=== PATIENT | female | born 1960 | race Caucasian/White ===

== ENCOUNTER 2020-04-25 10:23 | Outpatient (CLI) | payer OTHER, SELFPAY ==
--- NOTE | ~2020-04-25 | MM_ITS ---
EXAMINATION: MM screening [facility] BI w lester HISTORY: Screening mammogram TECHNIQUE: Craniocaudal and mediolateral oblique 3-D tomosynthesis images were obtained and synthetic 2-D images were generated. CAD analysis was submitted and interpreted. COMPARISON: 02/24/2019, 02/19/2018, 11/13/2016 BREAST PARENCHYMAL COMPOSITION: There are scattered areas of fibroglandular density. FINDINGS: A mass in the posterior third of the outer right breast demonstrates a waxing and waning ap pearance, likely a cyst. There is no evidence of suspicious mass, calcification, or architectural dis tortion to suggest malignancy in either breast. There has been no suspicious interval change. IMPRESSION: 1. No mammographic evidence of malignancy. 2. Recommend routine screening mammography in one year. BI-RADS Category 2: Benign finding(s). Reviewed, dictated and finalized at location A.
== END 2020-04-25 10:24 | disposition home or self-care (01) ==
PROVIDERS: PCP Registered Nurse; Visit Provider Nurse Practitioner Obstetrics & Gynecology
DX: Z12.31 Encounter for screening mammogram for malignant neoplasm of breast (principal)
CPT/HCPCS: 77063; 77067

== ENCOUNTER 2020-05-19 08:50 | Outpatient (NON) | payer OTHER, SELFPAY ==
[2020-05-20 06:46] LABS: SARS-CoV-2 RNA PCR Positive
== END 2020-05-19 08:51 ==
PROVIDERS: PCP Registered Nurse; Visit Provider Registered Nurse
DX: U07.1 COVID-19 (principal)
CPT/HCPCS: 87635; C9803; U0003

== ENCOUNTER 2021-01-15 02:32 | Inpatient (IN) | payer OTHER, SELFPAY ==
--- NOTE | ~2021-01-15 | CT_ITS ---
EXAMINATION: CT abdomen pelvis wo con DATE: 01/16/2021 14:04 INDICATION: Worsening abdominal pain, diverticulitis TECHNIQUE: Computed tomography (CT) of the abdomen and pelvis was performed without intravenous contr ast. The dose-length product (DLP) was 799.15 mGy-cm. Automated exposure control and iterative recons truction technique were employed. COMPARISON: 01/15/2021 FINDINGS: There is increased atelectasis of the lung bases, left greater than right. The heart size i s normal. The liver is diffusely low in attenuation when compared with the spleen, consistent with he patic steatosis. Hyperattenuating material in the gallbladder could reflect vicarious excretion of co ntrast from recent CT examination. The spleen and adrenal glands are normal. Pancreas divisum is note d. The kidneys are unremarkable. There is persistent inflammatory change of the ascending colon with interval increase in mesenteric fluid. No free intraperitoneal gas is identified. There are no dilate d loops of bowel. A small volume of pelvic ascites is present. No pathologically enlarged abdominal o r pelvic lymph nodes are identified. IMPRESSION: 1. Diverticulitis of the ascending colon with interval increase in adjacent inflammatory fluid in the mesentery. Reviewed, dictated and finalized at location B. IMPRESSION: 1. Diverticulitis of the ascending colon with interval increase in adjacent inf lammatory fluid in the mesentery.
--- NOTE | ~2021-01-15 | CT_ITS ---
EXAMINATION: CT abdomen pelvis w con DATE: 01/15/2021 04:22 INDICATION: Right lower quadrant abdominal pain for one day TECHNIQUE: Computed tomography (CT) of the abdomen and pelvis was performed with 100 cc Omnipaque 350 intravenous contrast. Automated exposure control and iterative reconstruction technique were employe d. Exam dose: 800.50 mGy-cm total exam DLP. COMPARISON: None. FINDINGS: There is bibasilar atelectasis, primarily in the dependent lower lobes. Normal heart size. No pericardial or pleural effusion. Diffuse hepatic steatosis. No hepatic space-occupying mass lesion. The gallbladder is unremarkable; n o gallbladder wall thickening or pericholecystic fluid or fat stranding. No bile duct or pancreatic d uct dilatation. No pancreatic mass lesion or calcification. Normal splenic size. Normal morphology of the adrenal glands. A small cyst of each kidney is suggested. No urinary tract calculus or hydroureteronephrosis. The uri nary bladder, uterus and adnexal areas are unremarkable. Normal caliber of the abdominal aorta. No intraperitoneal or retroperitoneal or pelvic mass lesion or adenopathy or ascites. Diverticulosis of the left and right colon. There is prominent pericolic fat stranding around the asc ending colon and thickening of the wall of the colon this region. There is diverticulosis of the asce nding colon. Diverticulitis of the ascending colon is suspected. No abscess cavity is identified. Normal appendix. No bowel obstruction is detected. IMPRESSION: Diverticulitis of the ascending colon Diverticulosis of left and right colon Normal appendix Gallbladder appears normal Hepatic steatosis Bibasilar atelectasis Reviewed, dictated and finalized at Location A. Reviewed, dictated and finalized at location A.
[2021-01-15 02:37] VITALS: BP 169/94; PULSE 96; RESP 20; TEMP 36.9; O2SAT 97
[2021-01-15] MEDS: ONDANSETRON INJ 4 MG/2 ML VIAL IV PUSH (03:10)
--- NOTE | 2021-01-15 03:10 | ED.GENADULT ---
HPI - General Adult General Chief complaint: Abdominal Pain Stated complaint: side pain Time Seen by Provider: 01/15/21 02:35 History of Present Illness HPI narrative: Patient 60-year-old female presents emergency department chief complaint of right lower quadrant abdominal pain. The patient reports the pain began around 8 PM yesterday reports that sharp reports not improved by anything reports is worsened with movement and palpation. The patient reports a little bit of nausea with this reports she had some diarrhea earlier reports she had no fever reports only surgical history significant for Related Data Home Medications Medication Instructions Recorded Confirmed fenofibrate micronized 134 mg PO DAILY 07/12/19 07/15/19 levothyroxine 100 mcg PO DAILY 07/12/19 07/15/19 multivitamin 1 cap PO DAILY 07/12/19 07/15/19 psyllium husk [Metamucil] 1 tbsp PO DAILY 07/12/19 07/15/19 Allergies Allergy/AdvReac Type Severity Reaction Status Date / Time No Known Allergies Allergy Verified 01/15/21 02:42 Review of Systems Review of Systems: Narrative: A 10 system review of systems was completed on the patient and is negative except for what is stated in the HPI. Nursing and ancillary documentation was reviewed. PMFSH Past Medical History Medical History Dyslipidemia Hx of adenomatous colonic polyps Hypothyroidism Surgical History Surgical History History of bunionectomy Hx of section Hx of colonoscopy Family History Family History Father Malignant neoplasm of prostate Social History Social History Years smoked: 20 Smoking status: Former smoker Tobacco type: cigarettes Alcohol intake: current Drinks per week: 3 Substance use: never Gender identity (if verbalized by the patient): Female Exam Narrative: Exam Narrative: GENERAL: Well-appearing, well-nourished, and in no acute distress. HEAD: Normocephalic, atraumatic. EYES: PERRLA and EOMI. ENT: Nares clear, no rhinorrhea or epistaxis. Mucous membranes moist. NECK: Supple. CHEST: Clear to auscultation. No respiratory distress. HEART: Regular rate and rhythm. No murmur heard. Normal peripheral pulses. ABDOMEN: Soft, tender to palpation the right lower quadrant, nondistended, normal active bowel sounds. EXTREMITIES: Normal range of motion. No edema. SKIN: Warm, dry, no rash. NEURO: No focal deficits. Alert and oriented x3. PSYCH: Normal mood and affect. Course Vital Signs Vital signs: Vital Signs Temperature 36.9 C 01/15/21 02:37 Pulse Rate 96 01/15/21 02:37 Respiratory Rate 20 01/15/21 02:37 Blood Pressure 169/94 H 01/15/21 02:37 Pulse Oximetry 97 01/15/21 02:37 Temperature 36.9 C 01/15/21 02:37 Pulse Rate 87 01/15/21 04:55 Respiratory Rate 14 01/15/21 04:55 Blood Pressure 120/61 01/15/21 04:55 Pulse Oximetry 99 01/15/21 04:55 Medical Decision Making Vital Signs Vital Signs: Vital Signs Temperature 36.9 C 01/15/21 02:37 Pulse Rate 96 01/15/21 02:37 Respiratory Rate 20 01/15/21 02:37 Blood Pressure 169/94 H 01/15/21 02:37 Pulse Oximetry 97 01/15/21 02:37 Temperature 36.9 C 01/15/21 02:37 Pulse Rate 87 01/15/21 04:55 Respiratory Rate 14 01/15/21 04:55 Blood Pressure 120/61 01/15/21 04:55 Pulse Oximetry 99 01/15/21 04:55 Lab Data Result diagrams: 01/15/21 03:16 01/15/21 03:17 Labs: Lab Results 01/15/21 01/15/21 01/15/21 Range/Units 03:16 03:17 03:17 WBC 11.4 H (4.5-10.0) K/mm3 RBC 4.69 (4.2-5.4) M/mm3 Hgb 14.4 (12.0-15.0) g/dL Hct 44.6 (37.0-47.0) % MCV 95.1 (80-100) fl MCH 30.7 (26-34) pg MCHC 32.3 (32-36) g/dl RDW 12.
[2021-01-15] MEDS: SODIUM CHLORIDE 0.9% IV 1,000 ML 999 ML IV CONT (03:11)
[2021-01-15] MEDS: HYDROmorphone HCL INJ (*CRX) 1 MG/ML SYR IV PUSH (03:15)
--- NOTE | 2021-01-15 03:15 | PC.NURSE ---
PT. states she is unable to void at this time.
[2021-01-15 03:21] LABS: Basophils Absolute Auto 0.1 K/mm3 (0.0-0.1); Basophils Percent Auto 0.8 % (0.2-1.2); Eosinophils Absolute Auto 0.1 K/mm3 (0-0.3); Eosinophils Percent Auto 0.8 % (0-4.4); Hematocrit 44.6 % (37.0-47.0); Hemoglobin 14.4 g/dL (12.0-15.0); Immature Granulocyte Absolute 0.04 K/mm3 (0.00-0.031); Immature Granulocyte Percent A 0.4 % (0-0.5); Lymphocytes Absolute Auto 1.45 K/mm3 (0.9-3.2); Lymphocytes Percent Auto 12.7 % (18.3-44.2); Mean Corpuscular HGB Conc 32.3 g/dl (32-36); Mean Corpuscular Hemoglobin 30.7 pg (26-34); Mean Corpuscular Volume 95.1 fl (80-100); Mean Platelet Volume 11.3 fl (7.4-10.4); Monocytes Absolute Auto 0.7 K/mm3 (0.1-0.6); Monocytes Percent Auto 6.3 % (2.6-8.5); Platelet Count Result 213 k/mm3 (150-375); Red Blood Count 4.69 M/mm3 (4.2-5.4); Red Cell Distribution Width 12.5 % (11.5-14.5); White Blood Count 11.4 K/mm3 (4.5-10.0)
[2021-01-15 03:32] LABS: Lipase 53 U/L (23-300)
[2021-01-15 03:34] LABS: Alanine Aminotransferase 78 U/L (4-35); Albumin Level 4.7 g/dL (3.5-5.1); Alkaline Phosphatase 53 U/L (38-126); Anion Gap 12 mmol/L (8-16); Aspartate Amino Transferase 49 U/L (14-36); Blood Urea Nitrogen 12 mg/dL (7-17); Calcium 9.7 mg/dL (8.4-10.2); Carbon Dioxide 20 mmol/L (22-30); Chloride 107 mmol/L (98-107); Estimated CRCL calculation 75 ml/min; Estimated Glomerular Filt Rate > 60; Glucose 147 mg/dL (65-110); Sodium 139 mmol/L (137-145)
[2021-01-15 04:24] LABS: Add Urine Microscopic? YES; Appearance Urine Clear (Clear); Bacteria Urine Trace /hpf; Bilirubin Urine Negative (Negative); Blood Urine Negative (Negative); Color Urine Yellow (Yellow); Glucose Urine UA Negative (Negative); Ketones Urine Trace mg/dL (Negative); Leukocyte Esterase Ur 1+ LEU/UL (Negative); Mucus Urine Few /lpf; Nitrate Urine Negative (Negative); Protein Urine 1+ mg/dL (Negative); RBC Urine 0-2 /hpf (0-2); Specific Grav Ur 1.024 (1.001-1.035); Squamous Epithelial Cell Urine Few /hpf (Few); Urobilinogen Urine Negative mg/dL (<2.0)
[2021-01-15] MEDS: PROCHLORPERAZINE EDISYLATE 10 MG/2 ML VIAL IV PUSH (04:54)
[2021-01-15 04:55] VITALS: BP 120/61; PULSE 87; RESP 14; O2SAT 99
[2021-01-15 06:55] VITALS: BP 123/74; PULSE 88; RESP 14; O2SAT 97
[2021-01-15 07:57] VITALS: BMI 31.4
[2021-01-15 08:00] VITALS: BP 140/72; PULSE 80; RESP 18; TEMP 36.6; O2SAT 97
--- NOTE | 2021-01-15 08:07 | ADMGEN ---
This patient, Angela Duran, was admitted to [facility] Surg Room 325-02. Patient/family oriented to hospital policies and general routines including ID bracelet, bed and alarms, visiting hours, pain management, procedures, bathroom and other care routines, personal items, smoking policy, room service/diet, and visiting hours. Information on how to activate the Rapid Response Team has been discussed. Patient/Family are encouraged to report perceived risks to care and to ask questions if they do not understand what they are told or what they should do.
[2021-01-15] MEDS: SODIUM CHLORIDE 0.9% IV 1,000 ML 125 ML IV CONT (08:11)
--- NOTE | 2021-01-15 09:36 | PM.IMHP ---
H&P: HPI History of Present Illness Date/Time: 01/15/21 09:36 Chief Complaint: Abdominal pain Narrative: 60yo female with hx of diverticulosis but not diverticulitis here for worsening abdominal pain and found to have diverticulitis. Patient had a colonoscopy in Jun 2019 and found to have diverticulosis, internal hemorrhoids, colonic and rectal polyps. Polyps removed with pathology showing tubular and tubulovillous adenoma. 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 The pain persisted through out the day but was mild. Abdomen was tender to touch. The pain continued the following day and was steadily worsening until it became severe around 8PM. Pain is worse with movement. No nausea or vomiting. Had diarrhea on the 01/13 and the morning on 01/14 but took anti-gas medication and antidiarrheal medication. No further BMs since. She is not passing much flatus. No melana or hematochezia. No GERD symptoms. No weight loss. No fever or chills. The remainder of the ROS was nevgative. Her symptoms became unbearable in the culinary chef hours and presented to the ED around 230am In the ED, she was hemodynamically stable with an elevated BP 169/94. She does not have HTN. WBC was 11.4K, serum bicarb 20 and mild elevation of the AST/ALT. CT A/P showing diverticulitis of the ascending colon and hepatic steatosis. UA noted and UCx collected. She was started on IV fluids and Zosyn. She was admitted for further care. Review of Systems Review of Systems: All systems reviewed & are unremarkable except as noted in HPI and below PMFSH Past Medical History Medical History Dyslipidemia Hx of adenomatous colonic polyps Hypothyroidism Surgical History Surgical History History of bunionectomy Hx of section Hx of colonoscopy Family History Family History Father Malignant neoplasm of prostate Mother COVID Pacemaker Son Diabetes mellitus Social History Social History (Updated 01/15/21 @ 09:57 by Ozzie Díaz MD) Social History: Patient lives at home with her , daughter and son. They have a dog. She quit tobacco in October of 2017. She smoked 1-2 packs every month for 25 years prior to that. She drinks 4-5 alcoholic drinks per week. No drug use. She is a full code. She nominates her to be the individual would make medical decisions for her if she is not able. Years smoked: 20 Smoking status: Former smoker Tobacco type: cigarettes Smoking end date: 10/28/17 Alcohol intake: current Drinks per week: 5 Substance use: never Gender identity (if verbalized by the patient): Female Spiritual care concerns: No Meds Home Medications and Allergies Home Medications Medication Instructions Recorded Confirmed Type Metamucil 1 tbsp PO DAILY 07/12/19 01/15/21 History fenofibrate micronized 134 mg PO DAILY 07/12/19 01/15/21 History levothyroxine 100 mcg PO DAILY 07/12/19 01/15/21 History multivitamin 1 cap PO DAILY 07/12/19 01/15/21 History ciprofloxacin HCl 500 mg PO Q12H #13 tablet 01/18/21 Rx hydrocodone-acetaminophen 1 tablet PO Q4H PRN #20 tablet 01/18/21 Rx metronidazole 250 mg PO Q8H #19 tablet 01/18/21 Rx Allergies Allergy/AdvReac Type Severity Reaction Status Date / Time No Known Allergies Allergy Verified 01/15/21 02:42 Vital Signs Vital Signs - 24 hr 01/15/21 02:37 01/15/21 04:55 01/15/21 06:55 Temperature 98.5 F Pulse Rate 96 87 88 Respiratory Rate 20 14 14 Blood Pressure 169/94 H 120/61 123/74 Pulse Oximetry 97 99 97 01/15/21 08:00 Temperature 97.8 F Pulse Rate 80 Respiratory Rate 18 Blood Pressure 140/72 Pulse Oximetry 97 Exam Narrative: Exam Narrative: AF 97.8 140/72 80 18 97% ra Gen - well-nourished, well-developed female in no acute respi
[2021-01-15] MEDS: ENOXAPARIN 40 MG/0.4 ML SYRINGE SUB-Q (12:40)
[2021-01-15] MEDS: LEVOTHYROXINE SODIUM 100 MCG TABLET PO (12:40)
[2021-01-15] MEDS: HYDROcodone/acetaminophen (*CRX) 5-325 MG TABLET 1 TAB PO ×2 (12:40→18:52)
[2021-01-15 14:00] VITALS: BP 127/76; PULSE 77; RESP 16; TEMP 36.7; O2SAT 96
[2021-01-15] MEDS: SODIUM CHLORIDE 0.9% IV 1,000 ML 100 ML IV CONT ×2 (14:18→17:11)
[2021-01-15 22:00] VITALS: BP 129/69; PULSE 85; RESP 18; TEMP 37.4; O2SAT 97
[2021-01-16] MEDS: HYDROcodone/acetaminophen (*CRX) 5-325 MG TABLET 1 TAB PO ×3 (00:55→13:19)
[2021-01-16] MEDS: SODIUM CHLORIDE 0.9% IV 1,000 ML 100 ML IV CONT ×2 (03:56→14:20)
[2021-01-16 05:53] VITALS: BP 134/74; PULSE 81; RESP 18; TEMP 36; O2SAT 96
[2021-01-16 06:29] LABS: Basophils Percent Auto 0.4 % (0.2-1.2); Eosinophils Absolute Auto 0.1 K/mm3 (0-0.3); Eosinophils Percent Auto 0.7 % (0-4.4); Hematocrit 38.6 % (37.0-47.0); Hemoglobin 12.4 g/dL (12.0-15.0); Immature Granulocyte Absolute 0.04 K/mm3 (0.00-0.031); Immature Granulocyte Percent A 0.4 % (0-0.5); Lymphocytes Absolute Auto 1.19 K/mm3 (0.9-3.2); Lymphocytes Percent Auto 13.3 % (18.3-44.2); Mean Corpuscular HGB Conc 32.1 g/dl (32-36); Mean Corpuscular Volume 96.5 fl (80-100); Mean Platelet Volume 11.7 fl (7.4-10.4); Monocytes Absolute Auto 0.6 K/mm3 (0.1-0.6); Monocytes Percent Auto 6.9 % (2.6-8.5); Neutrophils Percent Auto 78.3 % (45.5-73.1); Platelet Count Result 176 k/mm3 (150-375); Red Cell Distribution Width 12.6 % (11.5-14.5)
[2021-01-16 06:59] LABS: Alanine Aminotransferase 58 U/L (4-35); Albumin Level 3.9 g/dL (3.5-5.1); Alkaline Phosphatase 39 U/L (38-126); Anion Gap 7 mmol/L (8-16); Aspartate Amino Transferase 39 U/L (14-36); Bilirubin,Total 1.5 mg/dL (0.2-1.3); Blood Urea Nitrogen 5 mg/dL (7-17); Calcium 8.6 mg/dL (8.4-10.2); Carbon Dioxide 22 mmol/L (22-30); Chloride 107 mmol/L (98-107); Estimated CRCL calculation 75 ml/min; Estimated Glomerular Filt Rate > 60; Glucose 128 mg/dL (65-110); Sodium 136 mmol/L (137-145)
[2021-01-16] MEDS: LEVOTHYROXINE SODIUM 100 MCG TABLET PO (07:10)
[2021-01-16] MEDS: ENOXAPARIN 40 MG/0.4 ML SYRINGE SUB-Q (09:12)
[2021-01-16 11:30] VITALS: O2SAT 92
--- NOTE | 2021-01-16 13:27 | PM.IMPN ---
Progress Note: A&P Assessment and Plan (1) Acute diverticulitis: Code(s): K57.92 - Diverticulitis of intestine, part unspecified, without perforation or abscess without bleeding Status: Acute Assessment and Plan: CT Abd/Pelvis 01/15 showing acute diverticulitis of the ascending colon. No evidence of perforation. WBC 11K. She had a recent colonoscopy that showed diverticulosis but no malignancy. She has been started on Zosyn. WBC normal now and LFTs even improved but she is having considerable pain with guarding and peritoneal signs. Nml BMs so doubt obstruction. Continue IV abx. Repeat CT scan to exclude perforation. Repeat CT showing increase in inflammatory stranding. Make NPO. Contineu IV abx, (2) Elevated LFTs: Code(s): R79.89 - Other specified abnormal findings of blood chemistry Status: Acute Assessment and Plan: AST 49 and ALT 78. This could be chronic related to the hepatic steatosis and/or from focal inflammatory response from the diverticulitis. Repeat levels better. Continue to monitor (3) Hypothyroidism: Code(s): E03.9 - Hypothyroidism, unspecified Status: Acute Assessment and Plan: She states she has her TSH checked regularly so will defer rechecking it here. Continue Synthroid. (4) Dyslipidemia: Code(s): E78.5 - Hyperlipidemia, unspecified Status: Acute Assessment and Plan: LFTs mildly elevated as discussed above. Fenofibrate on hold. (5) DVT prophylaxis: Code(s): Z29.9 - Encounter for prophylactic measures, unspecified Status: Acute Assessment and Plan: Lovenox Subjective Date/time seen: 01/16/21 13:27 Interval history: 60yo female with hypothyroidism here for abdominal pain found to have diverticulitis. Patient continued to have increasing amount of pain in the right lower quadrant. Pain is worse with movement. Having normal bowel movements. No diarrhea. Feeling nauseous now. Has been up walking in her room. Exam Narrative: Exam Narrative: AF 96.8 134/74 81 18 92% ra Gen - NARD Chest - lungs are clear to auscultation anteriroly and in the flanks CV - RRR S1/S2 Abd - abdomen was soft, more protuberant, +BS. Diffuse tenderness but worse in the right mid abdomen. Rebound and referred pain noted still. + voluntary guarding Ext - no pedal edema. Psych - normal mood but obvious pain Skin - warm and dry. Not diaphoretic Objective Data Vital Signs Vital Signs: Vital Signs - 24 hr 01/15/21 14:00 01/15/21 22:00 01/16/21 05:53 Temperature 98.0 F 99.3 F 96.8 F L Pulse Rate 77 85 81 Respiratory Rate 16 18 18 Blood Pressure 127/76 129/69 134/74 Pulse Oximetry 96 97 96 01/16/21 11:30 Temperature Pulse Rate Respiratory Rate Blood Pressure Pulse Oximetry 92 Intake/Output Intake/Output: Intake & Output 01/13/21 01/14/21 01/15/21 01/16/21 23:59 23:59 23:59 23:59 Intake Total 5210 2320 Balance 5210 2320 Meds/Results Medications: Active Medications Generic Name Dose Route Start Last Admin Trade Name Freq PRN Reason Stop Dose Admin Acetaminophen 650 mg 01/15/21 10:10 Acetaminophen 325 Mg Tablet PO Q6H PRN Mild Pain (1-3) or Fever Hydrocodone Bitart/Acetaminophen 1 tab 01/15/21 10:10 01/16/21 13:19 Hydrocodone/Acetaminophen (*Crx) 5-325 Mg Tablet PO 1 tab Q6H PRN Administration Pain Rated 4-6 Enoxaparin Sodium 40 mg 01/15/21 10:15 01/16/21 09:12 Enoxaparin 40 Mg/0.4 Ml Syringe SUB-Q 40 mg DAILY PREMA Administration Hydromorphone HCl 1 mg 01/15/21 06:03 Hydromorphone Hcl Inj (*Crx) 1 Mg/Ml Syr IV PUSH Q4H PRN Pain Rated 7-10 Piperacillin/Tazobactam/Dextrose 3.375 gm in 50 mls @ 100 mls/hr 01/15/21 12:00 01/16/21 12:54 Zosyn 3.375 Gm/D5w 50ml Pm IVPB Infused Q6HR PREMA Infusion Sodium Chloride 1,000 mls @ 100 mls/hr 01/15/21 06:05 01/16/21 03:56 Normal Saline Iv IV CONT 100 mls/hr
[2021-01-16 13:36] VITALS: BP 156/75; PULSE 89; RESP 16; TEMP 35.9; O2SAT 95
[2021-01-16] MEDS: ONDANSETRON INJ 4 MG/2 ML VIAL IV PUSH (14:20)
[2021-01-16] MEDS: SODIUM CHLORIDE 0.9% IV 1,000 ML 70 ML IV CONT (17:41)
[2021-01-16] MEDS: HYDROcodone/acetaminophen (*CRX) 7.5-325 MG TABLET 1 TAB PO (17:41)
[2021-01-16 22:00] VITALS: BP 158/72; PULSE 84; RESP 18; TEMP 36.4; O2SAT 97
[2021-01-17] MEDS: HYDROcodone/acetaminophen (*CRX) 7.5-325 MG TABLET 1 TAB PO ×2 (00:18→08:34)
[2021-01-17] MEDS: ACETAMINOPHEN 325 MG TABLET 650 MG PO ×2 (03:10→23:36)
[2021-01-17] MEDS: SODIUM CHLORIDE 0.9% IV 1,000 ML 70 ML IV CONT ×2 (03:10→17:29)
[2021-01-17 06:00] VITALS: BP 134/69; PULSE 82; RESP 20; TEMP 35.9; O2SAT 94
[2021-01-17 07:09] LABS: Basophils Percent Auto 0.4 % (0.2-1.2); Eosinophils Absolute Auto 0.1 K/mm3 (0-0.3); Eosinophils Percent Auto 0.9 % (0-4.4); Hematocrit 37.6 % (37.0-47.0); Hemoglobin 11.9 g/dL (12.0-15.0); Lymphocytes Absolute Auto 1.38 K/mm3 (0.9-3.2); Lymphocytes Percent Auto 13.8 % (18.3-44.2); Mean Corpuscular HGB Conc 31.6 g/dl (32-36); Mean Corpuscular Hemoglobin 30.7 pg (26-34); Mean Corpuscular Volume 96.9 fl (80-100); Mean Platelet Volume 11.8 fl (7.4-10.4); Monocytes Absolute Auto 0.8 K/mm3 (0.1-0.6); Monocytes Percent Auto 8.2 % (2.6-8.5); Neutrophils Absolute Auto 7.6 K/mm3 (1.3-6.7); Neutrophils Percent Auto 75.7 % (45.5-73.1); Platelet Count Result 175 k/mm3 (150-375); Red Blood Count 3.88 M/mm3 (4.2-5.4); Red Cell Distribution Width 12.5 % (11.5-14.5)
[2021-01-17 07:30] LABS: Anion Gap 9 mmol/L (8-16); Blood Urea Nitrogen 4 mg/dL (7-17); Calcium 8.7 mg/dL (8.4-10.2); Carbon Dioxide 21 mmol/L (22-30); Chloride 107 mmol/L (98-107); Estimated CRCL calculation 85 ml/min; Estimated Glomerular Filt Rate > 60; Glucose 98 mg/dL (65-110); Potassium 3.7 mmol/L (3.4-5.0); Sodium 137 mmol/L (137-145)
[2021-01-17] MEDS: ENOXAPARIN 40 MG/0.4 ML SYRINGE SUB-Q (12:03)
[2021-01-17 14:00] VITALS: BP 137/64; PULSE 84; RESP 18; TEMP 35.5; O2SAT 96
[2021-01-17] MEDS: HYDROcodone/acetaminophen (*CRX) 5-325 MG TABLET 1 TAB PO ×2 (14:25→23:37)
[2021-01-17] MEDS: ONDANSETRON INJ 4 MG/2 ML VIAL IV PUSH (16:47)
--- NOTE | 2021-01-17 17:50 | PM.IMPN ---
Progress Note: A&P Assessment and Plan (1) Acute diverticulitis: Code(s): K57.92 - Diverticulitis of intestine, part unspecified, without perforation or abscess without bleeding Status: Acute Assessment and Plan: CT Abd/Pelvis 01/15 showing acute diverticulitis of the ascending colon. No evidence of perforation. WBC 11K. She had a recent colonoscopy that showed diverticulosis but no malignancy. She has been started on Zosyn. WBC normal now and LFTs improved. Still had considerable pain with guarding and peritoneal signs so CT A/p repeated w/o contrast showing diverticulitis of the ascending colon with interval increase in adjacent inflammatory fluid in the mesentery. Continue IV abx. Start diet. Advance as tolerated (2) Elevated LFTs: Code(s): R79.89 - Other specified abnormal findings of blood chemistry Status: Acute Assessment and Plan: AST 49 and ALT 78. This could be chronic related to the hepatic steatosis and/or from focal inflammatory response from the diverticulitis. Repeat levels better. Continue to monitor (3) Hypothyroidism: Code(s): E03.9 - Hypothyroidism, unspecified Status: Acute Assessment and Plan: She states she has her TSH checked regularly so will defer rechecking it here. Continue Synthroid. (4) Dyslipidemia: Code(s): E78.5 - Hyperlipidemia, unspecified Status: Acute Assessment and Plan: LFTs mildly elevated as discussed above. Fenofibrate on hold. (5) DVT prophylaxis: Code(s): Z29.9 - Encounter for prophylactic measures, unspecified Status: Acute Assessment and Plan: Lovenox Subjective Date/time seen: 01/17/21 17:50 Interval history: 60yo female with hypothyroidism here for abdominal pain found to have diverticulitis. Pain still 5/10 even after pain medications. Se feels her bladder gets distended causing abd pain. Able to void normally and feels that she is emptying her bladder. BMs are loose but no blood. Walking in the room. Exam Narrative: Exam Narrative: AF 96.0 137/64 84 18 96% ra Gen - NARD Chest - CTA bilaterally, nml RR CV - RRR S1/S2 Abd - soft, protuberant, +BS. Diffuse tenderness but worse in the right mid abdomen Ext - no pedal edema. Psych - normal mood and affect Skin - warm and dry. Not diaphoretic Objective Data Vital Signs Vital Signs: Vital Signs - 24 hr 01/16/21 22:00 01/17/21 06:00 01/17/21 14:00 Temperature 97.6 F 96.7 F L 96 F L Pulse Rate 84 82 84 Respiratory Rate 18 20 18 Blood Pressure 158/72 H 134/69 137/64 Pulse Oximetry 97 94 96 Intake/Output Intake/Output: Intake & Output 01/14/21 01/15/21 01/16/21 01/17/21 23:59 23:59 23:59 23:59 Intake Total 5210 6450 3060 Balance 5210 6450 3060 Meds/Results Medications: Active Medications Generic Name Dose Route Start Last Admin Trade Name Freq PRN Reason Stop Dose Admin Acetaminophen 650 mg 01/15/21 10:10 01/17/21 03:10 Acetaminophen 325 Mg Tablet PO 650 mg Q6H PRN Administration Mild Pain (1-3) or Fever Hydrocodone Bitart/Acetaminophen 1 tab 01/17/21 14:17 01/17/21 14:25 Hydrocodone/Acetaminophen (*Crx) 5-325 Mg Tablet PO 1 tab Q4H PRN Administration Pain Rated 4-6 Enoxaparin Sodium 40 mg 01/15/21 10:15 01/17/21 12:03 Enoxaparin 40 Mg/0.4 Ml Syringe SUB-Q 40 mg DAILY PREMA Administration Hydromorphone HCl 1 mg 01/15/21 06:03 Hydromorphone Hcl Inj (*Crx) 1 Mg/Ml Syr IV PUSH Q4H PRN Pain Rated 7-10 Piperacillin/Tazobactam/Dextrose 3.375 gm in 50 mls @ 100 mls/hr 01/15/21 12:00 01/17/21 17:29 Zosyn 3.375 Gm/D5w 50ml Pm IVPB 100 mls/hr Q6HR PREMA Administration Sodium Chloride 1,000 mls @ 70 mls/hr 01/15/21 06:05 01/17/21 17:29 Normal Saline Iv IV CONT 70 mls/hr .[id number] PREMA Administration Levothyroxine Sodium 100 mcg 01/15/21 10:15 01/17/21 06:10 Levothyroxine Sodium 100 Mcg Tablet PO Not Given
[2021-01-17 21:36] VITALS: BP 137/73; PULSE 81; RESP 18; TEMP 37.2; O2SAT 96
[2021-01-18] MEDS: LEVOTHYROXINE SODIUM 100 MCG TABLET PO (05:23)
[2021-01-18 05:38] VITALS: BP 129/80; PULSE 73; RESP 18; TEMP 36.5; O2SAT 97
[2021-01-18] MEDS: SODIUM CHLORIDE 0.9% IV 1,000 ML 70 ML IV CONT (09:34)
[2021-01-18] MEDS: ENOXAPARIN 40 MG/0.4 ML SYRINGE SUB-Q (09:34)
[2021-01-18] MEDS: HYDROcodone/acetaminophen (*CRX) 5-325 MG TABLET 1 TAB PO (12:48)
[2021-01-18 14:00] VITALS: BP 130/77; PULSE 70; RESP 16; TEMP 36.5; O2SAT 97
--- NOTE | 2021-01-18 16:38 | PM.DS ---
DS: Admitting Diagnosis Admitting Diagnosis Abdominal pain DS: Discharge Diagnosis Discharge Diagnosis (1) Acute diverticulitis: Code(s): K57.92 - Diverticulitis of intestine, part unspecified, without perforation or abscess without bleeding Status: Acute Assessment and Plan: CT Abd/Pelvis 01/15 showing acute diverticulitis of the ascending colon. No evidence of perforation. WBC 11K. She had a recent colonoscopy that showed diverticulosis but no malignancy. She was started on Zosyn. WBC normalized. LFTs improved. Still had considerable pain with guarding so CT A/P repeated 01/17 showing diverticulitis of the ascending colon with interval increase in adjacent inflammatory fluid in the mesentery. She was started on clear liquids and diet advanced. She tolerated low fiber diet and pain improved. Nml BMs. She feels ready for discharge. Patient able to be discharged home today. (2) Elevated LFTs: Code(s): R79.89 - Other specified abnormal findings of blood chemistry Status: Acute Assessment and Plan: AST 49 and ALT 78. This could be chronic related to the hepatic steatosis and/or from focal inflammatory response from the diverticulitis. Repeat levels improved. (3) Hypothyroidism: Code(s): E03.9 - Hypothyroidism, unspecified Status: Acute Assessment and Plan: She states she has her TSH checked regularly so we deferred rechecking it here. We continued her Synthroid. (4) Dyslipidemia: Code(s): E78.5 - Hyperlipidemia, unspecified Status: Acute Assessment and Plan: LFTs mildly elevated as discussed above. Fenofibrate held DS: Summary Hospital Course Reason for hospitalization: 60yo female here for abdominal pain found to have diverticulitis. Please see H&P for details Hospital Course: Please see above for details of hospital course. Status at Discharge Cognitive/behavioral status at discharge: stable Time Spent with Patient Time attestation: Total time spent providing and/or coordinating discharge services:35 minutes Time spent: Greater than 30 minutes Exam Narrative: Exam Narrative: AF 97.7 130/77 70 16 97% ra Gen - NARD Chest - CTA bilaterally, nml RR CV - RRR S1/S2 Abd - soft, less protuberant, +BS. Minimal right sided tenderness now Ext - no pedal edema. Psych - normal mood and affect Skin - warm and dry. Discharge Plan Discharge Attending physician on discharge: Ozzie Díaz Discharging Clinician: Ozzie Díaz Anticipated Discharge Date/Time: 01/18/21 16:45 Patient Disposition: Home, Self-Care Activity: as tolerated Diet: low fiber Discharge Instructions: Please avoid large gathering, wear face coverings in public and practice social distance. Please complete your antibiotic course even if you are starting to feel well. Take precautions to avoid falls. Rise slowly from a lying or sitting position. Pause before standing or walking. Contact your doctor or call 911 and come to the Emergency Room if you have any fever, worsening abdominal pain or other worrisome symptoms. Avoid NSAIDs (ibuprofen, naproxen, Aleve). Tylenol is safe to take. Follow-up with your primary care doctor in 1-2 weeks. Please call for appointment. Patient Instructions: Antibiotic Form, Diverticulitis (DC) Stand Alone Forms: General Discharge Information Follow-up/Referrals: Jayashree,Jodie [employer] [Primary Care Provider] - Call for Appointment Discharge Medications: New hydrocodone-acetaminophen 5-325 mg Tablet 1 tablet PO Q4H PRN (Reason: Pain Rated 4-6) Qty: 20 RF: 0 metronidazole 250 mg tablet 250 mg PO Q8H Qty: 19 RF: 0 ciprofloxacin HCl 500 mg tablet 500 mg PO Q12H Qty: 13 RF: 0 Continued fenofibrate micronized 134 mg capsule 134 mg PO DAILY RF: 0 levothyroxine 100 mcg tablet 100 mcg PO DAILY RF: 0 multivitamin Capsule 1 cap PO DAILY RF: 0 Held Metamucil 3.
== END 2021-01-18 17:30 | disposition home or self-care (01) | DRG 392 ==
LOC: ANHED 06:05 → ANH3MEDSUR 01-17 14:21
PROVIDERS: Admitting Provider Internal Medicine; Emergency Provider Emergency Medicine; PCP Registered Nurse; Visit Provider Internal Medicine
DX: K57.32 Diverticulitis of large intestine without perforation or abscess without bleeding (principal); R79.89 Other specified abnormal findings of blood chemistry; E03.9 Hypothyroidism, unspecified; E78.5 Hyperlipidemia, unspecified; Z86.010 Personal history of colon polyps; Z79.899 Other long term (current) drug therapy
CPT/HCPCS: 36415; 74176; 74177; 80048; 80053; 80076; 81001; 83690; 85025; 87086; 87088; 96361; 96374; 96375; 99285; A9270; J0780; J1170; J1650; J2405; J2543; J7030; Q9967

== ENCOUNTER 2021-05-08 16:32 | Outpatient (CLI) | payer OTHER, SELFPAY ==
--- NOTE | ~2021-05-08 | MM_ITS ---
CORRECTED REPORT Ordering provider changed to Yuridia Carpenter. Dr. Rosangela Richardson removed as attending provider. 05/10/2021 sef 05/14/2021 sef EXAMINATION: MM screening ruth ann BI w lester HISTORY: Screening mammogram TECHNIQUE: Craniocaudal and mediolateral oblique 3-D tomosynthesis images were obtained and synthetic 2-D images were generated. CAD analysis was submitted and interpreted. COMPARISON: No prior mammogram is available for comparison at this institution. BREAST PARENCHYMAL COMPOSITION: There are scattered areas of fibroglandular density. FINDINGS: Approximately 7.5 mm circumscribed mass is noted posteriorly in the lower outer right breast. Diagnostic right mammogram and right breast ultrasound examination are recommended. Otherwise there is no evidence of suspicious mass, calcification, or architectural distortion to suggest malignancy in either breast. IMPRESSION: 1. 7.5 mm circumscribed mass in posterior lower outer right breast 2. Diagnostic right mammogram and right breast ultrasound examination are recommended. BI-RADS Category 0: Incomplete: Needs additional imaging evaluation. Reviewed, dictated and finalized at location A. ER STRAIGHTENER MTDD IMPRESSION: 1. 7.5 mm circumscribed mass in posterior lower outer right breast 2. Diagnostic right mammogram and right breast ultrasound examination are recom mended. BI-RADS Category 0: Incomplete: Needs additional imaging evaluation.
== END 2021-05-08 16:33 | disposition home or self-care (01) ==
LOC: ANHIMG 16:34
PROVIDERS: PCP Registered Nurse; Visit Provider Nurse Practitioner Obstetrics & Gynecology
DX: Z12.31 Encounter for screening mammogram for malignant neoplasm of breast (principal); R92.8 Other abnormal and inconclusive findings on diagnostic imaging of breast
CPT/HCPCS: 77063; 77067

== ENCOUNTER 2021-06-19 13:35 | Outpatient (CLI) | payer OTHER, SELFPAY ==
--- NOTE | ~2021-06-19 | MMUS_ITS ---
EXAMINATION: MM diagnostic ruth ann RT w lester, US breast RT limited HISTORY: Possible right breast mass on screening mammogram TECHNIQUE: Additional 3-D tomosynthesis images of the right breast were performed and synthetic 2-D i mages were generated. CAD analysis was submitted and interpreted. High resolution limited right breas t ultrasound was performed. COMPARISON: 05/08/2021, 04/25/2020, 02/24/2019, 02/19/2018 BREAST PARENCHYMAL COMPOSITION: The breasts are heterogeneously dense, which may obscure small masses . FINDINGS: MAMMOGRAPHIC FINDINGS: There appears to be a stable low-density obscured mass in the posterior third of the outer breast at the 9:00 location 7 cm from the nipple. Spot compression views demonstrate no suspicious interval marcio nge when compared to prior mammograms. No suspicious calcification or architectural distortion are id entified. ULTRASOUND: There is no evidence of focal abnormal solid or cystic mass in the vicinity of the mammographic findi ng in question. IMPRESSION: 1. No mammographic or sonographic evidence of malignancy. 2. Recommend routine screening mammography in one year. BI-RADS Category 2: Benign finding(s). Reviewed, dictated and finalized at location A. ORK SYSTEMS CONSULTANT IMPRESSION: 1. No mammographic or sonographic evidence of malignancy. 2. Recommend routine screening mammography in one year. BI-RADS Category 2: Benign finding(s).
== END 2021-06-19 13:36 | disposition home or self-care (01) ==
PROVIDERS: PCP Registered Nurse; Visit Provider Nurse Practitioner Obstetrics & Gynecology
DX: R92.8 Other abnormal and inconclusive findings on diagnostic imaging of breast (principal)
CPT/HCPCS: 76642; 77061; 77065; G0279

== ENCOUNTER → 2021-11-13 11:39 | Outpatient (CLI) | payer OTHER, SELFPAY ==
--- NOTE | ~2021-11-13 | US_ITS ---
US abdomen limited INDICATION: Elevated liver function tests. PROCEDURE: Realtime right upper abdominal ultrasound. COMPARISON: No prior studies for comparison. FINDINGS: The pancreas is normal without focal mass or pancreatic ductal dilation. Liver echotexture is increased, consistent with fatty infiltration. There is normal directional flow in the portal ve in. The gallbladder is normal without stones, gallbladder wall thickening or pericholecystic fluid. Comm on bile duct measures 3.5 mm. No sonographic Richter's sign. IMPRESSION: 1: Hepatic steatosis. Reviewed, dictated and finalized at location A. IMPRESSION: 1: Hepatic steatosis.
== END ==
PROVIDERS: PCP Registered Nurse; Visit Provider Registered Nurse
DX: K76.0 Fatty (change of) liver, not elsewhere classified (principal)
CPT/HCPCS: 76705

== ENCOUNTER 2022-07-12 15:17 | Outpatient (CLI) | payer OTHER, SELFPAY ==
--- NOTE | ~2022-07-12 | MM_ITS ---
EXAMINATION: MM screening ruth ann BI w lester HISTORY: Screening TECHNIQUE: Craniocaudal and mediolateral oblique 3-D tomosynthesis images were obtained and synthetic 2-D images were generated. CAD analysis was submitted and interpreted. COMPARISON: Comparison to multiple prior studies sequentially, with oldest reviewed study dated 11/13. BREAST PARENCHYMAL COMPOSITION: Breast composed of scattered areas of fibroglandular density. FINDINGS: The left breast is stable without evidence for malignancy. There are developing asymmetries centered in the outer aspect of the right breast. IMPRESSION: 1. Developing right breast asymmetries. 2. Additional mammographic views and possible breast ultrasound are recommended. BI-RADS Category 0: Incomplete: Needs additional imaging evaluation. Reviewed, dictated and finalized at location A. SALTER IMPRESSION: 1. Developing right breast asymmetries. 2. Additional mammographic views and possible breast ultrasound are recommended . BI-RADS Category 0: Incomplete: Needs additional imaging evaluation.
== END 2022-07-12 15:18 | disposition home or self-care (01) ==
PROVIDERS: PCP Registered Nurse; Visit Provider Nurse Practitioner Obstetrics & Gynecology
DX: Z12.31 Encounter for screening mammogram for malignant neoplasm of breast (principal); R92.8 Other abnormal and inconclusive findings on diagnostic imaging of breast
CPT/HCPCS: 77063; 77067

== ENCOUNTER 2022-08-01 12:47 | Outpatient (CLI) | payer OTHER, SELFPAY ==
--- NOTE | ~2022-08-01 | MMUS_ITS ---
EXAMINATION: MM diagnostic ruth ann RT w lester, US breast RT complete HISTORY: Comparison to multiple prior studies sequentially, with oldest reviewed study dated 02/20/20 18. TECHNIQUE: Additional 3-D tomosynthesis images of the right breast were performed and synthetic 2-D i mages were generated. CAD analysis was submitted and interpreted. High resolution complete right deya st ultrasound was performed. COMPARISON: Comparison to multiple prior studies sequentially, with oldest reviewed study dated 02/19. BREAST PARENCHYMAL COMPOSITION: Breast composed of scattered areas of fibroglandular density FINDINGS: MAMMOGRAPHIC FINDINGS: There is a low-density mass in the lower outer quadrant of the right breast. There are no suspicious calcifications or architectural distortion. ULTRASOUND: Real-time complete ultrasound of the right breast including all 4 quadrants in the subareolar locatio ns:. There is a 3 mm cyst at 5:00, 10 cm from the nipple. At 7:00, 3 cm from the nipple there is an 8 mm cyst corresponding to the mammographic finding. No suspicious masses to suggest malignancy. IMPRESSION: 1. No evidence for malignancy in the right breast. Benign findings. 2. Routine yearly screening mammogram and regular clinical breast examination are recommended. BI-RADS Category 2: Benign finding(s). Reviewed, dictated and finalized at location A. LANCE MODEL IMPRESSION: 1. No evidence for malignancy in the right breast. Benign findings. 2. Routine yearly screening mammogram and regular clinical breast examination a re recommended. BI-RADS Category 2: Benign finding(s).
== END 2022-08-01 12:48 | disposition home or self-care (01) ==
PROVIDERS: PCP Registered Nurse; Visit Provider Nurse Practitioner Obstetrics & Gynecology
DX: R92.8 Other abnormal and inconclusive findings on diagnostic imaging of breast (principal)
CPT/HCPCS: 76641; 77061; 77065; G0279

== ENCOUNTER 2022-11-19 11:37 | Outpatient (NON) | payer OTHER, SELFPAY | END 2022-11-19 11:38 | disposition home or self-care (01) | LOC: ANHLAB 11-20 11:39 | PROVIDERS: PCP Registered Nurse; Visit Provider Nurse Practitioner | DX: C44.619 Basal cell carcinoma of skin of left upper limb, including shoulder (principal) | CPT/HCPCS: 88305 ==

== ENCOUNTER 2022-12-24 10:42 | Outpatient (NON) | payer OTHER, SELFPAY | END 2022-12-24 10:43 | disposition home or self-care (01) | PROVIDERS: PCP Registered Nurse; Visit Provider Nurse Practitioner | DX: C44.619 Basal cell carcinoma of skin of left upper limb, including shoulder (principal) | CPT/HCPCS: 88305 ==

== ENCOUNTER 2023-06-17 12:45 | Outpatient (CLI) | payer OTHER, SELFPAY ==
--- NOTE | ~2023-06-17 | MMUS_ITS ---
EXAMINATION: MM diagnostic ruth ann BI w lester, US breast BI complete HISTORY: 9:00 right breast lump TECHNIQUE: ML, MLO and CC full field and spot 3-D tomosynthesis images of both breasts were performed and synthetic 2-D images were generated. CAD analysis was submitted and interpreted. High resolution complete bilateral breast examination including all 4 quadrants and subareolar areas ultrasound was performed. COMPARISON: August 01, 2022 diagnostic right mammogram and complete right breast ultrasound examinat ion July 12, 2022 bilateral screening mammogram 06/19/2021 diagnostic right mammogram and limited right breast ultrasound May 08, 2021 bilateral screening BREAST PARENCHYMAL COMPOSITION: The breasts are heterogeneously dense, which may obscure small masses . FINDINGS: MAMMOGRAPHIC FINDINGS: Focal asymmetry is noted in the mid to upper outer breasts. No malignant calcification, skin thickening or retraction is detected.. ULTRASOUND: Right breast: 7:00 3 cm from nipple: Parallel circumscribed 7.5 x 4.4 x 7.9 mm sonolucency without internal vascula rity, with through transmission, consistent with benign finding, not significantly changed since 2022. No suspicious mass or shadowing of the right breast is noted otherwise. Left breast: No suspicious mass or shadowing or other significant abnormality of the left breast is detected. IMPRESSION: 1. Benign finding 2. Routine annual mammographic screening is recommended BI-RADS Category 2: Benign finding(s). Reviewed, dictated and finalized at location A. R TECHNICIAN IMPRESSION: 1. Benign finding 2. Routine annual mammographic screening is recommended BI-RADS Category 2: Benign finding(s).
== END 2023-06-17 12:46 | disposition home or self-care (01) ==
PROVIDERS: PCP Registered Nurse; Visit Provider Nurse Practitioner Obstetrics & Gynecology
DX: N63.15 Unspecified lump in the right breast, overlapping quadrants (principal)
CPT/HCPCS: 76641; 77062; 77066; G0279

== ENCOUNTER 2023-09-16 08:53 | Outpatient (CLI) | payer OTHER, SELFPAY ==
--- NOTE | ~2023-09-16 | DEXA_ITS ---
Bone Density Report Name: LUIS MAJOR Age: 62 Sex: Female Ethnicity: White Date of : 1960 Indication: osteopenia; parental hip fracture; cancer; Referring Provider: NIESHA, NIRMALA Study: Bone densitometry was performed. Exam Date: September 16, 2023 Accession number: [id number] Bone Density: Region BMD T-score Z-score Classification AP Spine(L1-L4) 1.051 0.0 1.6 Normal Femoral Neck (Left) 0.679 -1.5 -0.1 Osteopenia Total Hip (Left) 0.861 -0.7 0.4 Normal Femoral Neck (Right) 0.731 -1.1 0.4 Osteopenia Total Hip (Right) 0.800 -1.2 -0.1 Osteopenia Total Hip Mean 0.830 -1.0 0.2 Normal World Health Organization criteria for BMD impression classify patients as: Normal (T-score at or above -1.0), Osteopenia (T-score between -1.0 and -2.5), or Osteoporosis (T-score at or below -2.5). 10-year Fracture Risk(1): Major Osteoporotic Fracture 16% Hip Fracture 0.8% Reported Risk Factors: [place] (), Neck BMD=0.679, BMI=30.4, parental fracture (1) FRAX(R) Version 3.08. Fracture probability calculated for an untreated patient. Fracture probability may be lower if the patient has received treatment. Previous Exams: Region Exam Age BMD T-score BMD Change BMD Change Date g/cm2 vs Baseline vs Previous AP Spine (L1-L4) 09/16/2023 62 1.051 0.0 0.054 (5.4%)# 0.051 (5.1%)# 02/19/2018 57 0.999 -0.4 0.003 (0.3%) 0.003 (0.3%) 12/27/2015 55 0.997 -0.5 Total Hip(Left) 09/16/2023 62 0.861 -0.7 0.015 (1.8%)# 0.044 (5.4%)# 02/19/2018 57 0.816 -1.0 -0.029 (-3.4%) -0.029 (-3.4%) 12/27/2015 55 0.845 -0.8 Total Hip(Right) 09/16/2023 62 0.800 -1.2 -0.005 (-0.6%) 0.021 (2.6%)# 02/19/2018 57 0.779 -1.3 -0.026 (-3.2%) -0.026 (-3.2%) 12/27/2015 55 0.805 -1.1 *Denotes significance at 95% confidence level, LSC for AP Spine = 0.022 g/cm2, LSC for Total Hip = 0.027 g/cm2 # Denotes dissimilar scan types or analysis methods Clinical Information Provided by Patient: Parent has had a hip fracture Has used the following medications: Vitamin D, Calcium Has the following medical conditions: Cancer Patient maximum height was 67 Menopause Age: 50 Drinks caffeinated beverages Onset of menses at age 12 Number of children 2 Impression: The patient has low bone mass, based on the Left Femoral Neck T-score. The patient has an estimated ten-year risk of hip fracture of 0.8% and an estimated ten-
== END 2023-09-16 08:54 | disposition home or self-care (01) ==
PROVIDERS: PCP Registered Nurse; Visit Provider Registered Nurse
DX: Z78.0 Asymptomatic menopausal state (principal); M85.852 Other specified disorders of bone density and structure, left thigh; M85.851 Other specified disorders of bone density and structure, right thigh
CPT/HCPCS: 77080

== ENCOUNTER 2024-08-12 15:28 | Outpatient (CLI) | payer OTHER, SELFPAY ==
--- NOTE | ~2024-08-12 | MM_ITS ---
EXAMINATION: MM screening ruth ann BI w lester HISTORY: Screening TECHNIQUE: Craniocaudal and mediolateral oblique 3-D tomosynthesis images were obtained and synthetic 2-D images were generated. CAD analysis was submitted and interpreted. COMPARISON: Comparison to multiple prior studies sequentially, with oldest reviewed study dated 03/31. BREAST PARENCHYMAL COMPOSITION: Not dense: There are scattered areas of fibroglandular density. FINDINGS: There is developing asymmetry in the upper outer quadrant of the right breast, posterior th ird. The left breast is stable without evidence for malignancy. IMPRESSION: 1. Developing right breast asymmetry. 2. Additional mammographic views and possible breast ultrasound are recommended. BI-RADS Category 0: Incomplete: Needs additional imaging evaluation. Reviewed, dictated and finalized at location B. FMASTER IMPRESSION: 1. Developing right breast asymmetry. 2. Additional mammographic views and possible breast ultrasound are recommended . BI-RADS Category 0: Incomplete: Needs additional imaging evaluation.
--- OUTSIDE RECORDS SUMMARY | 2024-08-12 15:32 | XMS_ITS | Clinical Summary ---
Author Organization [facility] Address [address], [facility] [[email or web address]] [address] [place] [address] Phone Care Team Providers Care Research Worker Kitchen Name Role Phone Jodie Blanc APRN, DB Primary Care Provider + Social History Tobacco Use Types Packs/Day Years Used Date Smoking Tobacco: Never Assessed Comments Unknown Sex and Gender Information Value Date Recorded Sex Assigned at Not on file Legal Sex Female 11:27 PM CDT Gender Identity Not on file Sexual Orientation Not on file Plan of Treatment Health Maintenance Due Date Last Done Comments Hepatitis C Virus (HCV) Screening 1960 TdaP Immunization 1960 Pap Smear 1981 Cervical Cancer Screening (CCS) 1990 HPV/Cotest 1990 Cologuard 2010 Immunochemical Fecal Occult Blood 2010 Mammogram 2010 Pneumococcal Immunization (5 0+ years) (1 of 1 - PCV) 2010 Zoster Immunization (1 of 2) 2010 Influenza Immunization (#1) 2024 SARS-COV-2 Immunization ( - 2023- season) 2024 Colonoscopy 07/15/2024 07/15/2019 Colorectal Cancer Screening 07/15/2024 Respiratory Syncytial Virus (RSV) Immunization (Adult) (1 - 1-dose 75+ series) 10/21/2035 07/15/2019 Hepatitis B Immunization Aged Out No longer eligible based on patient's age to complete this topic Meningococcal Immunization (ACWY) Aged Out No longer eligible based on patient's age to complete this topic Pneumococcal Immunization Combined Aged Out No longer eligible based on patient's age to complete this topic Rotavirus Immunization Aged Out No lo nger eligible based on patient's age to complete this topic Procedures Procedure Name Priority Date/Time Associated Diagnosis Comments COLONOSCOPY Routine 07/15/2019 from Last 3 Months or Most Recently Relevant to Health Maintenance Results * COLONOSCOPY (07/15/2019) En Sanchez DO PROCEDURE/MINOR SURGICAL ORDERA BLES Final Result from Last 3 Months or Most Recently Relevant to Health Maintenance Care Teams Research Worker Kitchen Relationship Specialty Start Date End Date Jodie Blanc, JACLYN, STOVE INSTALLER [address] [place] [id number] PCP - General Family Medicine 07/20/19
--- OUTSIDE RECORDS SUMMARY | 2024-08-12 15:32 | XMS_ITS | Clinical Summary ---
Author Organization [facility] Address [address] [place] [address] Care Team Providers Care District Sales Representative Name Role Phone Jodie Blanc Primary Care Provider Allergies No known active allergies Medications VITAMIN E OR Take 800 mg by mouth daily. Active Cholecalciferol (VITAMIN D) 125 MCG (5000 UT) Cap 06/30/19 24 Active atorvastatin (LIPITOR) 20 MG tabletIndications: Mixed hyperlipidemia TAKE ONE TABLET (20MG) BY MOUTH NIGHTLY AT BEDTIME. 90 tablet 3 03/04/20 24 Active icosapent ethyl (VASCEPA) 1 G capsuleIndications :Elevated triglycerides with high cholesterol Take 2 capsules (2 g total) by mouth 2 (two) times daily with meals. 360 capsule 3 04/01/20 24 Active Na sulfate-K sulfate-Mg sulfate (SUPREP BOWEL PREP KIT) 17.5-3.13-1.6 GM/177ML SolutionIndication s:Screening for colon cancer,History of colon polyps Take 177 mLs by mouth every 12 (twelve) hours. Per GI instructions 354 mL 05/26/20 24 Active levothyroxine (SYNTHROID) 100 MCG tabletIndications: Acquired hypothyroidism TAKE ONE TABLET BY MOUTH ONCE DAILY IN THE MORNING 90 tablet 3 06/22/20 24 Active traZODone (DESYREL) 50 MG tabletIndications: Primary insomnia Take 1 tablet (50 mg total) by mouth nightly at bedtime. 30 tablet 1 07/01/19 25 Active losartan (COZAAR) 50 MG tabletIndications: Primary hypertension Take 1 tablet (50 mg total) by mouth daily. 90 tablet 3 07/01/19 25 Active cefdinir (OMNICEF) 300 MG Cap capsuleIndications :Acute cough Take 2 capsules (600 mg total) by mouth daily. 14 capsule 08/09/19 25 Active azithromycin (ZITHROMAX Z-MINERVA) 250 MG tabletIndications: Acute cough Take 2 tablets by mouth on day one then 1 daily for four days. 6 tablet 08/09/19 25 Active benzonatate (TESSALON PERLES) 100 MG capsuleIndications :Acute cough Take 1 capsule (100 mg total) by mouth every 6 (six) hours as needed for Cough. 30 capsule 08/09/19 25 Active benzonatate (TESSALON PERLES) 100 MG capsuleIndications :Acute cough Take 1 capsule (100 mg total) by mouth 3 (three) times daily as needed for Cough. 20 capsule 08/04/19 25 025 Discontin ued(Dupli martha Med) Active Problems Problem Noted Date Diagnosed Date History of colon polyps 05/26/2024 Varicose veins of bilateral lower extremities wi th pain 05/20/2024 Primary hypertension 11/05/2022 Hepatic steatosis 11/15/2021 Elevated liver function tests 11/15/2021 Diverticulosis 02/12/2021 Acquired hypothyroidism 03/22/2019 Mixed hyperlipidemia 03/22/2019 Elevated triglycerides with high cholesterol Vitamin D deficiency 03/22/2019 Proteinuria 11/11/2012 Overview (05/20/2024): Proteinuria;Practice ID: [id number] Postmenopausal bleeding 10/28/2012 Overview (05/20/2024): Postmenopausal bleeding;Recorded Elsewhere: No Location: [facility] Source: EHR Chronic: N Practice ID: [id number] Billable Time: 03:00:00 PM Microscopic hematuria 11/11/2011 Overview (05/20/2024): MICROSCOPIC HEMATURIA;Recorded Elsewhere: No Location: [facility] Source: EHR Chronic: N Practice ID: [id number] Billable Time: 10:30:00 AM Resolved Problems Problem Noted Date Diagnosed Date Resolved Date Screening for colon cancer 05/26/2024 1 08/01/2023 Encounters Date Type Department Care Team Description 08/05/2024 LendUp Message Enc [facility] Medical Group Family & Internal Medicine [address] [address] Jodie Blanc APNP Blood pressure 08/04/2024 2:00 PM TRIMMER OPERATOR Office Visit [address] [address] Jodie Blanc APNP Sore Throat; Cough; Headache 08/04/2024 Travel 08/04/[address] [address] Jodie Blanc APNP Error 08/03/[address] [address] Jodie Blanc APNP Lab Results 07/29/2024 8:40 AM TRIMMER OPERATOR Laboratory Only [address] [address] Jodie Blanc APNP 07/29/2024 Travel 07/23/[address] [address] Jodie Blanc APNP Prior Authorization ( Icosapent Ethyl 1gm capsules) 07/01/2024 8:00 AM TRIMMER OPERATOR Office Visit [address] [address] Jodie Blanc APNP Hypertension 07/01/[address] [address] Jodie Blanc APNP Lab Order 07/01/2024 Travel 06/03/2024 8:20 AM TRIMMER OPERATOR Allied Health/Nurse Visit [address] [address] Jodie Blanc APNP Allied Health Visit (Blood pressure check) 06/03/2024 Travel 05/26/2024 10:40 AM TRIMMER OPERATOR [facility] [address] [place] [phone] Jodie Blanc APNP Barnes, Lawrence J, ISAAC New Patient (New patient) 05/26/2024 Orders Only [facility] [place] [facility] [address] [place] [address] Familia Brooks MD 05/26/2024 Telephone [facility] Family & Internal Medicine [address] [address] Jodie Blanc APNP Blood Pressure 05/26/2024 Travel 05/20/2024 2:00 PM TRIMMER OPERATOR [facility] [address] [facility], [address] [place] [address] Crispin Ga MD Varicose Veins 05/20/2024 Travel from Last 3 Months Immunizations Name Administration Dates Next Due Arexvy Respiratory Syncytial Virus (RSV, adjuvanted) 0.5 mL, PF 03/25/2023 FLUCELVAX (ccIIV3, TRIVALENT, 0.5mL) 03/30/2024 Flucelvax 6 Months+ (Prefill ed Syringe) 03/29/2020,04/02/2019,04/06/2018,2016 Influenza (Generic) 06/20/2014 Influenza Adult (Generic) 03/25/2023,03/20/2022 MODERNA COVID-19 (12+) MRNA, LNP-S, PF, 100 MCG/ 0.5 ML DOSE 05/15/2021 PFIZER COVID-19 (12+) MRNA, LNP-S, PF, ELODIA-SUCROSE, 30 MCG/0.3 ML (COMIRNATY) 07/01/2024 PFIZER COVID-19 BIVALENT (12 +) mRNA, LNP-S, PF, 30 MCG/0.3 ML DOSE 08/05/2022 Pneumococcal (Prevnar 20) 05/13/2023 Shingrix 03/10/2019,01/01/2019 Tdap (Boostrix) 04/05/2019 Family History Medical History Relation Comments Arthritis Brother Cancer Father prostate Heart Mother pacemaker Heart Disease Mother Diabetes Paternal Grandmother Diabetes Son Relation Status Comments Brother Father Alive Mother Paternal Grandmother Son Social History Tobacco Use Types Packs/Day Years Used Date Smoking Tobacco: Former Cigarettes 0.3 20 0 10/28/1998 - 10/28/2018 Smokeless Tobacco: Never Tobacco Cessation:Counseling Given: Yes Alcohol Use Standard Drinks/Week Comments Yes 10 (1 standard drink = 0.6 oz pu re alcohol) AUDIT-C Answer Date Recorded Frequency of Alcohol Consumption 2-3 times a wee k 03/22/2019 Average Number of Drinks 1 or 2 019 Frequency of Binge Drinking Not on file 03/01 PHQ-2 Answer Date Recorded Patient Health Questionnaire-2 Score 0 05/26/2024 Comments No Sex and Gender Information Value Date Recorded Sex Assigned at Female 08/04/2024 2:15 PM TRIMMER OPERATOR Legal Sex Female 12:19 PM CDT Gender Identity Not on file Sexual Orientation Not on file Last Filed Vital Signs Vital Sign Reading Time Taken Comments Blood Pressure 162/94 08/04/2024 2:54 PM TRIMMER OPERATOR Pulse 96 08/04/2024 2:15 PM TRIMMER OPERATOR Temperature 37 C (98.6 F) 08/04/2024 2:15 PM TRIMMER OPERATOR Respiratory Rate 18 08/04/2024 2:15 PM TRIMMER OPERATOR Oxygen Saturation 97% 08/04/2024 2:15 PM TRIMMER OPERATOR Inhaled Oxygen Concentration - - Weight 89.8 kg (197 lb 14.4 oz) 08/04/2024 2:15 PM TRIMMER OPERATOR Height 170.2 cm (5' 7 ) 08/04/2024 2:15 PM TRIMMER OPERATOR Body Mass Index 31 08/04/2024 2:15 PM TRIMMER OPERATOR Plan of Treatment Upcoming Encounters Date Type Department Care Team (Latest Contact Info) Description 08/24/2024 2:20 PM TRIMMER OPERATOR Office Visit [facility] Medical Group Family & Internal Medicine [address] [phone] Jodie Blanc APNP [address] [place] [id number] 09/10/2024 11:28 AM CDT Hospital Encounter [facility] [address] [place] [address] Familia Brooks MD [address] [address] 09/10/2024 11:28 AM CDT - 09/10/2024 12:02 PM CDT Surgery [facility] [address] [place] [address] Familia Brooks MD [address] [id number] COLONOSCOPY DIAGNOSTIC WITH/WITHOUT SPECIMEN BRUSH/WASH Scheduled Procedures Name Priority Associated Diagnoses Date/Ti me COLONOSCOPY DIAGNOSTIC WITH/WITHOUT SPECIMEN BRUSH/WASH Screening for colon cancer History of colon polyps 09/10/2024 11:28 AM CDT Health Maintenance Due Date Last Done Comments Cervical Cancer Screening Pap with HPV Testing (Age 30 to 64) Every 5 Years 1990 Annual Physical 05/13/2024 05/13/2023, 10/31/2021 Mammogram Screening 06/17/2024 06/17/2023, 08/01/2022, 07/12/2022, Additional history exists PHQ-2 (Physician [place]) 06/30/2024 05/26/2024 Colorectal Cancer Screening Colonoscopy (10 Years) 07/30/2024 Cervical Cancer Screening Pap Smear (Age 30 to 64) Every 3 Years 05/19/2026 05/19/2023, 12/13/2021 Cervical Cancer Screening with HPV 05/19/2026 DTaP, Tdap and Td Vaccines (2 - Td or Tdap) 04/05/2029 04/05/2019 Zoster Vaccines Completed 03/10/2019, 01/01/2019 Hepatitis C Completed 10/31/2021 RSV Immunization or 60+ Years Completed 03/25/2023 Pneumococcal Vaccine: Pediatrics (0 to 5 Years) and At-Risk Patients (6 to 64 Years) Aged Out 05/13/2023 No longer eligible based on patient's age to complete this topic Influenza Adult Completed 03/30/2024, 03/01, 03/20/2022, Additional history exists COVID-19 Vaccine Completed 07/01/2024, 11/2022, 05/15/2021, Additional history exists Meningococcal B Vaccine Aged Out No l onger eligible based on patient's age to complete this topic Meningococcal Vaccine Aged Out No favio brent eligible based on patient's age to complete this topic RSV Immunizations Under 20 Months Aged Out No longer eligible based on patient's age to complete this topic Procedures Procedure Name Priority Date/Time Associated Diagnosis Comments CULTURE STREP A Routine 08/04/2024 2:59 PM TRIMMER OPERATOR Sore throat STREP A RAPID Routine 08/04/2024 Sore throat Body aches CORONAVIRUS (COVID-19) INFLUENZA A & B ANTIGEN IA PANEL Routine 08/04/2024 Sore throat Body aches COLLECTION VENOUS BLOOD VENIPUNCTURE Routine 07/29/2024 9:06 AM TRIMMER OPERATOR Primary hypertension Mixed hyperlipidemia Vitamin D deficiency General medical examination HEMOGLOBIN, GLYCOSYLATED Routine 07/29/2024 8:32 AM TRIMMER OPERATOR Elevated glucose URINALYSIS, AUTO, COMPLETE Routine 07/29/2024 8:32 AM TRIMMER OPERATOR Primary hypertension CBC W/DIFF AUTOMATED Routine 07/29/2024 8:32 AM TRIMMER OPERATOR General medical examination Primary hypertension Mixed hyperlipidemia LIPID PANEL Routine 07/29/2024 8:32 AM TRIMMER OPERATOR Mixed hyperlipidemia TSH W/REFLEX Routine 07/29/2024 8:32 AM TRIMMER OPERATOR Mixed hyperlipidemia VITAMIN D, 25 OH Routine 07/29/2024 8:32 AM TRIMMER OPERATOR Vitamin D deficiency URIC ACID BLOOD Routine 07/29/2024 8:32 AM TRIMMER OPERATOR Primary hypertension Mixed hyperlipidemia COMPREHENSIVE METABOLIC PANEL Routine 07/29/2024 8:32 AM TRIMMER OPERATOR Primary hypertension MAMMOGRAM GENERIC (SCAN ORDER) 06/17/2023 HEPATITIS C ANTIBODY Routine 10/31/2021 12:01 PM CDT Need for hepatitis C screening test from Last 3 Months or Most Recently Relevant to Health Maintenance Results * CULTURE STREP A (MG/SJS/SMD Only) (08/04/2024 2:59 PM TRIMMER OPERATOR) THROAT CULTURE STREP A ONLY Negative for Group A Streptococci Negative for Group A Streptococci 08/05/2024 6:40 PM TRIMMER OPERATOR [facility] STRUCTURE OF ANTERIOR PORTION OF NECK / Unknown 08/04/2024 2:59 PM TRIMMER OPERATOR Jodie YATES MICROBIOLOGY - GENERAL RUTLANDPaulina BISHOP Final Result Performing Organization Address City/[facility]/ZIP Co de Phone Number [facility] [address] [place] [address], [place] [phone] * CORONAVIRUS (COVID-19) INFLUENZA A & B ANTIGEN IA PANEL (08/04/2024) [facility] CORONAVIRUS ANTIGEN IA NEGATIVE NEGATIVE [facility] INFLUENZA A NEGATIVE NEGATIVE [facility] INFLUENZA B NEGATIVE NEGATIVE [facility] Internal Control: VALID VALID [facility] NASAL STRUCTURE / Unknown 08/04/2024 Jodie YATES MICROBIOLOGY - GENERAL ORDE EDNA Final Result Performing Organization Address [facility]/ZIP Co de Phone Number [facility] [address] [place] [address], * STREP A RAPID (08/04/2024) RAPID STREP TEST NEGATIVE NEGATIVE [facility] Internal Control: VALID VALID [facility] STRUCTURE OF ANTERIOR PORTION OF NECK / Unknown 08/04/2024 Jodie YATES MICROBIOLOGY - GENERAL ORDE RABLES Final Result Performing Organization Address City/[facility]/ZIP Co de Phone Number [facility] [address] [place] [address], [place] * TSH W/REFLEX (07/29/2024 8:32 AM TRIMMER OPERATOR) TSH 2.587 0.358 - 3.740 uIU/ML 07/29/2024 3:29 PM TRIMMER OPERATOR [facility] 07/29/2024 8:32 AM TRIMMER OPERATOR Jodie YATES LABORATORY Final Resul t Performing Organization Address [facility] de Phone Number [id number] [place] [address], [place] [phone] * (ABNORMAL) HEMOGLOBIN, GLYCOSYLATED (07/29/2024 8:32 AM TRIMMER OPERATOR) HGB A1C 6.0 4.5 - 6.2 % 08/04/2024 10:09 AM TRIMMER OPERATOR [facility] ESTIMATED AVG GLUCOSE 126(H) 74 - 106 MG/DL 08/04/2024 10:09 AM TRIMMER OPERATOR [facility] 07/29/2024 8:32 AM TRIMMER OPERATOR Jodie YATES LABORATORY Final Resul t Performing Organization Address [facility] Co de Phone Number [phone] [place] [address], [place] [phone] * (ABNORMAL) URINALYSIS (07/29/2024 8:32 AM TRIMMER OPERATOR) COLOR (U) YELLOW 07/29/2024 2:34 PM TRIMMER OPERATOR [facility] TRANSPARENCY CLOUDY(A) CLEAR 07/29/2024 2:[address] [facility] SPECIFIC GRAVITY (U) >1.030 1.003 - 1.040 07/29/2024 2:[address] [facility] U PH 5.5 5.0 - 9.0 07/29/2024 2:[address] [facility] PROTEIN RANDOM (U) NEGATIVE NEGATIVE 07/29/2024 2:[address] [facility] GLUCOSE (U) NEGATIVE NEGATIVE 07/29/2024 2:[address] [facility] KETONES MG/DL (U) NEGATIVE NEGATIVE 07/29/2024 2:[address] [facility] BILIRUBIN (U) NEGATIVE NEGATIVE 07/29/2024 2:[address] [facility] BLOOD (U) NEGATIVE NEGATIVE 07/29/2024 2:[address] [facility] UROBILINOGEN 0.2 0.0 - 2.0 EU/DL 07/29/2024 2:[address] [facility] NITRITES NEGATIVE NEGATIVE 07/29/2024 2:[address] [facility] LEUKOCYTES (U) NEGATIVE NEGATIVE 07/29/2024 2:[address] [facility] RBC/HPF 0-3 0 - 3 /HPF 07/29/2024 2:[address] [facility] WBC/HPF 0-3 0 - 3 /HPF 07/29/2024 2:[address] [facility] EPI/HPF 0-3 /HPF 07/29/2024 2:34 PM TRIMMER OPERATOR [facility] BACTERIA (U) TRACE(A) NONE SEEN 07/29/2024 2:[address] [facility] AMORPHOUS SEDIMENT PRESENT 07/29/2024 2:[address] [facility] URINE SPECIMEN OBTAINED BY CLEAN CATCH PROCEDURE / Unknown 07/29/2024 8:32 AM TRIMMER OPERATOR us Jodie H Jayashree YATES URINE ORDERABLES Final Resu lt [facility] [address] [facility] [place] [address], [place] [phone] * (ABNORMAL) COMPREHENSIVE METABOLIC PANEL (07/29/2024 8:32 AM TRIMMER OPERATOR) Pathologist [facility] SODIUM S/P/B 141 136 - 145 MMOL/L 07/29/2024 3:29 PM TRIMMER OPERATOR [facility] POTASSIUM S/P/B 4.7 3.5 - 5.1 MMOL/L 07/29/2024 3:29 PM TRIMMER OPERATOR [facility] CHLORIDE S/P/B 105 98 - 107 MMOL/L 07/29/2024 3:29 PM TRIMMER OPERATOR [facility] CO2 26.4 21 - 32 MMOL/L 07/29/2024 3:29 PM TRIMMER OPERATOR [facility] GLUCOSE 116(H) 70 - 99 MG/DL 07/29/2024 3:[address] [facility] BUN 12 7 - 18 MG/DL 07/29/2024 3:29 PM TRIMMER OPERATOR [facility] CREATININE S/P/B 0.76 0.55 - 1.02 MG/DL 07/29/2024 3:29 PM TRIMMER OPERATOR [facility] CALCIUM S/P/B 9.0 8.4 - 10.5 MG/DL 07/29/2024 3:29 PM TRIMMER OPERATOR [facility] BILIRUBIN TOTAL S/P/B 0.7 0.2 - 1.0 MG/DL 07/29/2024 3:[address] [facility] ALKALINE PHOSPHATASE S/P/B 72 50 - 130 U/L 07/29/2024 3:29 PM TRIMMER OPERATOR [facility] AST 28 15 - 37 U/L 07/29/2024 3:29 PM TRIMMER OPERATOR [facility] ALT 40 14 - 59 U/L 07/29/2024 3:29 PM TRIMMER OPERATOR [facility] TOTAL PROTEIN S/P/B 7.4 6.4 - 8.2 G/DL 07/29/2024 3:29 PM TRIMMER OPERATOR [facility] ALBUMIN S/P/B 4.1 3.4 - 5.0 G/DL 07/29/2024 3:29 PM TRIMMER OPERATOR [facility] ANION GAP 9.6 5 - 15 MMOL/L 07/29/2024 3:29 PM TRIMMER OPERATOR [facility] Comment:REFERENCE RANGE NOT ESTABLISHED OSMOLALITY (CALC) 293 MOSM/KG 025 3:29 PM TRIMMER OPERATOR [facility] Comment:REFERENCE RANGE NOT ESTABLISHED GFR ESTIMATE 88(L) >90 ML/MIN/1. 73 M2 07/29/2024 3:29 PM TRIMMER OPERATOR [facility] GFR NOTES GFR REFERENCE S: 07/29/2024 3:29 PM TRIMMER OPERATOR [facility] Comment: THE ESTIMATED GFR IS CALCULATED USING THE 2020 CKD-EPI EQUATION. THE FOLLOWING CATEGORIES FOR GRADING RENAL FUNCTION ARE RECOMMENDED BY THE INTERNATIONAL SOCIETY OF NEPHROLOGY (KDIGO 2012 CLINICAL PRACTICE GUIDELINE). G1,NORMAL OR HIGH: >89 ml/min/1.73 m2 G2,MILDLY DECREASED: 60-89 ml/min/1.73 m2 G3A,MILDLY TO MODERATELY DECREASED: 45-59 ml/min/1.73 m2 G3B,MODERATELY TO SEVERELY DECREASED: 30-44 ml/min/1.73 m2 G4,SEVERELY DECREASED: 15-29 ml/min/1.73 m2 G5,KIDNEY FAILURE: <15 ml/min/1.73 m2 07/29/2024 8:32 AM TRIMMER OPERATOR us Jodie YATES LABORATORY Final Resul t [facility] [address] [place] [address], * (ABNORMAL) LIPID PANEL (07/29/2024 8:32 AM TRIMMER OPERATOR) CHOLESTEROL 210(H) <200 MG/DL 07/29/2024 3:29 PM TRIMMER OPERATOR [facility] TRIGLYCERIDES 372(H) <150 MG/DL 07/29/2024 3:[address] [facility] HDL 52 >40 MG/DL 07/29/2024 3:29 PM TRIMMER OPERATOR [facility] LDL-C 84 <100 MG/DL 07/29/2024 3:29 PM TRIMMER OPERATOR [facility] VLDL CALCULATION 74(H) 5 - 28 MG/DL 07/29/2024 3:29 PM TRIMMER OPERATOR [facility] CHOL/HDL RATIO 4.0 0.0 - 4.0 07/29/2024 3:[address] [facility] LDL/HDL 1.6 0.41 - 2.13 07/29/2024 3:29 PM TRIMMER OPERATOR [facility] NON HDL CHOLESTEROL 158(H) <140 MG/DL 07/29/2024 3:[address] [facility] 07/29/2024 8:32 AM TRIMMER OPERATOR Jodie YATES LABORATORY Final Resul t [facility] [address] [place] [address], * (ABNORMAL) CBC W/DIFF AUTOMATED (07/29/2024 8:32 AM TRIMMER OPERATOR) WBC 3.71(L) 4.00 - 10.80 x10'3/uL 07/29/2024 3:[address] [facility] RBC 4.14 4.10 - 5.40 x10'6/uL 07/29/2024 3:[address] [facility] HGB 13.1 12.0 - 16.0 G/DL 07/29/2024 3:[address] [facility] HCT 40.4 36.0 - 47.0 % 07/29/2024 3:[address] [facility] MCV 97.6 78.0 - 100.0 FL 07/29/2024 3:[address] [facility] MCH 31.6(H) 27.0 - 31.0 PG 07/29/2024 3:[address] [facility] MCHC 32.4(L) 33.0 - 36.0 G/DL 07/29/2024 3:[address] [facility] RDW 13.0 11.5 - 14.5 % 07/29/2024 3:[address] [facility] PLT 132(L) 150 - 350 x10'3/uL 07/29/2024 3:[address] [facility] MPV 12.3(H) 7.4 - 10.4 FL 07/29/2024 3:[address] [facility] DIFFERENTIAL TYPE AUTOMATED DIFFERENTIAL 07/29/2024 3:[address] [facility] NEUTROPHILS % 54.3 % 07/29/2024 3:[address] [facility] LYMPHOCYTES % 32.6 % 07/29/2024 3:[address] [facility] MONOCYTES % 8.6 % 07/29/2024 3:[address] [facility] EOSINOPHILS % 3.2 % 07/29/2024 3:[address] [facility] BASOPHILS % 1.3 % 07/29/2024 3:[address] [facility] IMMATURE GRANS % 0.0 % 07/29/2024 3:[address] [facility] ABS. NEUTROPHILS 2.01 1.60 - 8.30 x10'3/uL 07/29/2024 3:[address] [facility] ABS. LYMPHOCYTES 1.21 0.80 - 4.70 x10'3/uL 07/29/2024 3:14 PM TRIMMER OPERATOR [facility] ABS. MONOCYTES 0.32 0.00 - 1.50 x10'3/uL 07/29/2024 3:14 PM TRIMMER OPERATOR [facility] ABS. EOSINOPHILS 0.12 0.00 - 0.40 x10'3/uL 07/29/2024 3:14 PM TRIMMER OPERATOR [facility] ABS. BASOPHILS 0.05 0.00 - 0.20 x10'3/uL 07/29/2024 3:14 PM TRIMMER OPERATOR [facility] ABS. IMMATURE GRANULOCYTES 0.00 0.00 - 0.03 x10'3/uL 07/29/2024 3:14 PM TRIMMER OPERATOR [facility] 07/29/2024 8:32 AM TRIMMER OPERATOR Jodie YATES LABORATORY Final Resul t Performing Organization Address City/[facility]/ZIP Co de Phone Number [address] [address], [place] [phone] * VITAMIN D, 25 OH (07/29/2024 8:32 AM TRIMMER OPERATOR) Pathologist [facility] VITAMIN D 25 HYDROXY TOTAL S/P/B 41.4 30 - 100 NG/ML 07/29/2024 3:29 PM TRIMMER OPERATOR [facility] Comment: DEFICIENT <20 INSUFFICIENT 20-30 SUFFICIENT 30-100 07/29/2024 8:32 AM TRIMMER OPERATOR Jodie YATES LABORATORY Final Resul t Performing Organization Address City/[facility]/ZIP Co de Phone Number [facility] [address] [place] [address], [place] [phone] * (ABNORMAL) URIC ACID BLOOD (07/29/2024 8:32 AM TRIMMER OPERATOR) URIC ACID 6.4(H) 2.6 - 6.0 MG/DL 07/29/2024 2:35 PM TRIMMER OPERATOR [facility] 07/29/2024 8:32 AM TRIMMER OPERATOR Jodie YATES LABORATORY Final Resul t Performing Organization Address [facility] de Phone Number [facility] [address] [place] [address], [place] [phone] * MAMMOGRAM GENERIC (06/17/2023) Anatomical Region Laterality Modality Other 06/17/2023 [facility] Scanned SCANNING Final Resu lt * HEPATITIS C ANTIBODY (10/31/2021 12:01 PM CDT) Pathologist [facility] HEPATITIS C AB NON-REACTI VE NON-REACT RAUDEL 11/02/2021 5:50 PM CDT [facility] Comment: ANTIBODIES TO HCV NOT DETECTED. DOES NOT EXCLUDE THE POSSIBILITY OF EXPOSURE TO HCV. 10/31/2021 12:0 1 PM CDT [facility] Final Resul t Performing Organization Address [facility] Co de Phone Number [facility] [address] [place] [address], [id number] from Last 3 Months or Most Recently Relevant to Health Maintenance Insurance [facility] Care Teams District Sales Representative Relationship Specialty Start Date End Date Jodie Blanc APNP [facility] [place] [address] PCP - General NURSE PRACTITIONER 02/25/19
--- OUTSIDE RECORDS SUMMARY | 2024-08-12 15:32 | XMS_ITS | Encounter Summary ---
Author Organization [facility] Address [address] [place] [address] Care Team Providers Care Technical Specialist Name Role Phone Jodie Blanc Primary Care Provider [phone] Encounter Details Date Type Department Care Team (Late st Contact Info) Description 03/28/2022 Explore.To Yellow Pagest Message Enc [facility] Family & Internal Medicine [address] [address] Jodie Blanc APNP [address] [place] [address] [phone] Change in medication Social History Tobacco Use Types Packs/Day Years Used Date Smoking Tobacco: Former Cigarettes 0.3 20 0 10/28/1998 - 10/28/2018 Smokeless Tobacco: Never Alcohol Use Standard Drinks/Week Comments Not Currently 10 (1 standard drink = 0.6 oz pu re alcohol) AUDIT-C Answer Date Recorded Frequency of Alcohol Consumption 2-3 times a wee k 03/22/2019 Average Number of Drinks 1 or 2 019 Frequency of Binge Drinking Not on file 03/01 PHQ-2 Answer Date Recorded PHQ-2 Score - If the patient scores above 3, please move on to questions 3-9 0 05/31/2021 Comments No Sex and Gender Information Value Date Recorded Sex Assigned at Female 08/04/2024 2:15 PM CARE TRANSITION MGR Legal Sex Female 12:19 PM CDT Gender Identity Not on file Sexual Orientation Not on file documented as of this encounter Plan of Treatment Upcoming Encounters Date Type Department Care Team (Latest Contact Info) Description 08/24/2024 2:20 PM CARE TRANSITION MGR Office Visit [facility] Family & Internal Medicine - [place] [address] [place] [address] Jodie Blanc APNP [address] [place] [address] 09/10/2024 11:28 AM CDT Hospital Encounter [facility] [address] [place] [address] Familia Brooks MD [address] [address] 09/10/2024 11:28 AM CDT - 09/10/2024 12:02 PM CDT Surgery [facility] Surgery [address] [place] [id number] Familia Brooks MD [address] [address] COLONOSCOPY DIAGNOSTIC WITH/WITHOUT SPECIMEN BRUSH/WASH Scheduled Procedures Name Priority Associated Diagnoses Date/Ti me COLONOSCOPY DIAGNOSTIC WITH/WITHOUT SPECIMEN BRUSH/WASH Screening for colon cancer History of colon polyps 09/10/2024 11:28 AM CDT documented as of this encounter Visit Diagnoses Not on filedocumented in this encounter Additional Health Concerns Infection Onset Date Last Indicated Resolved Time COVID-19 Rule Out 08/04/2024 08/04/2024 08/04/2024 2:55 PM CARE TRANSITION MGR Assessment Noted Time PHQ-9 Depression Total Score: 0 05/31/20 2:49 PM CARE TRANSITION MGR documented as of this encounter Care Teams Technical Specialist Relationship Specialty Start Date End Date Jodie Blanc APNP [facility] [place] [address] PCP - General NURSE PRACTITIONER 02/25/19 documented as of this encounter
--- OUTSIDE RECORDS SUMMARY | 2024-08-12 15:32 | XMS_ITS | Clinical Summary ---
Author Organization [facility] Address [address] [place] [address] Care Team Providers Care Spool Sorter Name Role Phone Yuridia Crum PUBLIC HEALTH SOCIAL WORKER Unavailable [phone]- [phone] Jodie Blanc Primary Care Provider + Allergies No known active allergies Medications multivitamin with minerals (Multiple Vitamin-Mineral s) tablet Take 1 tablet by mouth daily Active cholecalciferol (VITAMIN D-3) 2000 unit tablet Take by mouth Active fenofibrate micronized (LOFIBRA) 134 mg capsule Take one capsule daily 0 Active levothyroxine (SYNTHROID) 100 mcg tablet 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 0 Active Active Problems Problem Noted Date Diagnosed Date Acquired hypothyroidism 03/22/2019 Vitamin D deficiency 03/22/2019 Surgical History Surgery Date Site/Laterality Comments SECTION 06/30/1996 - 06/29/1997 FOOT SURGERY 06/30/2018 - 06/29/2019 Family History Medical History Relation Name Comments Prostate cancer Father Breast cancer Paternal Grandmother Relation Name Status Comments Father Alive Maternal Grandfather Maternal Grandmother Mother Paternal Grandfather Paternal Grandmother Social History Tobacco Use Types Packs/Day Years Used Date Smoking Tobacco: Former Cigarettes Q uit: 2019 Personal Safety Answer Date Recorded Getting School Help Needed Not on file 09/13 Comments Unknown Sex and Gender Information Value Date Recorded Sex Assigned at Not on file Legal Sex Female 3:52 PM CDT Gender Identity Not on file Sexual Orientation Not on file Obstetrics History Last Filed Vital Signs Vital Sign Reading Time Taken Comments Blood Pressure - - Pulse - - Temperature - - Respiratory Rate - - Oxygen Saturation - - Inhaled Oxygen Concentration - - Weight 86.2 kg (190 lb) 06/06/2020 2:06 PM 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 Height 170.2 cm (5' 7 ) 06/06/2020 2:06 PM 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 Body Mass Index 29.76 06/06/2020 2:06 PM 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 Plan of Treatment Health Maintenance Due Date Last Done Comments Breast Cancer Screening-Mammogram 1960 Cervical Cancer Screening 1960 Colon Cancer Screening-Colonoscopy 1960 Depression Screening 1960 Hepatitis C Screening 1960 Hepatitis B Screening 1978 Regular Well Visit/Exam 18-64 1978 Influenza Vaccine (#1) 2024 2, 03/29/2020, 04/02/2019, Additional history exists DTaP/Tdap/Td Vaccine (2 - Td or Tdap) 04/05/2029 04/05/2019 Zoster Vaccine Completed 03/10/2019, 01/01/2019 Pneumococcal vaccine <65 Aged Out No longer eligible based on patient's age to complete this topic Insurance [employer] ACCESS [employer] OPEN ACCESS Care Teams Spool Sorter Relationship Specialty Start Date End Date Jodie Blanc PA [address] [place] [id number] PCP - General Nurse Practitioner 05/29/20 Yuridia Crum NP Nurse Practitioner Nurse Practitioner 04/26/20
--- OUTSIDE RECORDS SUMMARY | 2024-08-12 15:32 | XMS_ITS | Data Portability ---
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 Patient will come back in a year unless there are new symptoms. Not available 12/13/2021 13:52:20 05/19/2023 05/19/2023 Annual gynecological exam performed. Patient will come back in a year unless there are new symptoms. [email or web address] Not available 05/19/2023 14:18:56 06/17/2024 06/17/2024 Annual gynecological exam performed. Patient will come back in a year unless there are new symptoms. [email or web address] Not available 06/17/2024 14:29:53 Plan of Treatment Reminders Order Date Submit Date Provider Last Modified By Organization Details Last Modified Time Details Appointments None record ed. Lab None record ed. Referral None record ed. Procedures None record ed. Surgeries None record ed. Imaging MAMMO, diagno stic, digita l, bilate ral 2023 024 [facility], [address], [place], [address], 4 04:01:55 US, breast , unilat eral - right breast lump, around 9ocloc k [address] [facility], [address], [place], [address], 4 04:01:55 DEXA, axial skelet on + verteb ral fractu re assess ment 2023 024 [facility], [address], [place], [address], 4 04:01:56 MAMMO, diagno stic, digita l, bilate ral - right breast lump, around 9ocloc k [address], [address], [place], [address], 4 16:11:45 US, breast , unilat eral 2022 023 [facility], [address], [place], [address], 3 10:49:57 DEXA, axial skelet on + verteb ral fractu re assess ment [address], [address], [place], [address], 4 16:11:45 Medication Orders None record ed. Patient TargetsNo targets recorded. Patient InstructionsNo instructions recorded. Reason for Referral None Reported. 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 Atrop hic cell mariah connor. Elect jeannie traylor jaci d by Aurelio Reynolds , CT on 2021 at 5:12 PM ----- ----- ----- ----- ----- ----- ----- ----- ----- ----- ----- ----- ----- ----- ----- ----- ----- ---- HPV RESUL TS: HPV mRNA E6/E7 : No HPV mRNA Detec lourdes NOTE: This high risk HPV mRNA assay detec ts fourt een high- risk HPV types (16, 18, 31, 33, 35, 39, 45, 51, 52, 56, 58, 59, 66, 68) witho ut diffe renti ation . COMME NT: Note: This speci men was revie wed by a Cytot echno logis t and/o r Patho logis t (as indic ated in this repor t) after evalu ation using the Thinp rep Imagi ng Syste m. CLINI MARIELENA INFOR MATIO N: Menst rual Statu s: LMP (if appli cable ): Clini marielena Histo ry/Pr eviou s Pap: Type of Neopl bhargav (if appli cable ): Signi fican t Clini marielena Findi ngs: Other Histo ry: Hormo long (if appli cable ): PAP EDUCA COURTNEY L NOTE: The Pap Test is a scree kamlesh test with an inher ent false negat kvng rate. Liqui d-bas ed sampl ing may decre ase, but will not elimi marleni, false negat kvng resul ts. A negat kvng resul t does not precl ude the prese nce and/o r devel opmen t of disea se, since the prese nce of abnor mal cells in the sampl e depen ds on the locat ion of the lesio n and sampl ing techn ique. Ajay nued regul ar scree kamlesh is the best metho d of cance r preve ntion . If repor lourdes cytol ogic findi ng do not corre late with physi marielena and/o r histo rical findi ngs, furth er inves tigat ion is recom william d, as clini issac chaudhary nted. Not Available [facility] (Lab) [address] [facility], [place], [address], 12/17/2021 18:14:46 05/19/20 23 05/19/2023 IMAGE GUIDE D PAP AND HPV REGAR DLESS image guided Pap, HPV regardless of Pap result SEE RESULT S BELOW CASE REPOR T: Cytol ogy Gynec ologi marielena Repor t Case: [id number] Autho jie g Provi doron: Deann Razo, ELIZA Colle cted: 05/19 1650 Order ing Locat ion: [place] Patho logy Recei fred: 05/20 0609 First Scree n: Dioni ambriz, Son zavaleta, CT Speci men: Scree kamlesh Pap - Image d, Cervi x STATE MENT OF ADEQU ACY: Satis facto ry for evalu ation Trans forma tion zone compo nent canno t be defin itive ly ident ified due to the prese nce of atrop hy or other hormo nal fernandes es FINAL DIAGN OSIS: Negat kvng for Intra epith elial Lesio n or Carissa chen (NIL) . Atrop hic cell mariah connor. Micaela traylor jaci d by Son Vaughan, CT on 05/21 at 7:33 PM ----- ----- ----- ----- ----- ----- ----- ----- ----- ----- ----- ----- ----- ----- ----- ----- ----- ---- HPV RESUL TS: HPV mRNA E6/E7 : No HPV mRNA Detec lourdes NOTE: This high risk HPV mRNA assay detec ts fourt een high- risk HPV types (16, 18, 31, 33, 35, 39, 45, 51, 52, 56, 58, 59, 66, 68) witho ut diffe renti ation . COMME NT: This speci men was revie wed by a Cytot echno logis t and/o r Patho logis t (as indic ated in this repor t) after evalu ation using the Thinp rep Imagi ng Syste m. CLINI MARIELENA INFOR MATIO N: Menst rual Statu s: LMP (if appli cable ): Clini marielena Histo ry/Pr eviou s Pap: Type of Neopl bhargav (if appli cable ): Signi fican t Clini marielena Findi ngs: Other Histo ry: Hormo long (if appli cable ): PAP EDUCA COURTNEY L NOTE: The Pap Test is a scree kamlesh test with an inher ent false negat kvng rate. Liqui d-bas ed sampl ing may decre ase, but will not elimi marleni, false negat kvng resul ts. A negat kvng resul t does not precl ude the prese nce and/o r devel opmen t of disea se, since the prese nce of abnor mal cells in the sampl e depen ds on the locat ion of the lesio n and sampl ing techn ique. Ajay nued regul ar scree kamlesh is the best metho d of cance r preve ntion . If repor lourdes cytol ogic findi ng do not corre late with physi marielena and/o r histo rical findi ngs, furth er inves tigat ion is recom william d, as shakiri issac chaudhary nted. Not Available [facility] (Lab) [address], [place], [address], 05/21/2023 20:36:47 07/13/1907/12/2022 MAMMO , scree kamlesh, bilat eral No observ ation record ed. [address] [facility], [place], [address], 07/17/2022 11:13:54 07/15/19 23 07/12/2022 MAMMO , scree kamlesh, bilat eral No observ ation record ed. [address], [place], [address], 07/22/2022 11:36:20 08/02/19 23 08/01/2022 MAMMO , scree kamlesh, bilat eral No observ ation record ed. [address] [address], [place], [address], 08/08/2022 12:09:52 Result Notes None recorded. Problems Name Problem SNOMED Code Status Onset Date Resolution Date Notes Provider Name and Address Organization Details Recorded Time SNOMED CT Concept Completed 201512/13/2021 Encntr for duct maker exam (general) (routine) w/o abn findings; Practice ID: [id number] Nirmala samuels [facility] 2 13:16:05 Screenin g for malignan t neoplasm of rectum Completed 201512/13/2021 Encounter for screening for malignant neoplasm of rectum;Pr actice ID: 0001 Nirmala samuels [facility] 2 13:16:[address] Concept Completed 201612/13/2021 Encntr for general adult medical exam w/o abnormal findings; Practice ID: 0001 Nirmala samuels [facility] 2 13:16:05 Microsco pic hematuri a [id number] Completed 201112/13/2021 MICROSCOP IC HEMATURIA ;Recorded Elsewhere : No Locati on: [facility] So urce: EHR Chron ic: N Practic e ID: 0001 Bill able Time: 10:30:00 AM Nirmala samuels [facility] 2 13:16:05 Speciali zed medical examinat ion Completed 201212/13/2021 Gynecolog ical Examinati on;Record ed Elsewhere : No Locati on: [facility] So urce: EHR Chron ic: N Practic e ID: 0001 Bill able Time: 01:30:00 PM Nirmala samuels [facility] 2 13:16:05 Bone density finding [id number] Completed 201712/13/2021 Oth disrd of bone density and structure , unspecifi ed site;Wyatt rded Elsewhere : No Locati on: [facility] So urce: EHR Chron ic: N Practic e ID: 0001 Bill able Time: 01:00:00 PM Nirmala samuels [facility] 2 13:16:05 Screenin g for malignan t neoplasm of cervix Completed 201112/13/2021 Screening for malignant neoplasms of the cervix;Re corded Elsewhere : No Locati on: [facility] So urce: EHR Chron ic: N Practic e ID: 0001 Bill able Time: 10:30:00 AM Nirmala samuels [facility] 2 13:16:05 Adult health examinat ion Completed 201312/13/2021 Routine Medical Exam;Wyatt rded Elsewhere : No Locati on: [facility] So urce: EHR Chron ic: N Practic e ID: 0001 Bill able Time: 01:45:00 PM Nirmala samuels [facility] 2 13:16:05 Radiolog ic finding [id number] Completed 201512/13/2021 Oth abn and inconclus kvng findings on dx imaging of breast;Re corded Elsewhere : No Locati on: [facility] So urce: EHR Chron ic: N Practic e ID: 0001 Bill able Time: 03:33:13 PM Nirmala samuels [facility] 2 13:16:05 Postmeno pausal bleeding [id number] Completed 201212/13/2021 Postmenop ausal bleeding; Recorded Elsewhere : No Locati on: [facility] So urce: EHR Chron ic: N Practic e ID: 0001 Bill able Time: 03:00:00 PM Nirmala Hu [facility] 2 13:16:05 Body mass index 25-29 - overweig ht [id number] Completed 201612/13/2021 Body mass index (BMI) 27.0-27.9 , adult;Rec orded Elsewhere : No Locati on: [facility] So urce: EHR Chron ic: N Practic e ID: 0001 Bill able Time: 11:00:00 AM Nirmala Hu [facility] 2 13:16:05 Proteinu ortiz [id number] Completed 201212/13/2021 Proteinur ia;Practi ce ID: 0001 Nirmala [facility] 2 13:16:05 Problem Notes None recorded. Procedures Surgical History Date Name Laterality Status Provider Name and Address Organization Details Recorded Time 09/11/19 24 Most Recent Bone Density completed Pauline Christie [facility] 07/15/2024 17:59:29 05/19/20 23 Date of Last [facility]23 14:20:18 08/01/19 23 Date of Last Mammogram completed Rosangelato De La Cruz [facility] 05/19/2023 13:45:18 06/30/19 19 procedure on foot completed Rosangelato De La Cruz [facility] 05/19/2023 14:21:16 01/12/20 13 [facility] 05/19/2023 13:42:39 10/29/19 13 endometrial biopsy completed Nirmala Hu [facility] 12/13/2021 13:43:17 02/05/19 97 section completed Rosangela De La Cruz [facility] 05/19/2023 14:21:55 06/30/18 78 extraction of wisdom tooth completed Rosangela De La Cruz [facility] 05/19/2023 14:21:39 Imaging Results Imaging Date Name Status LastModified by Organiz ation Details LastModified Time 07/12/2022 MAMMO, screening, bilateral completed [address] [place] [address], [address], 07/17/2022 11:13:54 07/12/2022 MAMMO, screening, bilateral completed [address] [place] [address], [address], 07/22/2022 11:36:20 08/01/2022 MAMMO, screening, bilateral completed [address] [place] [address], [id number], 08/08/2022 12:09:52 Procedure Notes None recorded. Medical Equipment None Reported. Allergies No known drug allergies Medications Name Sig Start Date Stop Date Status Note LastModified by Organization Details LastModified Time trazodone 50 mg tablet active Not Available Not Available Not Available atorvasta tin 10 mg tablet Take 1 tablet by mouth every night at bedtime active Not Available Not Available No t Available hydrocodo ne 5 mg-acetam inophen 325 mg tablet TAKE 1 TABLET BY MOUTH EVERY 4 HOURS NEEDED 12/13 completed Not Available Not Available Not Available metronida zole 250 mg tablet TAKE 1 TABLET BY MOUTH EVERY 8 HOURS 12/13 completed Not Available Not Available Not Available ciproflox acin 500 mg tablet TAKE 1 TABLET BY MOUTH EVERY 12 HOURS 12/13 completed Not Available Not Available Not Available levothyro xine 100 mcg tablet TAKE ONE TABLET BY MOUTH ONCE DAILY IN THE MORNING active Not Available Not Available No t Available losartan 25 mg tablet TAKE ONE TABLET BY MOUTH DAILY active Not Available Not Available No t Available hydrochlo rothiazid e 12.5 mg capsule take 2 capsule by oral route every day 12/13 completed Prescrib ed Elsewher e: Yes Loca tion: [facility] odify By: robby morrissey DateTime : 11/15/19 16 01:15:00 PM Not Available Not Available Not Available Vitamin D2 1,250 mcg (50,000 unit) capsule take 1 capsule by oral route every week for 8 weeks 2017 active Prescrib ed Elsewher e: No Locat ion: [facility] odify By: [email or web address] mac DateTime : 03/12/20 18 04:06:15 PM Not Available Not Available Not Available fenofibra te 160 mg tablet Take 1 tablet every day by oral route. 05/19 completed Not Available Not Available Not Available levothyro xine 05/19 completed Not Available Not Available Not Available vitamin E active Not Available Not Yoly ilable Not Available Lipofen 50 mg capsule take 1 capsule by oral route every day with a meal 12/13 completed Prescrib ed Elsewher e: Yes Loca tion: [facility] odify By: denise tillman DateTime : 11/11/19 12 10:30:00 AM Not Available Not Available Not Available Tirosint 13 mcg capsule take 1 capsule by oral route every day 12/13 completed Prescrib ed Elsewher e: Yes Loca tion: [facility] odify By: denise tillman DateTime : 11/11/19 12 10:30:00 AM Not Available Not Available Not Available sodium,po tassium,m ag sulfates 17.5 gram-3.13 gram-1.6 gram oral soln MIX AND DRINK 177 ML BY MOUTH EVERY 12 HOURS DIRECTED PER GI INSTRUCT IONS active Not Available Not Available No t Available icosapent ethyl 1 gram capsule active Not Available Not Available Not Available Vitals Date Recorded Body height Body mass index (BMI) Body weight Systolic blood pressure Diastolic blood pressure Provider Name and Address Organization Details Last Updated DateTime 12/13/2021 170.18 cm 30.4 kg/m2 56596.92 g 130 mm[Hg] 70 mm[Hg] Nirmala Hu [place] [facility] 2 13:53:55 Date Recorded Body height Body mass index (BMI) Body weight Systolic blood pressure Diastolic blood pressure Provider Name and Address Organization Details Last Updated DateTime 05/19/2023 170.18 cm 30.7 kg/m2 97941.1 g 123 mm[Hg] 78 mm[Hg] Rosangela De La Cruz [facility] 3 14:19:59 Date Recorded Body height Body mass index (BMI) Body weight Systolic blood pressure Diastolic blood pressure Provider Name and Address Organization Details Last Updated DateTime 06/17/2024 170.18 cm 31.2 kg/m2 45366.6 g 131 mm[Hg] 85 mm[Hg] Pauline Catney [facility] 4 14:31:52 Social History Question Answer Notes LastModified by Organizat ion Details LastModified Time Tobacco Smoking Status Former Smoker Deann Razo, ELIZA [address], [place], [address], [facility] 06/17/2024 14:41:25 What Is Your Level Of Alcohol Consumption? Occasional Information not available 12/13/2021 Are You Blind Or Do You Have Difficulty Seeing? No Information not available 12/13/2021 What Is Your Level Of Caffeine Consumption? Occasional Information not available 12/13/2021 In The 14 Days Before Symptom Onset, Have You Had Close Contact With A Laboratory-confir med COVID-19 While That Case Was Ill? No Information not available 05/19/2023 In The 14 Days Before Symptom Onset, Have You Had Close Contact With A Person Who Is Under Investigation For COVID-19 While That Person Was Ill? No [email or web address] Information not available 05/19/2023 Have You Been To An Area Known To Be High Risk For COVID-19? No [email or web address] Information not available 05/19/2023 Are You Deaf Or Do You Have Serious Difficulty Hearing? No Information not available 12/13/2021 What Type Of Diet Are You Following? REGULAR Information not available 12/13/2021 Have You Ever Been Counseled For Unhealthy Alcohol Use? No [email or web address] Information not available 05/19/2023 Do You Use Your Seat Belt Or Car Seat Routinely? Yes Information not available 12/13/2021 Do You Have Smoke And Carbon Monoxide Detectors In Your Home? Yes Information not available 12/13/2021 Do You Feel Stressed (tense, Restless, Nervous, Or Anxious, Or Unable To Sleep At Night)? [id number] Information not available 12/13/2021 Do You Use Any Illicit Or Recreational Drugs? No Information not available 12/13/2021 Do You Use Sunscreen Routinely? Yes Information not available 12/13/2021 Has Tobacco Cessation Counseling Been Provided? No [email or web address] Information not available 05/19/2023 Do You Or Have You Ever Used Any Other Forms Of Tobacco Or Nicotine? No [email or web address] Information not available 05/19/2023 Sex: Unknown Functional Status Question Answer Note LastModified by Organizat ion Details LastModified Time Do you have difficulty walking or climbing stairs? No Information not available 12/13/2021 Are you able to walk? YESWOREST Information not available 12/13/2021 Are you able to care for yourself? Yes Information not available 12/13/2021 Do you have difficulty dressing or bathing? No Information not available 12/13/2021 What is your exercise level? Occasional Information not available 12/13/2021 Mental Status None recorded. Family History Relationship Description Onset Age of this Age Resolved Age Notes LastModified by Organization Details LastModified Time Father Carcinoma of prostate Not available 2021 13:59:44 Maternal Aunt Malignant tumor of breast Not available 2021 13:59:50 Paternal Grandmother Malignant tumor of breast Not available 2021 14:00:00 Mother Hypertensive disorder Not available 2021 14:00:09 Maternal Grandmother Heart disease Not available 2021 14:00:16 Medical History Condition Response Allergies (Food, seasonal, environmental ) N Other N Breast Cancer N Drug/Latex Allergies/Reactions N Blood Transfusion N Lung Disease N Dermatologic Disorders N Defects or Inherited Disease N Breast Problem N Gestational Diabetes N Hematologic disorders N Anesthesia Complications N History of STI N Deep Vein Thrombosis N Polycystic ovary syndrome N Anxiety Disorder N Autoimmune disease N Arthritis N Polyps N Infertility N History of abnormal pap N Acid Reflux (GERD) N Cancer N Varicosities N Stroke N Neurologic/Epilepsy N Endometriosis N High Cholesterol Y Fibromyalgia N Headaches N Kidney Disease N Heart Problems N Kidney or Bladder Problems N Thyroid Problems Y GI Problems N Eating Disorder N Anemia N Art (IVF or FET) N Psychiatric Illness N Ovarian Cancer N Diabetes N Pulmonary (TB, Asthma) N Hepatitis/Liver Disease N No Past Medical History N Eczema N Urinary Tract Infection N Abuse/Domestic Violence N Asthma N Trauma/Violence N Depression/ depression N Heart Disease N Pre-Eclampsia N Hypertension Y Osteoporosis Y Thrombophilias N Gynecological History Statement/Question Response Abnormal Pap Y Date of Last Mammogram 08/01/2022 Date of LMP 06/30/2010 STIs/STDs N HPV Vaccine N Current Control Method Menopause If Post Menopausal, Age at Menopause 50 Date of Last Colonoscopy Most Recent Bone Density 09/11/2023 Sexually Active? Y Menses Monthly N Age of first menstrual cycle 11 Date of Last Pap Smear 05/19/2023 Sexual Problems? N LMP Approximate Obstetrics History GPAL:G 2 P 2 0 0 2 Type Value Full Term 2 Living 2 Total 2 Past Encounters Encounter ID Performer Location Encounter Start Date Encounter Closed Date Diagnosis/Indication Diagnosis SNOMED-CT Code Diagnosis ICD10 Code Diagnosis Note [id number] Yuridia Crum [facility] [address] [address] 12/13/2021 13:31:17 12/13/2021 14:28:20 Gynecologic examination 73091115 Z01.419 Take Calcium with Vitamin D 12-1500mg daily. Do monthly self breast exams. It is advised to get annual flu shot in the fall and she could obtain at [facility] or [facility] care clinic. If you haven't received the Tdap vaccine in the last 10 years you should obtain one as well. Have mammogram yearly, bone density every 2-3 years and colonoscop y every 5-10 years depending on findings and history. Engage in daily exercise of low impact aerobic exercise 45-60 minutes 4-5 times weekly. Avoid tobacco and illicit drugs as well as using moderation with alcohol intake less than 1-2 8 oz beverages daily. This lifestyle behavior pattern will lead to less health conditions and longer life span. If BMI greater than 25 weight watchers or dietary consult advised. Questions have been answered. Patient appears to understand instructio ns, but if you have any further questions call or respond to this email Pap/hpv sent STD Screen declined Genetic Screen discussed Colon Screen UTD PCP Dexa Screen UTD PCP Routine Labs UTD PCPMammo ordered [id number] CHICHI Florentino Ainsworth [address] [address] 05/19/2023 14:08:05 05/19/2023 15:17:05 Gynecologic examination 10686515 Z01.419 WWEpostmen opausalpap updatedSTI testing declinedco lonoscopy UTDdexa order givenUTD with PCP for routine labsRTC in 1 yr or sooner if needed Take Calcium with Vitamin D daily. Do monthly self breast exams. It is advised to get annual flu shot in the fall and she could obtain at [facility] or [facility] care clinic. If you haven't received the Tdap vaccine in the last 10 years you should obtain one as well. Have mammogram yearly, bone density every 2-3 years and colonoscop y every 5-10 years depending on findings and history. Engage in daily exercise of low impact aerobic exercise 45-60 minutes 4-5 times weekly. Avoid tobacco and illicit drugs as well as using moderation with alcohol intake less than 1-2 8 oz beverages daily. This lifestyle behavior pattern will lead to less health conditions and longer life span. If BMI greater than 25 dietary consult advised. Questions have been answered. Patient appears to understand instructio ns, but if you have any further questions call or respond to this email Screening for malignant neoplasm of breast [id number] Z12.39 Screening for osteoporosis 672407572 Z13.820 Breast lump [id number] N63 .0 Right breast lump present for 2-3 yrshas seen specialist previously , no biopsy requireddi agnostic imaging w/ u/s ordered if needed [id number] CHICHI Florentino Ains[facility] [address] [address] 06/17/2024 14:04:23 06/17/2024 15:07:46 Gynecologic examination 80072358 Z01.419 WWEpostmen opausalPap - UTD/not indicated todaySTI screen - declinedMa mmogram - order givenColon cancer screening - ordered through PCPDexa - order givenRouti ne labs - UTD/PCPRTC in 1 yr or sooner if needed Do monthly self breast exams.It is advised to get annual flu shot in the fall and she could obtain at local pharmacy. If you haven't received the Tdap vaccine in the last 10 years you should obtain one as well.Have mammogram yearly, bone density every 2-3 years and stay up to date on colon cancer screening. Engage in regular exercise. Avoid tobacco and illicit drugs. This lifestyle behavior pattern will lead to less health conditions and longer life span. If BMI greater than 25 dietary consult advised.Qu estions have been answered. Mass of right breast [id number] N63.10 diagnostic mammogram with right breast u/s for right breast lump Screening for osteoporosis [id number] Z13.820 Health Concerns Section Related Observation LastModified by Organization Detai ls LastModified Time None Recorded Concern Status LastModified by Organization Details LastModified Time None Recorded Advance Directives Directive None Recorded Payers Encounter Date Sequence Insurance Name Policy Number Policy Nichols Covered Member ID Nichols Member ID Guarantor Name 12/13/2021 1 [facility] [id number] Cecilia Bobi [id number] Angela Gifford Renee 05/19/2023 1 [facility] [id number] Cecilia Bobi [id number] Angela Gifford Renee 06/17/[address] [place] [address] [id number] Cecilia Bobi [id number] 2 Angela Duran Notes Date Note Type Note Provider Name and Address Organization Details Recorded Time 2 text/html 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 Post-MenopausalReported bypatient.Menopausal Symptoms:no menopausal symptoms; normal vaginal lubrication Vaginal Bleeding:history of menopause having occurred; no history of post menopausal bleeding Urinary Symptoms:no hematuria; no incontinence; no nocturia; no urinary frequency Vulva:no genital lesion; no vulvar atrophy Vagina:normal vaginal discharge; no vaginal atrophy Breast:no breast lump; no nipple discharge; no breast pain Sexual Complaints:no sexual complaints Psychological Symptoms:no depression; no anxiety Preventive Measures:encourage regular mammograms starting age 40; encourage self breast examination; encourage regular exercise; encourage no tobacco use; needs to schedule mammogram; history of recent colonoscopy CHICHI Arroyo- [address], [place], [address], [facility] 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 Post-MenopausalReported bypatient.Menopausal Symptoms:no menopausal symptoms; normal vaginal lubrication Vaginal Bleeding:history of menopause having occurred; no history of post menopausal bleeding Urinary Symptoms:no hematuria; no incontinence; no nocturia; no urinary frequency Vulva:no genital lesion; no vulvar atrophy Vagina:normal vaginal discharge; no vaginal atrophy Breast:no breast lump; no nipple discharge; no breast pain Sexual Complaints:no sexual complaints Psychological Symptoms:no depression; no anxiety Preventive Measures:encourage regular mammograms starting age 40; encourage self breast examination; encourage regular exercise; encourage no tobacco use; mammogram performed within the past year; history of recent colonoscopy; needs to schedule bone densityNotes:right breast lump, present for 2-3 yrs. Has seen a breast specialist in the past, no biopsy required CHICHI Florentino [address], [place], [address], [facility] 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 Saw breast specialist 3 yrs ago, imaging done 2022 benign findings Sexual Complaints:no sexual complaints Psychological Symptoms:no depression; no anxiety Preventive Measures:encourage regular mammograms starting age 40; encourage self breast examination; encourage regular exercise; encourage no tobacco useNotes:63yo wwepostmenopausallast pap 04/2023 : nilm, HPV (-)mammogram exa last 2017colonoscopy 2013 Deann Razo, WHELI[facility] [address], [place], [address], [facility] 06/17/2024 15:05:13 OBGyn Episode Ob Episode Information Episode Created Date Number of Fetuses Patient Bloodtype Patient rh Status Prepregnancy Weight lbs Domestic Partner Domestic Partner Phone Father Name Career Technical Counselor Status 12/14/19 22 1 CLOSED Fetus Data First Name Last Name Admitted to NICU Weight (g) Sex Living Outcome Pediatric Complications Fetus ID Race Codes Race Delivery Type 2919.77 1704 M Full Term [id number] V Back Matt Calculation Initial Matt Date Initial Exam Date Initial Exam Provider Initial Ultrasound Date Last Menstrual Period Date Ultra Sound Weeks Gestation 0 Eighteen To Twenty Week Matt Update Ultra Sound Date Fundal Height At Umbil Quickening Date Ultra Sound Latest Weeks Gestation Final Matt Confirmed By Final Matt Confirmed Date Final Matt Date Ultra Sound Latest Days Gestation 0 0 Menstrual History Last Menstrual Date Menses Monthly On Bcp Conception Prior Menses Frequency Hcg Plus Date Menarche Onset Age Delivery Information Delivery Date Delivery Type Labor Anesthesia Weeks Gestation Incision Type Labor Labor Length Hrs Delivered By Post Complications Tubal Sterilization Discharge Date Comments 8 Discharge Information Feeding Method Contraceptive Method Maternal HG B and HCT Levels Ob Episode Information Episode Created Date Number of Fetuses Patient Bloodtype Patient rh Status Prepregnancy Weight lbs Domestic Partner Domestic Partner Phone Father Name Career Technical Counselor Status 12/14/19 22 1 CLOSED Fetus Data First Name Last Name Admitted to NICU Weight (g) Sex Living Outcome Pediatric Complications Fetus ID Race Codes Race Delivery Type 2891.64 9 F Full Term [id number] Primary Matt Calculation Initial Matt Date Initial Exam Date Initial Exam Provider Initial Ultrasound Date Last Menstrual Period Date Ultra Sound Weeks Gestation 0 Eighteen To Twenty Week Matt Update Ultra Sound Date Fundal Height At Umbil Quickening Date Ultra Sound Latest Weeks Gestation Final Matt Confirmed By Final Matt Confirmed Date Final Matt Date Ultra Sound Latest Days Gestation 0 0 Menstrual History Last Menstrual Date Menses Monthly On Bcp Conception Prior Menses Frequency Hcg Plus Date Menarche Onset Age Delivery Information Delivery Date Delivery Type Labor Anesthesia Weeks Gestation Incision Type Labor Labor Length Hrs Delivered By Post Complications Tubal Sterilization Discharge Date Comments 7 Discharge Information Feeding Method Contraceptive Method Maternal HG B and HCT Levels
--- OUTSIDE RECORDS SUMMARY | 2024-08-12 15:32 | XMS_ITS | Referral Summary ---
Author Organization [facility] Address [address] [place] [address] Care Team Providers Care Doctor Of Medicine Name Role Phone Yuridia Crum CLASSROOM PARAPROFESSIONAL Unavailable [phone] Jodie Blanc Primary Care Provider + Allergies No known active allergies Medications multivitamin with minerals (Multiple Vitamin-Mineral s) tablet Take 1 tablet by mouth daily Active cholecalciferol (VITAMIN D-3) 2000 unit tablet Take by mouth Active fenofibrate micronized (LOFIBRA) 134 mg capsule Take one capsule daily 0 Active levothyroxine (SYNTHROID) 100 mcg tablet Take 100 mcg by mouth pick out hand before breakfast 0 Active Active Problems Problem Noted Date Diagnosed Date Acquired hypothyroidism 03/22/2019 Vitamin D deficiency 03/22/2019 Social History Tobacco Use Types Packs/Day Years [...] 86.2 kg (190 lb) 06/06/2020 2:06 PM PHYSICIAN ASSISTANT Height 170.2 cm (5' 7 ) 06/06/2020 2:06 PM PHYSICIAN ASSISTANT Body Mass Index 29.76 06/06/2020 2:06 PM PHYSICIAN ASSISTANT Plan of Treatment Not on file Insurance Care Teams Doctor Of Medicine Relationship Specialty Start Date End Date Jodie Blanc PA [address] [place] [id number] PCP - General Nurse Practitioner 05/29/20 Yuridia Crum NP Nurse Practitioner Nurse Practitioner 04/26/20
== END 2024-08-12 15:29 | disposition home or self-care (01) ==
LOC: ANHIMG 15:30
PROVIDERS: PCP Registered Nurse; Visit Provider Nurse Practitioner
DX: Z12.31 Encounter for screening mammogram for malignant neoplasm of breast (principal); N63.11 Unspecified lump in the right breast, upper outer quadrant; N64.89 Other specified disorders of breast
CPT/HCPCS: 77063; 77067

== ENCOUNTER 2024-09-15 13:15 | Outpatient (CLI) | payer OTHER, SELFPAY ==
--- NOTE | ~2024-09-15 | MMUS_ITS ---
EXAMINATION: MM diagnostic ruth ann RT w lester, US breast RT complete HISTORY: Follow-up right breast asymmetry TECHNIQUE: Additional 3-D tomosynthesis images of the right breast were performed and synthetic 2-D i mages were generated. CAD analysis was submitted and interpreted. High resolution Limited right breas t ultrasound was performed. COMPARISON: Comparison to multiple prior studies sequentially, with oldest reviewed study dated 02/2021. BREAST PARENCHYMAL COMPOSITION: Dense: The breasts are heterogeneously dense, which may obscure small masses FINDINGS: MAMMOGRAPHIC FINDINGS: There is a developing asymmetry in the upper outer quadrant of the right breast, posterior third. The re are no suspicious calcifications. ULTRASOUND: Complete US of all 4 quadrants of the right Breast/s and retroareolar region was reviewed. At 7:00, 3 cm from the nipple there is an 8 mm cyst. At 9:00 there is a 3 mm cyst. At 10:00, 5 cm from the nipp le there is an irregular shaped hypoechoic mass with posterior shadowing and internal vascularity adry suring approximately 1.3 x 1 cm. IMPRESSION: 1. Complex irregular shaped shadowing mass of the right breast corresponds to the area of asymmetry i n the upper outer quadrant of by mammography. This mass measures up to 1.3 cm by ultrasound. 2. Ultrasound-guided right breast biopsy recommended. BI-RADS category 4, suspicious findings. Reviewed, dictated and finalized at location B. IMPRESSION: 1. Complex irregular shaped shadowing mass of the right breast corresponds to t he area of asymmetry in the upper outer quadrant of by mammography. This mass m easures up to 1.3 cm by ultrasound. 2. Ultrasound-guided right breast biopsy recommended. BI-RADS category 4, suspicious findings.
--- OUTSIDE RECORDS SUMMARY | 2024-09-15 14:42 | XMS_ITS | Clinical Summary ---
Author Organization [facility] Address [address] [place] [address] Care Team Providers Care Career Law Clerk Name Role Phone Jodie Blanc Primary Care Provider [phone] Allergies No known active allergies Medications VITAMIN E OR Take 800 mg by mouth daily. Active Cholecalciferol (VITAMIN D) 125 MCG (5000 UT) Cap 024 Active icosapent ethyl (VASCEPA) 1 G capsuleIndication s:Elevated triglycerides with high cholesterol Take 2 capsules (2 g total) by mouth 2 (two) times daily with meals. 360 capsule 3 024 Active levothyroxine (SYNTHROID) 100 MCG tabletIndications :Acquired hypothyroidism TAKE ONE TABLET BY MOUTH ONCE DAILY IN THE MORNING 90 tablet 3 024 Active traZODone (DESYREL) 50 MG tabletIndications :Primary insomnia Take 1 tablet (50 mg total) by mouth nightly at bedtime. 30 tablet 1 025 Active Additional Information Patient taking differently:50 mg OralAs needed, Sleep, Reported on 09/02/2024 losartan (COZAAR) 50 MG tabletIndications :Primary hypertension Take 1 tablet (50 mg total) by mouth daily. 90 tablet 3 025 Active atorvastatin (LIPITOR) 40 MG tabletIndications :Mixed hyperlipidemia Take 1 tablet (40 mg total) by mouth nightly at bedtime. 90 tablet 3 025 Active atorvastatin (LIPITOR) 20 MG tabletIndications :Mixed hyperlipidemia TAKE ONE TABLET (20MG) BY MOUTH NIGHTLY AT BEDTIME. 90 tablet 3 024 2024 Discontinued(D ose adjustment) Na sulfate-K sulfate-Mg sulfate (SUPREP BOWEL PREP KIT) 17.5-3.13-1.6 GM/177ML SolutionIndicatio ns:Screening for colon cancer,History of colon polyps Take 177 mLs by mouth every 12 (twelve) hours. Per GI instructions 354 mL 024 2024 Discontinued cefdinir (OMNICEF) 300 MG Cap capsuleIndication s:Acute cough Take 2 capsules (600 mg total) by mouth daily. 14 capsule 025 2024 Discontinued(T herapy completed) azithromycin (ZITHROMAX Z-MINERVA) 250 MG tabletIndications :Acute cough Take 2 tablets by mouth on day one then 1 daily for four days. 6 tablet 025 2024 Discontinued(T herapy completed) benzonatate (TESSALON PERLES) 100 MG capsuleIndication s:Acute cough Take 1 capsule (100 mg total) by mouth every 6 (six) hours as needed for Cough. 30 capsule 025 2024 Discontinued(T herapy completed) Active Problems Problem Noted Date Diagnosed Date Primary insomnia 08/24/2024 History of colon polyps 05/26/2024 Varicose veins of bilateral lower extremities wi th pain 05/20/2024 Primary hypertension 11/05/2022 Hepatic steatosis 11/15/2021 Elevated liver function tests 11/15/2021 Diverticulosis 02/12/2021 Acquired hypothyroidism 03/22/2019 Mixed hyperlipidemia 03/22/2019 Elevated triglycerides with high cholesterol Vitamin D deficiency 03/22/2019 Proteinuria 11/11/2012 Overview (05/20/2024): Proteinuria;Practice ID: [id number] Postmenopausal bleeding 10/28/2012 Overview (05/20/2024): Postmenopausal bleeding;Recorded Elsewhere: No Location: [facility] Source: EHR Chronic: N Practice ID: [id number] Billable Time: 03:00:00 PM Microscopic hematuria 11/11/2011 Overview (05/20/2024): MICROSCOPIC HEMATURIA;Recorded Elsewhere: No Location: [facility] Source: EHR Chronic: N Practice ID: [id number] Billable Time: 10:30:00 AM Resolved Problems Problem Noted Date Diagnosed Date Resolved Date Screening for colon cancer 05/26/2024 1 08/01/2023 Screening for colon cancer 05/26/2024 0 09/06/2024 Screening for colon cancer 05/26/2024 0 09/13/2024 Encounters Date Type Department Care Team Description 09/15/2024 Telephone [facility] [address], [address] [place] [address] Nishi Stone MD Results 09/10/2024 11:26 AM CDT Anesthesia Event [facility] [address] [place] [address] Aby Trammell, Clara Mathew, SAP BASIS 09/10/2024 11:12 AM CDT - 09/10/2024 11:46 AM CDT Surgery [facility] Surgery [address] [place] [address] Nishi Stone MD Colonoscopy with polypectomy 09/10/2024 9:18 AM CDT - 09/10/2024 12:30 PM CDT Hospital Encounter [facility] [address] [place] [address] Nishi Stone MD Discharge Disposition: Home or Self Care (Routine Discharge) 09/10/2024 Travel 08/24/2024 2:20 PM TEST CENTER ADMINISTRATOR Office Visit [facility] [address] [address] Jodie Blanc APNP Annual 08/24/2024 Scan [facility] INFO SRVCS Scanned, [facility] 08/24/2024 Travel 08/18/2024 Telephone [facility] - [address] [place] [phone] Nishi Stone MD Prior Authorization (Colonoscopy-[id number]) 08/12/2024 Scan [employer] INFO SRVCS Scanned, [facility] Mammogram (SCAN) 08/05/2024 [facility] Enc [address] [address] Jodie Blanc APNP Blood pressure 08/04/2024 2:00 PM TEST CENTER ADMINISTRATOR Office Visit [address] [phone] Jodie Blanc APNP Sore Throat; Cough; Headache 08/04/2024 Travel 08/04/[address] [phone] Jodie Blanc APNP Error 08/03/[address] [address] Jodie Blanc APNP Lab Results 07/29/2024 8:40 AM TEST CENTER ADMINISTRATOR Laboratory Only [address] [address] Jodie Blanc APNP 07/29/2024 Travel 07/23/[address] [phone] Jodie Blanc APNP Prior Authorization ( Icosapent Ethyl 1gm capsules) 07/01/2024 8:00 AM TEST CENTER ADMINISTRATOR Office Visit [address] [phone] Jodie Blanc APNP Hypertension 07/01/[address] [phone] Jodie Blanc APNP Lab Order 07/01/2024 Travel from Last 3 Months Immunizations Name [...] drink = 0.6 oz pu re alcohol) 3-4 glasses weekly AUDIT-C Answer Date Recorded Frequency of Alcohol Consumption 2-3 times a wee k 03/22/2019 Average Number of Drinks 1 or 2 019 Frequency of Binge Drinking Not on file 03/01 PHQ-2 Answer Date Recorded Patient Health Questionnaire-2 Score 0 08/24/2024 Comments No Sex and Gender Information Value Date Recorded Sex Assigned at Female 08/04/2024 2:15 PM TEST CENTER ADMINISTRATOR Legal Sex Female 12:19 PM CDT Gender Identity Female 08/24/2024 2:26 PM TEST CENTER ADMINISTRATOR Sexual Orientation Not on file Last Filed Vital Signs Vital Sign Reading Time Taken Comments Blood Pressure 140/76 09/10/2024 12:15 PM CDT Pulse 72 09/10/2024 11:56 AM CDT Temperature 35.7 C (96.2 F) 09/10/2024 9:39 AM CDT Respiratory Rate 18 09/10/2024 12:15 PM CDT Oxygen Saturation 96% 09/10/2024 12:15 PM CDT Inhaled Oxygen Concentration - - Weight 87.1 kg (192 lb) 09/10/2024 9:39 AM CDT Height 170.2 cm (5' 7 ) 09/10/2024 9:39 AM CDT Body Mass Index 30.07 09/10/2024 9:39 AM CDT Plan of Treatment Health Maintenance Due Date Last Done Comments Cervical Cancer Screening Pap with HPV Testing (Age 30 to 64) Every 5 Years 1990 Mammogram Screening 08/12/2025 08/12/2024, 06/17/2023, 08/01/2022, Additional history exists Annual Physical 08/24/2025 08/24/2024, 04/30, 10/31/2021 Cervical Cancer Screening Pap Smear (Age 30 to 64) Every 3 Years 05/19/2026 05/19/2023, 12/13/2021 Cervical Cancer Screening with HPV 05/19/2026 Colorectal Cancer Screening Colonoscopy (10 Years) 09/11/2027 09/10/2024 DTaP, Tdap and Td Vaccines (2 - [...] Completed 07/01/2024, 11/2022, 05/15/2021, Additional history exists PHQ-2 (Physician [place]) Completed 08/24/2024 Meningococcal B Vaccine Aged Out No l onger eligible based on patient's age to complete this topic Meningococcal Vaccine Aged Out No favio brent eligible based on patient's age to complete this topic RSV Immunizations Under 20 Months Aged Out No longer eligible based on patient's age to complete this topic Procedures Procedure Name Priority Date/Time Associated Diagnosis Comments COLONOSCOPY FLX DX W/COLLJ SPEC WHEN PFRMD 09/10/2024 11:26 AM CDT Screening for colon cancer History of colon polyps Case Notes C PATHOLOGY Routine 09/10/2024 12:00 AM CDT MAMMOGRAM GENERIC (SCAN ORDER) 08/12/2024 CULTURE STREP A Routine 08/04/2024 2:59 PM TEST CENTER ADMINISTRATOR Sore throat STREP A RAPID Routine 08/04/2024 Sore throat Body aches CORONAVIRUS (COVID-19) INFLUENZA A & B ANTIGEN IA PANEL Routine 08/04/2024 Sore throat Body aches COLLECTION VENOUS BLOOD VENIPUNCTURE Routine 07/29/2024 9:06 AM TEST CENTER ADMINISTRATOR Primary hypertension Mixed hyperlipidemia Vitamin D deficiency General medical examination HEMOGLOBIN, GLYCOSYLATED Routine 07/29/2024 8:32 AM TEST CENTER ADMINISTRATOR Elevated glucose URINALYSIS, AUTO, COMPLETE Routine 07/29/2024 8:32 AM TEST CENTER ADMINISTRATOR Primary hypertension CBC W/DIFF AUTOMATED Routine 07/29/2024 8:32 AM TEST CENTER ADMINISTRATOR General medical examination Primary hypertension Mixed hyperlipidemia LIPID PANEL Routine 07/29/2024 8:32 AM TEST CENTER ADMINISTRATOR Mixed hyperlipidemia TSH W/REFLEX Routine 07/29/2024 8:32 AM TEST CENTER ADMINISTRATOR Mixed hyperlipidemia VITAMIN D, 25 OH Routine 07/29/2024 8:32 AM TEST CENTER ADMINISTRATOR Vitamin D deficiency URIC ACID BLOOD Routine 07/29/2024 8:32 AM TEST CENTER ADMINISTRATOR Primary hypertension Mixed hyperlipidemia COMPREHENSIVE METABOLIC PANEL Routine 07/29/2024 8:32 AM TEST CENTER ADMINISTRATOR Primary hypertension HEPATITIS C ANTIBODY Routine 10/31/2021 12:01 PM CDT Need for hepatitis C screening test from Last 3 Months or Most Recently Relevant to Health Maintenance Results * Pathology (09/10/2024 12:00 AM CDT) PATHOLOGY [facility] Department of Laboratory Medicine [address] [place] [address] , extension [phone] Pathology Report Surgical Pathology Report Name: CECILIA DURAN Specimen #: [id number] Age: 4 1960 (Age: 63) Location: [facility] Sex: F Procedure Date: 09/10/2024 Hospital #: [id number] Date Received: 09/13/2024 Date Reported: 09/14/2024 Provider: NISHI STONE MD Source: Colon, descending, polyp Clinical History: Screening colonoscopy. History of colon polyps. FINAL DIAGNOSIS: Colon, descending polyp, biopsy: -Tubular adenoma. Gross Description: Received in formalin, labeled with a patient label and as descending colon polyp is a 0.2 cm piece of cook tissue. The specimen is entirely submitted in cassette 1. Gross examination (when applicable), interpretation, and sign out were performed at [facility], [address] [place] [address]. Electronically Signed Out AMY CANTRELL MD [facility] TISSUE COLON STRUCTURE / Unknown 09/10/2024 11:39 AM CDT Nishi Stone MD PATHOLOGY/CYTOLOGY ORDERABLES Fi nal Result [facility] [address] [place] [address], [id number] * MAMMOGRAM GENERIC (SCAN ORDER) (08/12/2024) Anatomical Region Laterality Modality Other 08/12/2024 us [facility] Scanned SCANNING Final Resu lt * CULTURE STREP A (MG/SJS/SMD Only) (08/04/2024 2:59 PM TEST CENTER ADMINISTRATOR) THROAT CULTURE STREP A ONLY Negative for Group A Streptococci Negative for Group A Streptococci 08/05/2024 6:40 PM TEST CENTER ADMINISTRATOR [facility] STRUCTURE OF ANTERIOR PORTION OF NECK / Unknown 08/04/2024 2:59 PM TEST CENTER ADMINISTRATOR Jodie YATES MICROBIOLOGY - GENERAL ORDE RABPATRICIO Final Result [facility] [address] [place] [address], * CORONAVIRUS (COVID-19) INFLUENZA A & B ANTIGEN IA PANEL (08/04/2024) CORONAVIRUS ANTIGEN IA NEGATIVE NEGATIVE [facility] INFLUENZA A NEGATIVE NEGATIVE [facility] INFLUENZA B NEGATIVE NEGATIVE [facility] Internal Control: VALID VALID [facility] NASAL STRUCTURE / Unknown 08/04/2024 Jodie YATES MICROBIOLOGY - GENERAL ORDE RABPATRICIO Final Result [facility] [address] [place] [address], [place] * STREP A RAPID (08/04/2024) RAPID STREP TEST NEGATIVE NEGATIVE [facility] Internal Control: VALID VALID [facility] STRUCTURE OF ANTERIOR PORTION OF NECK / Unknown 08/04/2024 Jodie YATES MICROBIOLOGY - GENERAL ORDE RABPATRICIO Final Result [facility] [address] [place] [address], [place] * TSH W/REFLEX (07/29/2024 8:32 AM TEST CENTER ADMINISTRATOR) TSH 2.587 0.358 - 3.740 uIU/ML 07/29/2024 3:29 PM TEST CENTER ADMINISTRATOR [facility] 07/29/2024 8:32 AM TEST CENTER ADMINISTRATOR Jodie YATES LABORATORY Final Resul t Performing Organization Address [facility] de Phone Number [address] [address], [place] [phone] * (ABNORMAL) HEMOGLOBIN, GLYCOSYLATED (07/29/2024 8:32 AM TEST CENTER ADMINISTRATOR) HGB A1C 6.0 4.5 - 6.2 % 08/04/2024 10:09 AM TEST CENTER ADMINISTRATOR [facility] ESTIMATED AVG GLUCOSE 126(H) 74 - 106 MG/DL 08/04/2024 10:09 AM TEST CENTER ADMINISTRATOR [facility] 07/29/2024 8:32 AM TEST CENTER ADMINISTRATOR Jodie YATES LABORATORY Final Resul t Performing Organization Address [facility] de Phone Number [address] [address], [place] [phone] * (ABNORMAL) URINALYSIS (07/29/2024 8:32 AM TEST CENTER ADMINISTRATOR) COLOR (U) YELLOW 07/29/2024 2:34 PM TEST CENTER ADMINISTRATOR [facility] TRANSPARENCY CLOUDY(A) CLEAR 07/29/2024 2:[address] [facility] SPECIFIC GRAVITY (U) >1.030 1.003 - 1.040 07/29/2024 2:34 PM TEST CENTER ADMINISTRATOR [facility] U PH 5.5 5.0 - 9.0 07/29/2024 2:34 PM TEST CENTER ADMINISTRATOR [facility] PROTEIN RANDOM (U) NEGATIVE NEGATIVE 07/29/2024 2:34 PM TEST CENTER ADMINISTRATOR [facility] GLUCOSE (U) NEGATIVE NEGATIVE 07/29/2024 2:34 PM TEST CENTER ADMINISTRATOR [facility] KETONES MG/DL (U) NEGATIVE NEGATIVE 07/29/2024 2:34 PM TEST CENTER ADMINISTRATOR [facility] BILIRUBIN (U) NEGATIVE NEGATIVE 07/29/2024 2:34 PM TEST CENTER ADMINISTRATOR [facility] BLOOD (U) NEGATIVE NEGATIVE 07/29/2024 2:34 PM TEST CENTER ADMINISTRATOR [facility] UROBILINOGEN 0.2 0.0 - 2.0 EU/DL 07/29/2024 2:34 PM TEST CENTER ADMINISTRATOR [facility] NITRITES NEGATIVE NEGATIVE 07/29/2024 2:34 PM TEST CENTER ADMINISTRATOR [facility] LEUKOCYTES (U) NEGATIVE NEGATIVE 07/29/2024 2:34 PM TEST CENTER ADMINISTRATOR [facility] RBC/HPF 0-3 0 - 3 /HPF 07/29/2024 2:34 PM TEST CENTER ADMINISTRATOR [facility] WBC/HPF 0-3 0 - 3 /HPF 07/29/2024 2:34 PM TEST CENTER ADMINISTRATOR [facility] EPI/HPF 0-3 /HPF 07/29/2024 2:34 PM TEST CENTER ADMINISTRATOR [facility] BACTERIA (U) TRACE(A) NONE SEEN 07/29/2024 2:34 PM TEST CENTER ADMINISTRATOR [facility] AMORPHOUS SEDIMENT PRESENT 07/29/2024 2:34 PM TEST CENTER ADMINISTRATOR [facility] URINE SPECIMEN OBTAINED BY CLEAN CATCH PROCEDURE / Unknown 07/29/2024 8:32 AM TEST CENTER ADMINISTRATOR us Jodie YATES URINE ORDERABLES Final Resu lt [facility] [address] [place] [address], * (ABNORMAL) COMPREHENSIVE METABOLIC PANEL (07/29/2024 8:32 AM [facility]) [facility] Signature SODIUM S/P/B 141 136 - 145 MMOL/L 07/29/2024 3:[address] [facility] POTASSIUM S/P/B 4.7 3.5 - 5.1 MMOL/L 07/29/2024 3:[address] [facility] CHLORIDE S/P/B 105 98 - 107 MMOL/L 07/29/2024 3:[address] [facility] CO2 26.4 21 - 32 MMOL/L 07/29/2024 3:[address] [facility] GLUCOSE 116(H) 70 - 99 MG/DL 07/29/2024 3:[address] [facility] BUN 12 7 - 18 MG/DL 07/29/2024 3:[address] [facility] CREATININE S/P/B 0.76 0.55 - 1.02 MG/DL 07/29/2024 3:[address] [facility] CALCIUM S/P/B 9.0 8.4 - 10.5 MG/DL 07/29/2024 3:[address] [facility] BILIRUBIN TOTAL S/P/B 0.7 0.2 - 1.0 MG/DL 07/29/2024 3:[address] [facility] ALKALINE PHOSPHATASE S/P/B 72 50 - 130 U/L 07/29/2024 3:[address] [facility] AST 28 15 - 37 U/L 07/29/2024 3:[address] [facility] ALT 40 14 - 59 U/L 07/29/2024 3:[address] [facility] TOTAL PROTEIN S/P/B 7.4 6.4 - 8.2 G/DL 07/29/2024 3:[address] [facility] ALBUMIN S/P/B 4.1 3.4 - 5.0 G/DL 07/29/2024 3:29 PM TEST CENTER ADMINISTRATOR [facility] ANION GAP 9.6 5 - 15 MMOL/L 07/29/2024 3:29 PM TEST CENTER ADMINISTRATOR [facility] Comment:REFERENCE RANGE NOT ESTABLISHED OSMOLALITY (CALC) 293 MOSM/KG 025 3:29 PM TEST CENTER ADMINISTRATOR [facility] Comment:REFERENCE RANGE NOT ESTABLISHED GFR ESTIMATE 88(L) >90 ML/MIN/1. 73 M2 07/29/2024 3:29 PM TEST CENTER ADMINISTRATOR [facility] GFR NOTES GFR REFERENCE S: 07/29/2024 3:29 PM TEST CENTER ADMINISTRATOR [facility] Comment: THE ESTIMATED GFR IS CALCULATED USING [...] FAILURE: <15 ml/min/1.73 m2 07/29/2024 8:32 AM TEST CENTER ADMINISTRATOR Jodie YATES LABORATORY Final Resul t [facility] [address] [place] [address], * (ABNORMAL) LIPID PANEL (07/29/2024 8:32 AM TEST CENTER ADMINISTRATOR) CHOLESTEROL 210(H) <200 MG/DL 07/29/2024 3:29 PM TEST CENTER ADMINISTRATOR [facility] TRIGLYCERIDES 372(H) <150 MG/DL 07/29/2024 3:29 PM TEST CENTER ADMINISTRATOR [facility] HDL 52 >40 MG/DL 07/29/2024 3:29 PM TEST CENTER ADMINISTRATOR [facility] LDL-C 84 <100 MG/DL 07/29/2024 3:29 PM TEST CENTER ADMINISTRATOR [facility] VLDL CALCULATION 74(H) 5 - 28 MG/DL 07/29/2024 3:29 PM TEST CENTER ADMINISTRATOR [facility] CHOL/HDL RATIO 4.0 0.0 - 4.0 07/29/2024 3:[address] [facility] LDL/HDL 1.6 0.41 - 2.13 07/29/2024 3:29 PM TEST CENTER ADMINISTRATOR [facility] NON HDL CHOLESTEROL 158(H) <140 MG/DL 07/29/2024 3:[address] [facility] 07/29/2024 8:32 AM TEST CENTER ADMINISTRATOR us Jodie YATES LABORATORY Final Resul t [facility] [address] [place] [address], * (ABNORMAL) CBC W/DIFF AUTOMATED (07/29/2024 8:32 AM TEST CENTER ADMINISTRATOR) WBC 3.71(L) 4.00 - 10.80 x10'3/uL 07/29/2024 3:[address] [facility] RBC 4.14 4.10 - 5.40 x10'6/uL 07/29/2024 3:[address] [facility] HGB 13.1 12.0 - 16.0 G/DL 07/29/2024 3:[address] [facility] HCT 40.4 36.0 - 47.0 % 07/29/2024 3:[address] [facility] MCV 97.6 78.0 - 100.0 FL 07/29/2024 3:[address] [facility] MCH 31.6(H) 27.0 - 31.0 PG 07/29/2024 3:[address] [facility] MCHC 32.4(L) 33.0 - 36.0 G/DL 07/29/2024 3:[address] [facility] RDW 13.0 11.5 - 14.5 % 07/29/2024 3:[address] [facility] PLT 132(L) 150 - 350 x10'3/uL 07/29/2024 3:[address] [facility] MPV 12.3(H) 7.4 - 10.4 FL 07/29/2024 3:[address] [facility] DIFFERENTIAL TYPE AUTOMATED DIFFERENTIAL 07/29/2024 3:[address] [facility] NEUTROPHILS % 54.3 % 07/29/2024 3:[address] [facility] LYMPHOCYTES % 32.6 % 07/29/2024 3:[address] [facility] MONOCYTES % 8.6 % 07/29/2024 3:[address] [facility] EOSINOPHILS % 3.2 % 07/29/2024 3:[address] [facility] BASOPHILS % 1.3 % 07/29/2024 3:[address] [facility] IMMATURE GRANS % 0.0 % 07/29/2024 3:[address] [facility] ABS. NEUTROPHILS 2.01 1.60 - 8.30 x10'3/uL 07/29/2024 3:[address] [facility] ABS. LYMPHOCYTES 1.21 0.80 - 4.70 x10'3/uL 07/29/2024 3:[address] [facility] ABS. MONOCYTES 0.32 0.00 - 1.50 x10'3/uL 07/29/2024 3:[address] [facility] ABS. EOSINOPHILS 0.12 0.00 - 0.40 x10'3/uL 07/29/2024 3:14 PM TEST CENTER ADMINISTRATOR [facility] ABS. BASOPHILS 0.05 0.00 - 0.20 x10'3/uL 07/29/2024 3:14 PM TEST CENTER ADMINISTRATOR [facility] ABS. IMMATURE GRANULOCYTES 0.00 0.00 - 0.03 x10'3/uL 07/29/2024 3:14 PM TEST CENTER ADMINISTRATOR [facility] 07/29/2024 8:32 AM TEST CENTER ADMINISTRATOR Jodie YATES LABORATORY Final Resul t Performing Organization Address City/[facility]/ZIP Co de Phone Number [address] [address], * VITAMIN D, 25 OH (07/29/2024 8:32 AM TEST CENTER ADMINISTRATOR) VITAMIN D 25 HYDROXY TOTAL S/P/B 41.4 30 - 100 NG/ML 07/29/2024 3:29 PM TEST CENTER ADMINISTRATOR [facility] Comment: DEFICIENT <20 INSUFFICIENT 20-30 SUFFICIENT 30-100 07/29/2024 8:32 AM TEST CENTER ADMINISTRATOR Jodie YATES LABORATORY Final Resul t Performing Organization Address [facility] Co de Phone Number [address] [address], [place] [phone] * (ABNORMAL) URIC ACID BLOOD (07/29/2024 8:32 AM TEST CENTER ADMINISTRATOR) URIC ACID 6.4(H) 2.6 - 6.0 MG/DL 07/29/2024 2:35 PM TEST CENTER ADMINISTRATOR [facility] 07/29/2024 8:32 AM TEST CENTER ADMINISTRATOR Jodie YATES LABORATORY Final Resul t -IRENA BARRETT NESPELEM [address] [facility] [address], [place] [phone] * HEPATITIS C ANTIBODY (10/31/2021 12:01 PM CDT) HEPATITIS C AB NON-REACTI VE NON-REACT RAUDEL 11/02/2021 5:50 PM CDT [facility] Comment: ANTIBODIES TO HCV NOT DETECTED. DOES NOT EXCLUDE THE POSSIBILITY OF EXPOSURE TO HCV. 10/31/2021 12:0 1 PM CDT Jodie YATES LABORATORY Final Resul t Performing Organization Address City/State/[facility] Co de Phone Number [facility] [address] [place] [address], [place] [phone] from Last 3 Months or Most Recently Relevant to Health Maintenance Insurance [facility] Care Teams Career Law Clerk Relationship Specialty Start Date End Date Jodie Blanc APNP [address] [place], [place] [id number] PCP - General NURSE PRACTITIONER 02/25/19
--- OUTSIDE RECORDS SUMMARY | 2024-09-15 14:42 | XMS_ITS | Encounter Summary ---
Author Organization [facility] Address [address] [place] [id number] Care Team Providers Care Development Scientist Name Role Phone Jodie Blanc MILAN Primary Care Provider [phone] Reason for Visit * Reason Onset Date Comments Results 09/15/2024 Encounter Details Date Type Department Care Team (Late st Contact Info) Description 09/15/2024 Telephone [facility] Medical Group Multispecialty Care - [facility] [address] [facility] [place] [address] Familia Brooks MD [address] [facility] [address] [place], [place] [id number] Results Social History Tobacco Use Types Packs/Day Years Used Date Smoking Tobacco: Former Cigarettes 0.3 20 0 10/28/1998 - 10/28/2018 Smokeless Tobacco: Never Alcohol Use Standard Drinks/Week Comments Yes 10 [...] Sex Assigned at Female 08/04/2024 2:15 PM ADVERTISING PRODUCTION MANAGER Legal Sex Female 12:19 PM CDT Gender Identity Female 08/24/2024 2:26 PM ADVERTISING PRODUCTION MANAGER Sexual Orientation Not on file documented as of this encounter Progress Notes * Jumana Posadas RN - 09/15/2024 8:04 AM CDT Patient viewed results on Mocoplext. Recall placed. ----- Message from Dr. Familia Brooks sent at 09/14/2024 1:50 PM CDT ----- Your colon polyp was benign but precancerous type. Repeat colonoscopy in 5 years. documented in this encounter Plan of Treatment Not on file documented as of this encounter Visit Diagnoses Not on filedocumented in this encounter Additional Health Concerns Assessment Noted Time PHQ-9 Depression Total Score: 0 05/26/20 24 10:38 AM ADVERTISING PRODUCTION MANAGER documented as of this encounter Care Teams Development Scientist Relationship Specialty Start Date End Date Jodie Blanc APNP [address] [place] [id number] PCP - General NURSE PRACTITIONER 02/25/19 documented as of this encounter
--- OUTSIDE RECORDS SUMMARY | 2024-09-15 14:42 | XMS_ITS | Encounter Summary ---
Author Organization [facility] Address [address] [place] [address] Care Team Providers Care Caponizer Name Role Phone Jodie Blanc Primary Care Provider [phone]- [phone] Encounter Details Date Type Department Care Team (Late st Contact Info) Description 03/28/2022 [email or web address] Message Enc [facility] Family & Internal Medicine [id number] [place] [address] Jodie Blanc APNP [facility] [place] [address] Change in medication Social History Tobacco Use [...] Sex Assigned at Female 08/04/2024 2:15 PM SEMICONDUCTOR ASSEMBLER Legal Sex Female 12:19 PM CDT Gender Identity Female 08/24/2024 2:26 PM SEMICONDUCTOR ASSEMBLER Sexual Orientation Not on file documented as of this encounter Plan of Treatment Not on file documented as of this encounter Visit Diagnoses Not on filedocumented in this encounter Additional Health Concerns Infection Onset Date Last Indicated Resolved Time COVID-19 Rule Out 08/04/2024 08/04/2024 08/04/2024 2:55 PM SEMICONDUCTOR ASSEMBLER Assessment Noted Time PHQ-9 Depression Total Score: 0 05/31/20 21 2:49 PM SEMICONDUCTOR ASSEMBLER documented as of this encounter Care Teams Caponizer Relationship Specialty Start Date End Date Jodie Blanc APNP [address] [place] [address] PCP - General NURSE PRACTITIONER 02/25/19 documented as of this encounter
--- OUTSIDE RECORDS SUMMARY | 2024-09-15 14:42 | XMS_ITS | Data Portability ---
Author Organization [facility] Address [address] [place] [place] [address] Care Team Providers Care Glacing Machine Tender Name Role Phone NIRMALA SCHERER Primary Care Provider [phone] Assessment Encounter Date Assessment Date Assessment LastModified by Organization Details LastModified Time 12/13/2021 12/13/2021 Annual gynecological exam performed. Patient will come back in a year unless there are new symptoms. Not available 12/13/2021 13:52:20 05/19/2023 05/19/2023 Annual gynecological exam performed. Patient will come back in a year unless there are new symptoms. Not available 05/19/2023 14:18:56 06/17/2024 06/17/2024 Annual gynecological exam performed. Patient will come back in a year unless there are new symptoms. [email or web address] Not available 06/17/2024 14:29:53 Plan of Treatment Reminders Order Date Submit Date Provider Last Modified By Organization Details Last Modified Time Details Appointments None record ed. Lab None record ed. Referral None record ed. Procedures None record ed. Surgeries None record ed. Imaging MAMMO, diagno stic, digita l, bilate ral 2023 024 [facility], [address], [place], [address], 09:20:15 US, breast , unilat eral - right breast lump, around 9ocloc k 2023 024 [facility], [address], [address], [place], [address], 4 04:01:55 DEXA, axial skelet on + verteb ral fractu re assess ment 2023 024 [facility], [address], [place], [address], 4 04:01:56 MAMMO, diagno stic, digita l, bilate ral - right breast lump, around 9ocloc k [address], [address], [place], [address], 4 16:11:45 US, breast , unilat eral 2022 023 [facility], [address], [place], [address], 3 10:49:57 DEXA, axial skelet on + verteb ral fractu re assess ment [address], [address], [place], [address], 4 16:11:45 Medication Orders None record ed. [...] doron: Dashawn Staton Colle cted: 12/13 1611 INSURANCE PLAN SPECIALIST Order ing Locat ion: [place] [facility] [...] lesio n and sampl ing techn ique. Aajy nued regul ar scree kamlesh is the best metho d of cance r preve ntion . If repor lourdes cytol ogic findi ng do not corre late with physi marielena and/o r histo rical findi ngs, furth er inves tigat ion is recom william d, as clini issac chaudhary nted. Not Available [facility] (Lab) [address] [facility], [place], [address], 12/17/2021 18:14:46 05/19/20 23 05/19/2023 IMAGE GUIDE [...] as shakiri issac chaudhary nted. Not Available [facility] (Lab) [address], [place], [address], 05/21/2023 20:36:47 07/13/19 23 07/12/2022 MAMMO , scree kamlesh, bilat eral No observ ation record ed. [address] [address], [place], [address], 07/17/2022 11:13:54 07/15/19 23 07/12/2022 MAMMO , scree kamlesh, bilat eral No observ ation record ed. [address] [address], [place], [address], 07/22/2022 11:36:20 08/02/19 23 08/01/2022 MAMMO , scree kamlesh, bilat eral No observ ation record ed. [address] [address], [place], [address], 08/08/2022 12:09:52 08/13/1908/12/2024 MAMMO , diagn ostic , digit al, bilat eral No observ ation record ed. [address] [address], [place], [address], 09/03/2024 14:39:57 08/13/1908/12/2024 MAMMO , diagn ostic , digit al, bilat eral No observ ation record ed. [address] [address], [place], [address], 09/03/2024 14:39:57 Result Notes None recorded. Problems Name Problem SNOMED Code Status Onset Date Resolution Date Notes Provider Name and Address Organization Details Recorded Time SNOMED CT Concept Completed 201512/13/2021 Encntr for box spring frame builder exam (general) (routine) w/o abn findings; Practice ID: [id number] Nirmala samuels [facility] 13:16:05 Screenin g for malignan t neoplasm of rectum Completed 201512/13/2021 Encounter for screening for malignant neoplasm of rectum;Pr actice ID: [id number] Nirmala samuels [facility] 2 13:16:[address] Concept Completed 201612/13/2021 Encntr for general adult medical exam w/o abnormal findings; Practice ID: 0001 Nirmala samuels [facility] 2 13:16:05 Microsco pic hematuri a [id number] Completed 201112/13/2021 MICROSCOP IC HEMATURIA ;Recorded Elsewhere : No Locati on: [facility] So urce: EHR Chron ic: N Practic e ID: 0001 Bill able Time: 10:30:00 AM Nirmala Hu [facility] 2 13:16:05 Speciali zed medical examinat ion Completed 201212/13/2021 Gynecolog ical Examinati on;Record ed Elsewhere : No Locati on: [facility] So urce: EHR Chron ic: N Practic e ID: 0001 Bill able Time: 01:30:00 PM Nirmala Hu [facility] 2 13:16:05 Bone density finding [id number] Completed 201712/13/2021 Oth disrd of bone density and structure , unspecifi ed site;Wyatt rded Elsewhere : No Locati on: [facility] So urce: EHR Chron ic: N Practic e ID: 0001 Bill able Time: 01:00:00 PM Nirmala Hu [facility] 2 13:16:05 Screenin g for malignan t neoplasm of cervix Completed 201112/13/2021 Screening for malignant neoplasms of the cervix;Re corded Elsewhere : No Locati on: [facility] So urce: EHR Chron ic: N Practic e ID: 0001 Bill able Time: 10:30:00 AM Nirmala Hu [facility] 2 13:16:05 Adult health examinat ion Completed 201312/13/2021 Routine Medical Exam;Wyatt rded Elsewhere : No Locati on: [facility] So urce: EHR Chron ic: N Practic e ID: 0001 Bill able Time: 01:45:00 PM Nirmala samuels [facility] 2 13:16:05 Radiolog ic finding [id number] Completed 201512/13/2021 Oth abn and inconclus kvng findings on dx imaging of breast;Re corded Elsewhere : No Locati on: [facility] So urce: EHR Chron ic: N Practic e ID: 0001 Bill able Time: 03:33:13 PM Nirmala samuels [facility] 2 13:16:05 Postmeno pausal bleeding [id number] Completed 201212/13/2021 Postmenop ausal bleeding; Recorded Elsewhere : No Locati on: [facility] So urce: EHR Chron ic: N Practic e ID: 0001 Bill able Time: 03:00:00 PM Nirmala samuels [facility] 2 13:16:05 Body mass index 25-29 - overweig ht [id number] Completed 201612/13/2021 Body mass index (BMI) 27.0-27.9 , adult;Rec orded Elsewhere : No Locati on: [facility] So urce: EHR Chron ic: N Practic e ID: [id number] Bill able Time: 11:00:00 AM Nirmala Hu [facility] 2 13:16:05 Proteinu ortiz [id number] Completed 201212/13/2021 Proteinur ia;Practi ce ID: 0001 Nirmala Hu [facility] 2 13:16:05 Problem Notes None recorded. Procedures Surgical History Date Name Laterality Status Provider Name and Address Organization Details Recorded Time 09/11/19 24 Most Recent Bone Density completed Pauline Christie [facility] 07/15/2024 17:59:29 05/19/20 23 Date of Last Pap Smear completed Rosangela [facility] 05/19/2023 14:20:18 08/01/19 23 Date of Last Mammogram completed [facility] 05/19/2023 13:45:18 06/30/19 19 procedure on foot completed [facility] 05/19/2023 14:21:16 01/12/20 13 Colonoscopy completed [facility] 05/19/2023 13:42:39 10/29/19 13 endometrial biopsy completed Nirmala [facility] 12/13/2021 13:43:17 02/05/19 97 section completed [facility] 05/19/2023 14:21:55 06/30/18 78 extraction of wisdom tooth completed [facility] 05/19/2023 14:21:39 Imaging Results Imaging Date Name Status [facility]Modified by [facility] Details LastModified Time 07/12/2022 MAMMO, screening, bilateral completed [address], [address], 07/17/2022 11:13:54 07/12/2022 MAMMO, screening, bilateral completed [address], [address], 07/22/2022 11:36:20 08/01/2022 MAMMO, screening, bilateral completed [address], [address], 08/08/2022 12:09:52 08/12/2024 MAMMO, diagnostic, digital, bilateral active [email or web address] [address], [address], 09/03/2024 14:39:57 08/12/2024 MAMMO, diagnostic, digital, bilateral active [email or web address] [facility] [address], [place], [address], 09/03/2024 14:39:57 Procedure Notes None recorded. Medical Equipment None [...] Prescrib ed Elsewher e: Yes Loca tion: [facility] odify By: [email or web address] Encounte r DateTime : 11/15/19 01:15:00 PM Not Available Not Available Not Available Vitamin D2 1,250 mcg (50,000 unit) capsule take 1 capsule by oral route every week for 8 weeks 2017 active Prescrib ed Elsewher e: No Locat ion: [facility] odify By: [email or web address] n Encoun ter DateTime : 03/12/20 18 04:06:15 PM Not [...] Prescrib ed Elsewher e: Yes Loca tion: [facility] odify By: denise bossuntmagnus DateTime : 11/11/19 12 10:30:00 AM Not Available Not Available Not Available Tirosint 13 mcg capsule take 1 capsule by oral route every day 12/13 completed Prescrib ed Elsewher e: Yes Loca tion: [facility] M odify By: denise bossuntmagnus DateTime : 11/11/19 12 10:30:00 AM Not [...] Updated DateTime 12/13/2021 170.18 cm 30.4 kg/m2 40318.92 g 130 mm[Hg] 70 mm[Hg] Nirmala Hu [facility] 2 13:53:55 Date Recorded Body height Body mass index (BMI) Body weight Systolic blood pressure Diastolic blood pressure Provider Name and Address Organization Details Last Updated DateTime 05/19/2023 170.18 cm 30.7 kg/m2 88416.1 g 123 mm[Hg] 78 mm[Hg] Rosangela De La Cruz [facility] 3 14:19:59 Date Recorded Body height Body mass index (BMI) Body weight Systolic blood pressure Diastolic blood pressure Provider Name and Address Organization Details Last Updated DateTime 06/17/2024 170.18 cm 31.2 kg/m2 59219.6 g 131 mm[Hg] 85 mm[Hg] Pauline Christie [facility] 4 14:31:52 Social History Question Answer Notes LastModified by Organizat ion Details LastModified Time Tobacco Smoking Status Former Smoker Deann Razo, CHICHI [address], [place], [address], [facility] 06/17/2024 14:41:25 What Is Your Level [...] COVID-19 While That Case Was Ill? No [email or web address] Information not available 05/19/2023 In The 14 Days Before Symptom Onset, Have You Had Close Contact With A Person Who Is Under Investigation For COVID-19 While That Person Was Ill? No Information not available 05/19/2023 Have You Been To An Area Known To Be High Risk For COVID-19? No Information not available 05/19/2023 Are You Deaf Or Do You Have Serious Difficulty Hearing? No Information not available 12/13/2021 What Type Of Diet Are You Following? REGULAR Information not available 12/13/2021 Have You Ever Been Counseled For Unhealthy Alcohol Use? No [email or web address] Information not available 05/19/2023 Do You Use Your Seat Belt Or Car Seat Routinely? Yes Information not available 12/13/2021 Do You Have Smoke And Carbon Monoxide Detectors In Your Home? Yes Information not available 12/13/2021 Do You Feel Stressed (tense, Restless, Nervous, Or Anxious, Or Unable To Sleep At Night)? [id number] Information not available 12/13/2021 Do You Use Any Illicit Or Recreational Drugs? No Information not available 12/13/2021 Do You Use Sunscreen Routinely? Yes Information not available 12/13/2021 Has Tobacco Cessation Counseling Been Provided? No [email or web address] Information not available 05/19/2023 Do You Or Have You Ever Used Any Other Forms Of Tobacco Or Nicotine? No [email or web address] Information not available 05/19/2023 Sex: Unknown Functional [...] N Drug/Latex Allergies/Reactions N Blood Transfusion N Dermatologic Disorders N Lung Disease N Defects or Inherited Disease N Breast Problem N Gestational Diabetes N Hematologic disorders N Anesthesia Complications N History of STI N Deep Vein Thrombosis N Polycystic ovary syndrome N Anxiety Disorder N Autoimmune disease N Arthritis N Infertility N Polyps N Acid Reflux (GERD) N History of abnormal pap N Cancer N Stroke N Varicosities N Neurologic/Epilepsy N Endometriosis N High Cholesterol Y Headaches N Fibromyalgia N Kidney Disease N Heart Problems N [...] SNOMED-CT Code Diagnosis ICD10 Code Diagnosis Note [id number] Yuridia Crum [facility] [address] [address] 12/13/2021 13:31:17 12/13/2021 14:28:20 Gynecologic examination 24356749 Z01.419 Take Calcium with Vitamin D 12-1500mg daily. Do monthly self breast exams. It is advised to get annual flu shot in the fall and she could obtain at [facility] or [facility]. If you haven't received the Tdap vaccine [...] UTD PCP Routine Labs UTD PCPMammo ordered [id number] Deann Razo ELIZA [facility] [address] [address] 05/19/2023 14:08:05 05/19/2023 15:17:05 Gynecologic examination 23872572 Z01.419 WWEpostmen opausalpap updatedSTI testing declinedco lonoscopy UTDdexa order givenUTD with PCP for routine labsRTC in 1 yr or sooner if needed Take Calcium with Vitamin D daily. Do monthly self breast exams. It is advised to get annual flu shot in the fall and she could obtain at [facility] or [facility]. If you haven't received the [...] email Screening for malignant neoplasm of breast [id number] Z12.39 Screening for osteoporosis 322255912 Z13.820 Breast lump 74929728 N63 .0 Right breast lump present for 2-3 yrshas seen specialist previously , no biopsy requireddi agnostic imaging w/ u/s ordered if needed [id number] CHICHI Florentino [facility] [address] [address] 06/17/2024 14:04:23 06/17/2024 15:07:46 Gynecologic examination 14132424 Z01.419 WWEpostmen opausalPap - UTD/not indicated todaySTI [...] have been answered. Mass of right breast 648 [id number] 7643986 N63.10 diagnostic mammogram with right breast u/s for right breast lump Screening for osteoporosis 818860136 Z13.820 Health Concerns Section Related Observation LastModified by Organization Detai ls LastModified Time None Recorded Concern Status LastModified by Organization Details LastModified Time None Recorded Advance Directives Directive None Recorded Payers Encounter Date Sequence Insurance Name Policy Number Policy Nichols Covered Member ID Nichols Member ID Guarantor Name 12/13/2021 1 [facility] [id number] Cecilia Duran [id number] Angela Duran 05/19/2023 1 [facility] [id number] Cecilia Duran [id number] Angela Duran 06/17/2024 1 [facility] [id number] Cecilia Duran [id number] Angela Duran Notes Date Note Type Note Provider Name and Address Organization Details Recorded Time 2 text/html Annual Cardiovascular Operating Room Nurse Post-MenopausalReported bypatient.Menopausal Symptoms:no menopausal symptoms; normal vaginal [...] to schedule mammogram; history of recent colonoscopy Yuridia Crum, [facility]- [address], [place], [address], [facility] 12/13/2021 14:16:41 3 text/html Annual Cardiovascular Operating Room Nurse Post-MenopausalReported bypatient.Menopausal Symptoms:no menopausal symptoms; normal vaginal [...] biopsy required CHICHI Florentino [address], [place], [address], [facility] 05/19/2023 15:12:36 4 text/html Annual Cardiovascular Operating Room Nurse Post-MenopausalReported bypatient.Menopausal Symptoms:no menopausal symptoms; normal vaginal [...] nilm, HPV (-)mammogram exa last 2017colonoscopy 2013 CHICHI Florentino [address], [place], [address], [facility] 06/17/2024 15:05:13 OBGyn Episode Ob Episode Information Episode Created Date Number of Fetuses Patient Bloodtype Patient rh Status Prepregnancy Weight lbs Domestic Partner Domestic Partner Phone Father Name Pump Installer Status 12/14/19 22 1 CLOSED Fetus Data First Name Last Name Admitted to NICU Weight (g) Sex Living Outcome Pediatric Complications Fetus ID Race Codes Race Delivery Type 2919.77 1704 M Full Term [address] V Back Matt Calculation Initial Matt Date [...] Domestic Partner Domestic Partner Phone Father Name Pump Installer Status 12/14/19 22 1 CLOSED Fetus Data First Name Last Name Admitted to NICU Weight (g) Sex Living Outcome Pediatric Complications Fetus ID Race Codes Race Delivery Type 2891.64 9 F Full Term [address] Primary Matt Calculation Initial Matt Date Initial [...]
--- OUTSIDE RECORDS SUMMARY | 2024-09-15 14:42 | XMS_ITS | Referral Summary ---
Author Organization [facility] Address [address] [place] [address] Care Team Providers Care Strapper Name Role Phone Yuridia Crum INDUSTRIAL RELATIONS ANALYST Unavailable [phone]- [phone] Jodie Blanc Primary Care Provider + Allergies No known active allergies Medications multivitamin with minerals (Multiple Vitamin-Mineral s) tablet Take 1 tablet by mouth daily Active cholecalciferol (VITAMIN D-3) 2000 unit tablet Take by mouth Active fenofibrate micronized (LOFIBRA) 134 mg capsule Take one capsule daily 0 Active levothyroxine (SYNTHROID) 100 mcg tablet Take 100 mcg by mouth miller apprentice before breakfast 0 Active Active Problems Problem [...] 86.2 kg (190 lb) 06/06/2020 2:06 PM NEEDLE MOLDER Height 170.2 cm (5' 7 ) 06/06/2020 2:06 PM NEEDLE MOLDER Body Mass Index 29.76 06/06/2020 2:06 PM NEEDLE MOLDER Plan of Treatment Not on file Insurance Care Teams Strapper Relationship Specialty Start Date End Date Jodie Blanc PA [address] [place] [address] PCP - General Nurse Practitioner 05/29/20 Yuridia Crum NP Nurse Practitioner Nurse Practitioner 04/26/20
--- OUTSIDE RECORDS SUMMARY | 2024-09-15 14:42 | XMS_ITS | Clinical Summary ---
Author Organization [facility] Address [address], [facility] [address] [place] [address] Phone Care Team Providers Care Tool Room Gear Machine Operator Name Role Phone Jodie Blanc APRN, DB [...] Recently Relevant to Health Maintenance Care Teams Tool Room Gear Machine Operator Relationship Specialty Start Date End Date Jodie Blanc, JACLYN, SHELLFISH MEAT SEPARATOR OPERATOR [address] [place] [address] PCP - General Family Medicine 07/20/19
--- OUTSIDE RECORDS SUMMARY | 2024-09-15 14:42 | XMS_ITS | Clinical Summary ---
Author Organization [facility] Address [address] [place] [address] Care Team Providers Care Straight Pin Making Machine Operator Name Role Phone Yuridia Crum MATTRESS FILLER Unavailable [phone] Jodie Blanc Primary Care Provider + Allergies No known active allergies Medications multivitamin with minerals (Multiple Vitamin-Mineral s) tablet Take 1 tablet by mouth daily Active cholecalciferol (VITAMIN D-3) 2000 unit tablet Take by mouth Active fenofibrate micronized (LOFIBRA) 134 mg capsule Take one capsule daily 0 Active levothyroxine (SYNTHROID) 100 mcg tablet Take 100 mcg by mouth wireline field operator before breakfast 0 Active Active Problems Problem [...] 86.2 kg (190 lb) 06/06/2020 2:06 PM WHEAT COMBINE DRIVER Height 170.2 cm (5' 7 ) 06/06/2020 2:06 PM WHEAT COMBINE DRIVER Body Mass Index 29.76 06/06/2020 2:06 PM WHEAT COMBINE DRIVER Plan of Treatment Health Maintenance Due Date [...] patient's age to complete this topic Insurance frents ACCESS Socialthing OPEN ACCESS Care Teams Straight Pin Making Machine Operator Relationship Specialty Start Date End Date Jodie Blanc PA [address] [place] [address] PCP - General Nurse Practitioner 05/29/20 Yuridia Crum NP Nurse Practitioner Nurse Practitioner 04/26/20
== END 2024-09-15 13:16 | disposition home or self-care (01) ==
LOC: ANHIMG 13:16
PROVIDERS: PCP Registered Nurse; Visit Provider Nurse Practitioner
DX: R92.8 Other abnormal and inconclusive findings on diagnostic imaging of breast (principal)
CPT/HCPCS: 76641; 77061; 77065; G0279

== ENCOUNTER 2024-10-27 08:47 | Outpatient (CLI) | payer OTHER, SELFPAY ==
--- NOTE | ~2024-10-27 | MMUS_ITS ---
EXAMINATION: US breast biopsy RT w image, MM post biopsy diagnostic RT DATE: 10/27/2024 10:31 (accession [id number]), 10/27/2024 10:27 (accession [id number]) INDICATION: 63-year-old woman with a paternal family history of breast cancer presents for ultrasound -guided biopsy of a spiculated lesion with architectural distortion within the right breast. BREAST PARENCHYMAL COMPOSITION:Dense: The breasts are heterogeneously dense which may obscure small m asses TECHNIQUE: The procedure including the risks, benefits, and alternatives was discussed with the patie nt. Risks discussed included bleeding, nontargeted biopsy and infection. The patient understood the risks and agreed to proceed. The skin overlying the upper outer quadrant of the right breast was prepped and draped in usual steri le fashion. Anesthetic was administered with 1% lidocaine without epinephrine subcutaneously. Limited ultrasound examination of the right breast was then again performed. At the 10:00 position of the right breast approximately 5 cm from the nipple is an irregular mass wit h angular margins and posterior shadowing measuring 13 x 15 mm, suitable for biopsy. A 9 G vacuum-assisted biopsy device was placed using continuous ultrasound guidance beneath the abnor mality at the 10:00 position. The mass is tethered to the underlying chest wall muscle, possibly representing surrounding tissue re sponse. The vacuum-assisted device was utilized to obtain 5 samples. The 10-gauge biopsy device was removed, leaving the [address] Through the introducer, a butterfly marker was placed. All devices were then removed, and a sterile dressing applied. There were no immediate complications. Post biopsy mammography was then performed in both the CC and MLO positions demonstrating both a coil and a butterfly microclip in the upper outer quadrant of the right breast without a significant mena lesional hematoma. IMPRESSION: 1. Technically successful ultrasound-guided vacuum-assisted core biopsy of a markedly suspicious mass at the 10:00 position of the right breast approximately 5 cm from the nipple, as detailed above. Pathology pending Reviewed, dictated and finalized at location A. IMPRESSION: 1. Technically successful ultrasound-guided vacuum-assisted core biopsy of a ma rkedly suspicious mass at the 10:00 position of the right breast approximately 5 cm from the nipple, as detailed above. Pathology pending
--- OUTSIDE RECORDS SUMMARY | 2024-10-27 09:16 | XMS_ITS | Encounter Summary ---
Author Organization [facility] Address [address] [place] [id number] Care Team Providers Care Hr Payroll Coordinator Name Role Phone Jodie Blanc Primary Care Provider [phone] Encounter Details Date Type Department Care Team (Late st Contact Info) Description 03/28/2022 [place] Message Enc [facility] Family [facility] Internal Medicine [id number] [place] [address] Jodie Blanc APNP [facility] [place] [address] Change in medication Social History Tobacco Use [...] Sex Assigned at Female 08/04/2024 2:15 PM CONCRETE TILE MACHINE OPERATOR Legal Sex Female 12:19 PM CDT Gender Identity Female 08/24/2024 2:26 PM CONCRETE TILE MACHINE OPERATOR Sexual Orientation Not on file documented as of this encounter Plan of Treatment Not on file documented as of this encounter Visit Diagnoses Not on filedocumented in this encounter Additional Health Concerns Infection Onset Date Last Indicated Resolved Time COVID-19 Rule Out 08/04/2024 08/04/2024 08/04/2024 2:55 PM CONCRETE TILE MACHINE OPERATOR Assessment Noted Time PHQ-9 Depression Total Score: 0 05/31/20 21 2:49 PM CONCRETE TILE MACHINE OPERATOR documented as of this encounter Care Teams Hr Payroll Coordinator Relationship Specialty Start Date End Date Jodie Blanc APNP [address] [place] [id number] PCP - General NURSE PRACTITIONER 02/25/19 documented as of this encounter
--- OUTSIDE RECORDS SUMMARY | 2024-10-27 09:16 | XMS_ITS | Referral Summary ---
Author Organization [facility] Address [address] [place] [address] Care Team Providers Care Kick Press Operator Name Role Phone Yuridia Crum HYDRAULIC PLUMBER HELPER Unavailable [phone] Jodie Blanc Primary Care Provider + Deann Razo HYDRAULIC PLUMBER HELPER Unavailable [phone] Encounters Date Type Department Care Team Description 09/17/2024 Orders Only [facility] [address] [facility] [address] [place] [address] Vijaya Graham NP Abnormal mammogram (Primary Dx) from Last 3 Months Allergies No known active allergies Medications multivitamin with minerals (Multiple Vitamin-Mineral s) tablet Take 1 tablet by mouth daily Active cholecalciferol (VITAMIN D-3) 2000 unit tablet Take by mouth Active fenofibrate micronized (LOFIBRA) 134 mg capsule Take one capsule daily 0 Active levothyroxine (SYNTHROID) 100 mcg tablet Take 100 mcg by mouth beater dumper before breakfast 0 Active Active Problems Problem [...] 86.2 kg (190 lb) 06/06/2020 2:06 PM NOTCHING MACHINE OPERATOR Height 170.2 cm (5' 7 ) 06/06/2020 2:06 PM NOTCHING MACHINE OPERATOR Body Mass Index 29.76 06/06/2020 2:06 PM NOTCHING MACHINE OPERATOR Plan of Treatment Not on file Insurance [employer] OPEN ACCESS [employer] Care Teams Kick Press Operator Relationship Specialty Start Date End Date Jodie Blanc PA [address] [place], [place] [id number] PCP - General Nurse Practitioner 05/29/20 Yuridia Crum NP Nurse Practitioner Nurse Practitioner 04/26/20 Deann Razo NP [address] [address] Nurse Practitioner Obstetrics and Gynecology 09/24/24
--- OUTSIDE RECORDS SUMMARY | 2024-10-27 09:16 | XMS_ITS | Clinical Summary ---
Author Organization [facility] Address [address], [facility] [address] [place] [address] Phone Care Team Providers Care Fire Truck Driver Name Role Phone Jodie Blanc APRN, BD Primary Care Provider + Social History Tobacco [...] Recently Relevant to Health Maintenance Care Teams Fire Truck Driver Relationship Specialty Start Date End Date Jodie Blanc, JACLYN, DIRECTOR MEETINGS [address] [place] [id number] PCP - General Family Medicine 07/20/19
--- OUTSIDE RECORDS SUMMARY | 2024-10-27 09:16 | XMS_ITS | Clinical Summary ---
Author Organization [facility] Address [address] [place] [address] Care Team Providers Care Transmission Assembler Name Role Phone Jodie Blanc Primary Care Provider [phone] Allergies No known active allergies Medications VITAMIN E OR Take 800 mg by mouth daily. Active Cholecalciferol (VITAMIN D) 125 MCG (5000 UT) Cap 06/30/19 24 Active icosapent ethyl (VASCEPA) 1 G capsuleIndications :Elevated triglycerides with high cholesterol Take 2 capsules (2 g total) by mouth 2 (two) times daily with meals. 360 capsule 3 04/01/20 24 Active levothyroxine (SYNTHROID) 100 MCG tabletIndications: Acquired hypothyroidism TAKE ONE TABLET BY MOUTH ONCE DAILY IN THE MORNING 90 tablet 3 06/22/20 24 Active traZODone (DESYREL) 50 MG tabletIndications: Primary insomnia Take 1 tablet (50 mg total) by mouth nightly at bedtime. 30 tablet 1 07/01/19 25 Active Additional Information Patient taking differently:50 mg OralAs needed, Sleep, Reported on 09/02/2024 losartan (COZAAR) 50 MG tabletIndications: Primary hypertension Take 1 tablet (50 mg total) by mouth daily. 90 tablet 3 07/01/19 25 Active atorvastatin (LIPITOR) 40 MG tabletIndications: Mixed hyperlipidemia Take 1 tablet (40 mg total) by mouth nightly at bedtime. 90 tablet 3 08/24/19 25 Active Active Problems Problem Noted Date Diagnosed [...] Overview (05/20/2024): Postmenopausal bleeding;Recorded Elsewhere: No Location: [facility] Source: EHR Chronic: N Practice ID: [id number] Billable Time: 03:00:00 PM Microscopic hematuria 11/11/2011 Overview (05/20/2024): MICROSCOPIC HEMATURIA;Recorded Elsewhere: No Location: [facility] Source: EHR Chronic: N Practice ID: [id number] Billable Time: 10:30:00 AM Resolved Problems Problem Noted Date Diagnosed Date Resolved Date Screening for colon cancer 05/26/2024 1 08/01/2023 Screening for colon cancer 05/26/2024 0 09/06/2024 Screening for colon cancer 05/26/2024 0 09/13/2024 Encounters Date Type Department Care Team Description 10/12/2024 Results Follow-Up [facility] [address] [phone] Jodie Blanc APNP CBC W/DIFF AUTOMATED 10/08/2024 8:20 AM CDT Laboratory Only [facility] [address] [address] Jodie Blanc APNP 10/08/2024 Travel 09/15/2024 Scan [facility] Scanned, [facility] Mammogram (SCAN); Ultrasound (SCAN) 09/15/2024 Telephone [facility] - [address], [address] [place] [address] Nishi Stone MD Results 09/10/2024 11:26 AM CDT Anesthesia Event [facility] [address] [place] [address] Aby Trammell, Clara Mathew CRNA 09/10/2024 11:12 AM CDT - 09/10/2024 11:46 AM CDT Surgery [facility] [address] [place] [address] Nishi Stone MD Colonoscopy with polypectomy 09/10/2024 9:18 AM CDT - 09/10/2024 12:30 PM CDT Hospital Encounter [facility] [address] [place] [address] Nishi Stoen MD Discharge Disposition: Home or Self Care (Routine Discharge) 09/10/2024 Travel 08/24/2024 2:20 PM DENTAL TECHNICIAN INSTRUCTOR Office Visit [facility] [address] [phone] Jodie Blanc APNP Annual 08/24/2024 Scan [facility] INFO SRVCS Scanned, [facility] 08/24/2024 Travel 08/18/2024 [facility]phone [facility] [address], [address] [place] [address] Nishi Stone MD Prior Authorization (Colonoscopy-[id number]) 08/12/2024 Scan [facility] SRVCS Scanned, Doc Med [facility] Mammogram (SCAN) 08/05/2024 MyChart Message Enc [facility] Internal [address] [phone] Jodie Blanc APNP Blood pressure 08/04/2024 2:00 PM DENTAL TECHNICIAN INSTRUCTOR Office Visit [facility] [address] [phone] Jodie Blanc APNP Sore Throat; Cough; Headache 08/04/2024 Travel 08/04/2024 Telephone [facility] [address] [phone] Jodie Blanc APNP Error 08/03/[address] [phone] Jodie Blanc APNP Lab Results 07/29/2024 8:40 AM DENTAL TECHNICIAN INSTRUCTOR Laboratory Only [address] [phone] Jodie Blanc APNP 07/29/2024 Travel from Last 3 Months Immunizations Immunization Administration Dates Next Due Arexvy Respiratory Syncytial [...] Sex Assigned at Female 08/04/2024 2:15 PM DENTAL TECHNICIAN INSTRUCTOR Legal Sex Female 12:19 PM CDT Gender Identity Female 08/24/2024 2:26 PM DENTAL TECHNICIAN INSTRUCTOR Sexual Orientation Not on file Last Filed [...] 64) Every 5 Years 1990 Annual Physical 08/24/2025 08/24/2024, 04/30, 10/31/2021 Mammogram Screening 09/15/2025 09/15/2024, 08/12/2024, 06/17/2023, Additional history exists Cervical Cancer Screening Pap Smear (Age 30 to 64) Every 3 Years 05/19/2026 05/19/2023, 12/13/2021 Cervical Cancer Screening with HPV 05/19/2026 Colorectal Cancer Screening Colonoscopy (10 Years) 09/11/2027 09/10/2024 DTaP, Tdap and Td Vaccines (2 - Td or Tdap) 04/05/2029 04/05/2019 Zoster Vaccines Completed 03/10/2019, 01/01/2019 Hepatitis C Completed 10/31/2021 RSV Immunization or 60+ Years Completed 03/25/2023 Pneumococcal Vaccine: 50+ Years Completed 05/13/2023 COVID-19 Vaccine Completed 07/01/2024, 11/2022, 05/15/2021, Additional history exists PHQ-2 ([facility]) Completed 08/24/2024 Meningococcal B Vaccine Aged Out No l onger eligible based on patient's age to complete this topic Meningococcal Vaccine Aged Out No favio brent eligible based on patient's age to complete this topic RSV Immunizations Under 20 Months Aged Out No longer eligible based on patient's age to complete this topic Procedures Procedure Name Priority Date/Time Associated Diagnosis Comments COLLECTION VENOUS BLOOD VENIPUNCTURE Routine 10/08/2024 8:45 AM CDT Thrombocytopenia CBC W/DIFF AUTOMATED Routine 10/08/2024 8:45 AM CDT Thrombocytopenia MAMMOGRAM GENERIC (SCAN ORDER) 09/15/2024 ULTRASOUND GENERIC (SCAN ORDER) 09/15/2024 COLONOSCOPY FLX DX W/COLLJ SPEC WHEN PFRMD 09/10/2024 11:26 AM CDT Screening for colon cancer History of colon polyps Case Notes C PATHOLOGY Routine 09/10/2024 12:00 AM CDT MAMMOGRAM GENERIC (SCAN ORDER) 08/12/2024 CULTURE STREP A Routine 08/04/2024 2:59 PM DENTAL TECHNICIAN INSTRUCTOR Sore throat STREP A RAPID Routine 08/04/2024 Sore throat Body aches CORONAVIRUS (COVID-19) INFLUENZA A & B ANTIGEN IA PANEL Routine 08/04/2024 Sore throat Body aches COLLECTION VENOUS BLOOD VENIPUNCTURE Routine 07/29/2024 9:06 AM DENTAL TECHNICIAN INSTRUCTOR Primary hypertension Mixed hyperlipidemia Vitamin D deficiency General medical examination HEMOGLOBIN, GLYCOSYLATED Routine 07/29/2024 8:32 AM DENTAL TECHNICIAN INSTRUCTOR Elevated glucose URINALYSIS, AUTO, COMPLETE Routine 07/29/2024 8:32 AM DENTAL TECHNICIAN INSTRUCTOR Primary hypertension CBC W/DIFF AUTOMATED Routine 07/29/2024 8:32 AM DENTAL TECHNICIAN INSTRUCTOR General medical examination Primary hypertension Mixed hyperlipidemia LIPID PANEL Routine 07/29/2024 8:32 AM DENTAL TECHNICIAN INSTRUCTOR Mixed hyperlipidemia TSH W/REFLEX Routine 07/29/2024 8:32 AM DENTAL TECHNICIAN INSTRUCTOR Mixed hyperlipidemia VITAMIN D, 25 OH Routine 07/29/2024 8:32 AM DENTAL TECHNICIAN INSTRUCTOR Vitamin D deficiency URIC ACID BLOOD Routine 07/29/2024 8:32 AM DENTAL TECHNICIAN INSTRUCTOR Primary hypertension Mixed hyperlipidemia COMPREHENSIVE METABOLIC PANEL Routine 07/29/2024 8:32 AM DENTAL TECHNICIAN INSTRUCTOR Primary hypertension HEPATITIS C ANTIBODY Routine 10/31/2021 12:01 PM CDT Need for hepatitis C screening test from Last 3 Months or Most Recently Relevant to Health Maintenance Results * (ABNORMAL) CBC W/DIFF AUTOMATED (10/08/2024 8:45 AM CDT) Only the most recent of2 resultswithin the time period is included. WBC 4.10 4.00 - 10.80 x10'3/uL 10/08/2024 3:03 PM CDT [facility] RBC 4.28 4.10 - 5.40 x10'6/uL 10/08/2024 3:03 PM CDT [facility] HGB 13.2 12.0 - 16.0 G/DL 10/08/2024 3:03 PM CDT [facility] HCT 41.0 36.0 - 47.0 % 10/08/2024 3:03 PM CDT [facility] MCV 95.8 78.0 - 100.0 FL 10/08/2024 3:03 PM CDT [facility] MCH 30.8 27.0 - 31.0 PG 10/08/2024 3:03 PM CDT [facility] MCHC 32.2(L) 33.0 - 36.0 G/DL 10/08/2024 3:03 PM CDT [facility] RDW 13.0 11.5 - 14.5 % 10/08/2024 3:03 PM CDT [facility] PLT 140(L) 150 - 350 x10'3/uL 10/08/2024 3:03 PM CDT [facility] MPV 12.3(H) 7.4 - 10.4 FL 10/08/2024 3:03 PM CDT [facility] DIFFERENTIAL TYPE AUTOMATED DIFFERENTIAL 10/08/2024 3:03 PM CDT [facility] NEUTROPHILS % 49.6 % 10/08/2024 3:03 PM CDT [facility] LYMPHOCYTES % 37.8 % 10/08/2024 3:03 PM CDT [facility] MONOCYTES % 8.0 % 10/08/2024 3:03 PM CDT [facility] EOSINOPHILS % 3.4 % 10/08/2024 3:03 PM CDT [facility] BASOPHILS % 1.0 % 10/08/2024 3:03 PM CDT [facility] IMMATURE GRANS % 0.2 % 10/08/2024 3:03 PM CDT [facility] ABS. NEUTROPHILS 2.03 1.60 - 8.30 x10'3/uL 10/08/2024 3:03 PM CDT [facility] ABS. LYMPHOCYTES 1.55 0.80 - 4.70 x10'3/uL 10/08/2024 3:03 PM CDT [facility] ABS. MONOCYTES 0.33 0.00 - 1.50 x10'3/uL 10/08/2024 3:03 PM CDT [facility] ABS. EOSINOPHILS 0.14 0.00 - 0.40 x10'3/uL 10/08/2024 3:03 PM CDT [facility] ABS. BASOPHILS 0.04 0.00 - 0.20 x10'3/uL 10/08/2024 3:03 PM CDT [facility] ABS. IMMATURE GRANULOCYTES 0.01 0.00 - 0.03 x10'3/uL 10/08/2024 3:03 PM CDT [facility] 10/08/2024 8:45 AM CDT Jodie العراقي LABORATORY Final Resul t [facility] [address] [place] [address], * MAMMOGRAM GENERIC (SCAN ORDER) (09/15/2024) Only the most recent of2 resultswithin the time period is included. Anatomical Region Laterality Modality Other 09/15/2024 us [facility] Scanned SCANNING Final Resu lt * ULTRASOUND GENERIC (SCAN ORDER) (09/15/2024) Anatomical Region Laterality Modality Other 09/15/2024 us [facility] Scanned SCANNING Final Resu lt * Pathology (09/10/2024 12:00 AM CDT) PATHOLOGY [facility] Department of Laboratory Medicine [address] [place] [address] , extension [phone] Pathology Report Surgical Pathology Report Name: CECILIA DURAN Specimen #: [id number] Age: 4 1960 (Age: 63) Location: [facility] Sex: F Procedure Date: 09/10/2024 Hospital #: [id number] Date Received: 09/13/2024 Date Reported: 09/14/2024 Provider: [...] interpretation, and sign out were performed at [facility], [address] [place] [address]. Electronically Signed Out AMY CANTRELL MD [facility] TISSUE COLON STRUCTURE / Unknown 09/10/2024 11:39 AM CDT Nishi Stone MD PATHOLOGY/CYTOLOGY ORDERABLES Fi nal Result Performing Organization Address City/[facility]/ZIP Co de Phone Number [facility] [address] [place] [address], [phone] * CULTURE STREP A (MG/SJS/SMD Only) (08/04/2024 2:59 PM DENTAL TECHNICIAN INSTRUCTOR) THROAT CULTURE STREP A ONLY Negative for Group A Streptococci Negative for Group A Streptococci 08/05/2024 6:40 PM DENTAL TECHNICIAN INSTRUCTOR [facility] STRUCTURE OF ANTERIOR PORTION OF NECK / Unknown 08/04/2024 2:59 PM DENTAL TECHNICIAN INSTRUCTOR Jodie YATES MICROBIOLOGY - GENERAL WAYNE BISHOP Final Result Performing Organization Address City/[facility]/ZIP Co de Phone Number [facility] [address] [place] [address], * CORONAVIRUS (COVID-19) INFLUENZA A & B ANTIGEN IA PANEL (08/04/2024) CORONAVIRUS ANTIGEN IA NEGATIVE NEGATIVE [facility] INFLUENZA A NEGATIVE NEGATIVE [facility] INFLUENZA B NEGATIVE NEGATIVE [facility] Internal Control: VALID VALID [facility] NASAL STRUCTURE / Unknown 08/04/2024 Jodie YATES MICROBIOLOGY - GENERAL ORDE RABPATRICIO Final Result Performing Organization Address [facility] Co de Phone Number [place] [phone], [place] * STREP A RAPID (08/04/2024) Pathologist [facility] RAPID STREP TEST NEGATIVE NEGATIVE [facility] Internal Control: [facility] STRUCTURE OF ANTERIOR PORTION OF NECK / Unknown 08/04/2024 Jodie YATES MICROBIOLOGY - GENERAL ORDE RABPATRICIO Final Result Performing Organization Address [facility] Co de Phone Number [place] [phone], [place] * TSH W/REFLEX (07/29/2024 8:32 AM DENTAL TECHNICIAN INSTRUCTOR) Pathologist [facility] TSH 2.587 0.358 - 3.740 uIU/ML 07/29/2024 3:29 PM DENTAL TECHNICIAN INSTRUCTOR [facility] 07/29/2024 8:32 AM DENTAL TECHNICIAN INSTRUCTOR Jodie YATES LABORATORY Final Resul t Performing Organization Address [facility] de Phone Number [facility] [address] [place] [address], [place] [phone] * (ABNORMAL) HEMOGLOBIN, GLYCOSYLATED (07/29/2024 8:32 AM DENTAL TECHNICIAN INSTRUCTOR) Pathologist [facility] HGB A1C 6.0 4.5 - 6.2 % 08/04/2024 10:09 AM DENTAL TECHNICIAN INSTRUCTOR [facility] ESTIMATED AVG GLUCOSE 126(H) 74 - 106 MG/DL 08/04/2024 10:09 AM DENTAL TECHNICIAN INSTRUCTOR [facility] 07/29/2024 8:32 AM DENTAL TECHNICIAN INSTRUCTOR us Jodie Goyo Jayashree YATES LABORATORY Final Resul t [facility] [address] [place] [address], [place] [phone] * (ABNORMAL) URINALYSIS (07/29/2024 8:32 AM DENTAL TECHNICIAN INSTRUCTOR) COLOR (U) YELLOW 07/29/2024 2:34 PM DENTAL TECHNICIAN INSTRUCTOR [facility] TRANSPARENCY CLOUDY(A) CLEAR 07/29/2024 2:34 PM DENTAL TECHNICIAN INSTRUCTOR [facility] SPECIFIC GRAVITY (U) >1.030 1.003 - 1.040 07/29/2024 2:34 PM DENTAL TECHNICIAN INSTRUCTOR [facility] U PH 5.5 5.0 - 9.0 07/29/2024 2:34 PM DENTAL TECHNICIAN INSTRUCTOR [facility] PROTEIN RANDOM (U) NEGATIVE NEGATIVE 07/29/2024 2:34 PM DENTAL TECHNICIAN INSTRUCTOR [facility] GLUCOSE (U) NEGATIVE NEGATIVE 07/29/2024 2:34 PM DENTAL TECHNICIAN INSTRUCTOR [facility] KETONES MG/DL (U) NEGATIVE NEGATIVE 07/29/2024 2:34 PM DENTAL TECHNICIAN INSTRUCTOR [facility] BILIRUBIN (U) NEGATIVE NEGATIVE 07/29/2024 2:34 PM DENTAL TECHNICIAN INSTRUCTOR [facility] BLOOD (U) NEGATIVE NEGATIVE 07/29/2024 2:34 PM DENTAL TECHNICIAN INSTRUCTOR [facility] UROBILINOGEN 0.2 0.0 - 2.0 EU/DL 07/29/2024 2:34 PM [facility] NITRITES NEGATIVE NEGATIVE 07/29/2024 2:34 PM [facility] LEUKOCYTES (U) NEGATIVE NEGATIVE 07/29/2024 2:34 PM [facility] RBC/HPF 0-3 0 - 3 /HPF 07/29/2024 2:34 PM [facility] WBC/HPF 0-3 0 - 3 /HPF 07/29/2024 2:34 PM DENTAL TECHNICIAN INSTRUCTOR [facility] EPI/HPF 0-3 /HPF 07/29/2024 2:34 PM DENTAL TECHNICIAN INSTRUCTOR [facility] BACTERIA (U) TRACE(A) NONE SEEN 07/29/2024 2:34 PM DENTAL TECHNICIAN INSTRUCTOR [facility] AMORPHOUS SEDIMENT PRESENT 07/29/2024 2:34 PM DENTAL TECHNICIAN INSTRUCTOR [facility] URINE SPECIMEN OBTAINED BY CLEAN CATCH PROCEDURE / Unknown 07/29/2024 8:32 AM DENTAL TECHNICIAN INSTRUCTOR Jodie YATES URINE ORDERABLES Final Resu lt [facility] [address] [place] [address], * (ABNORMAL) COMPREHENSIVE METABOLIC PANEL (07/29/2024 8:32 AM DENTAL TECHNICIAN INSTRUCTOR) SODIUM S/P/B 141 136 - 145 MMOL/L 07/29/2024 3:29 PM DENTAL TECHNICIAN INSTRUCTOR [facility] POTASSIUM S/P/B 4.7 3.5 - 5.1 MMOL/L 07/29/2024 3:29 PM [facility] CHLORIDE S/P/B 105 98 - 107 MMOL/L 07/29/2024 3:29 PM DENTAL TECHNICIAN INSTRUCTOR [facility] CO2 26.4 21 - 32 MMOL/L 07/29/2024 3:29 PM DENTAL TECHNICIAN INSTRUCTOR [facility] GLUCOSE 116(H) 70 - 99 MG/DL 07/29/2024 3:29 PM [facility] BUN 12 7 - 18 MG/DL 07/29/2024 3:29 PM [facility] CREATININE S/P/B 0.76 0.55 - 1.02 MG/DL 07/29/2024 3:29 PM DENTAL TECHNICIAN INSTRUCTOR [facility] CALCIUM S/P/B 9.0 8.4 - 10.5 MG/DL 07/29/2024 3:29 PM [facility] BILIRUBIN TOTAL S/P/B 0.7 0.2 - 1.0 MG/DL 07/29/2024 3:29 PM [facility] ALKALINE PHOSPHATASE S/P/B 72 50 - 130 U/L 07/29/2024 3:29 PM [facility] AST 28 15 - 37 U/L 07/29/2024 3:29 PM [facility] ALT 40 14 - 59 U/L 07/29/2024 3:29 PM [facility] TOTAL PROTEIN S/P/B 7.4 6.4 - 8.2 G/DL 07/29/2024 3:29 PM [facility] ALBUMIN S/P/B 4.1 3.4 - 5.0 G/DL 07/29/2024 3:29 PM [facility] ANION GAP 9.6 5 - 15 MMOL/L 07/29/2024 3:29 PM [facility] Comment:REFERENCE RANGE NOT ESTABLISHED OSMOLALITY (CALC) 293 MOSM/KG 025 3:29 PM [facility] Comment:REFERENCE RANGE NOT ESTABLISHED GFR ESTIMATE 88(L) >90 ML/MIN/1. 73 M2 07/29/2024 3:29 PM [facility] GFR NOTES GFR REFERENCE S: 07/29/2024 3:29 PM [facility] Comment: THE ESTIMATED GFR IS CALCULATED USING [...] FAILURE: <15 ml/min/1.73 m2 07/29/2024 8:32 AM DENTAL TECHNICIAN INSTRUCTOR Jodie AYTES LABORATORY Final Resul t [facility] [address] [place] [address], * (ABNORMAL) LIPID PANEL (07/29/2024 8:32 AM DENTAL TECHNICIAN INSTRUCTOR) CHOLESTEROL 210(H) <200 MG/DL 07/29/2024 3:29 PM DENTAL TECHNICIAN INSTRUCTOR [facility] TRIGLYCERIDES 372(H) <150 MG/DL 07/29/2024 3:29 PM DENTAL TECHNICIAN INSTRUCTOR [facility] HDL 52 >40 MG/DL 07/29/2024 3:29 PM DENTAL TECHNICIAN INSTRUCTOR [facility] LDL-C 84 <100 MG/DL 07/29/2024 3:29 PM DENTAL TECHNICIAN INSTRUCTOR [facility] VLDL CALCULATION 74(H) 5 - 28 MG/DL 07/29/2024 3:29 PM DENTAL TECHNICIAN INSTRUCTOR [facility] CHOL/HDL RATIO 4.0 0.0 - 4.0 07/29/2024 3:29 PM DENTAL TECHNICIAN INSTRUCTOR [facility] LDL/HDL 1.6 0.41 - 2.13 07/29/2024 3:29 PM DENTAL TECHNICIAN INSTRUCTOR [facility] NON HDL CHOLESTEROL 158(H) <140 MG/DL 07/29/2024 3:29 PM DENTAL TECHNICIAN INSTRUCTOR [facility] 07/29/2024 8:32 AM DENTAL TECHNICIAN INSTRUCTOR Jodie YATES LABORATORY Final Resul t [facility] [address] [place] [address], * VITAMIN D, 25 OH (07/29/2024 8:32 AM DENTAL TECHNICIAN INSTRUCTOR) Pathologist [facility] VITAMIN D 25 HYDROXY TOTAL S/P/B 41.4 30 - 100 NG/ML 07/29/2024 3:29 PM DENTAL TECHNICIAN INSTRUCTOR [facility] Comment: DEFICIENT <20 INSUFFICIENT 20-30 SUFFICIENT 30-100 07/29/2024 8:32 AM DENTAL TECHNICIAN INSTRUCTOR Jodie Jayashree YATES LABORATORY Final Resul t Performing Organization Address City/[facility]/ZIP Co de Phone Number [place] [phone] [place] [address], * (ABNORMAL) URIC ACID BLOOD (07/29/2024 8:32 AM DENTAL TECHNICIAN INSTRUCTOR) [facility] URIC ACID 6.4(H) 2.6 - 6.0 MG/DL 07/29/2024 2:35 PM DENTAL TECHNICIAN INSTRUCTOR [facility] 07/29/2024 8:32 AM DENTAL TECHNICIAN INSTRUCTOR Jodie Jayashree العراقي LABORATORY Final Resul t Performing Organization Address [facility] Co de Phone Number [place] [address] [place] [address], * HEPATITIS C ANTIBODY (10/31/2021 12:01 PM CDT) [facility] HEPATITIS C AB NON-REACTI VE NON-REACT RAUDEL 11/02/2021 5:50 PM CDT [facility] Comment: ANTIBODIES TO HCV NOT DETECTED. DOES NOT EXCLUDE THE POSSIBILITY OF EXPOSURE TO HCV. 10/31/2021 12:0 1 PM CDT Jodie Jayashree YATES LABORATORY Final Resul t [facility] [address] [place] [address], [id number] from Last 3 Months or Most Recently Relevant to Health Maintenance Insurance [facility] Care Teams Transmission Assembler Relationship Specialty Start Date End Date Jodie Blanc APNP [address] [place] [id number] PCP - General NURSE PRACTITIONER 02/25/19
--- OUTSIDE RECORDS SUMMARY | 2024-10-27 09:17 | XMS_ITS | Clinical Summary ---
Author Organization [facility] Address [address] [place] [address] Care Team Providers Care Boring And Filling Machine Operator Name Role Phone Yuridia Crum [employer] Unavailable [phone] Jodie Blanc Primary Care Provider + Deann Razo [employer] SAL[employer] Unavailable Allergies No known active allergies Medications multivitamin with minerals (Multiple Vitamin-Mineral s) tablet Take 1 tablet by mouth daily Active cholecalciferol (VITAMIN D-3) 2000 unit tablet Take by mouth Active fenofibrate micronized (LOFIBRA) 134 mg capsule Take one capsule daily 0 Active levothyroxine (SYNTHROID) 100 mcg tablet Take 100 mcg by mouth certified detention deputy before breakfast 0 Active Active Problems Problem Noted Date Diagnosed Date Acquired hypothyroidism 03/22/2019 Vitamin D deficiency 03/22/2019 Encounters Date Type Department Care Team Description 09/17/2024 Orders Only [facility] [address] [facility] [address] [place] [address] Vijaya Graham NP Abnormal mammogram (Primary Dx) from Last 3 Months Surgical History Surgery Date Site/Laterality Comments SECTION [...] 86.2 kg (190 lb) 06/06/2020 2:06 PM CHECKER Height 170.2 cm (5' 7 ) 06/06/2020 2:06 PM CHECKER Body Mass Index 29.76 06/06/2020 2:06 PM CHECKER Plan of Treatment Health Maintenance Due Date [...] patient's age to complete this topic Insurance [employer] OPEN ACCESS [employer] OPEN ACCESS Care Teams Boring And Filling Machine Operator Relationship Specialty Start Date End Date Jodie Blanc PA [address] [place] [phone] PCP - General Nurse Practitioner 05/29/20 Yuridia Crum NP Nurse Practitioner Nurse Practitioner 04/26/20 Deann Razo NP [address] [place] [address] Nurse Practitioner Obstetrics and Gynecology 09/24/24
== END 2024-10-27 08:48 | disposition home or self-care (01) ==
PROVIDERS: PCP Registered Nurse; Visit Provider Nurse Practitioner
DX: R92.2 Inconclusive mammogram (principal); R92.8 Other abnormal and inconclusive findings on diagnostic imaging of breast
CPT/HCPCS: 19083; 77065; 88305; 88342; 88360; A4648